=== PATIENT | female | born 2000 | race African-American/Black ===

== ENCOUNTER 2020-12-27 16:26 | Emergency (ER) | payer OTHER, SELFPAY ==
[2020-12-27 17:00] VITALS: BP 141/71; PULSE 82; RESP 19; TEMP 36.1; O2SAT 100
[2020-12-27 17:14] LABS: Basophils Absolute Auto 0.1 K/mm3 (0.0-0.1); Basophils Percent Auto 0.7 % (0.2-1.2); Eosinophils Absolute Auto 0.2 K/mm3 (0-0.3); Eosinophils Percent Auto 2.9 % (0-4.4); Hematocrit 38.1 % (37.0-47.0); Hemoglobin 12.9 g/dL (12.0-15.0); Immature Granulocyte Absolute 0.02 K/mm3 (0.00-0.031); Immature Granulocyte Percent A 0.3 % (0-0.5); Lymphocytes Absolute Auto 3.51 K/mm3 (0.9-3.2); Lymphocytes Percent Auto 46.9 % (18.3-44.2); Mean Corpuscular HGB Conc 33.9 g/dl (32-36); Mean Corpuscular Hemoglobin 29.1 pg (26-34); Mean Platelet Volume 8.8 fl (7.4-10.4); Monocytes Absolute Auto 0.5 K/mm3 (0.1-0.6); Monocytes Percent Auto 6.8 % (2.6-8.5); Neutrophils Absolute Auto 3.2 K/mm3 (1.3-6.7); Neutrophils Percent Auto 42.4 % (45.5-73.1); Platelet Count Result 324 k/mm3 (150-375); Red Blood Count 4.43 M/mm3 (4.2-5.4); Red Cell Distribution Width 12.4 % (11.5-14.5); White Blood Count 7.5 K/mm3 (4.5-10.0)
[2020-12-27 17:25] LABS: Alanine Aminotransferase 11 U/L (4-35); Albumin Level 4.7 g/dL (3.5-5.1); Alkaline Phosphatase 81 U/L (38-126); Anion Gap 7 mmol/L (8-16); Aspartate Amino Transferase 23 U/L (14-36); Bilirubin,Total 0.7 mg/dL (0.2-1.3); Blood Urea Nitrogen 11 mg/dL (7-17); Calcium 9.4 mg/dL (8.4-10.2); Carbon Dioxide 26 mmol/L (22-30); Chloride 105 mmol/L (98-107); Estimated CRCL calculation 87 ml/min; Estimated Glomerular Filt Rate > 60; Glucose 91 mg/dL (65-105); Potassium 4.1 mmol/L (3.4-5.0); Sodium 138 mmol/L (137-145)
[2020-12-27 19:43] VITALS: BP 133/82; PULSE 77; RESP 16; O2SAT 100
--- NOTE | 2020-12-27 19:47 | ED.FEMALEGU ---
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 Patient states that she was on Depo-Provera for a number of years. She states her last dose of this was approximately 2 years ago. She notes that she had a period earlier in November and has bleeding pretty much since then. She called her ASSORTMENT PLANNER's office, was given oral control pills. She notes that she is been taking that for approximately 2 weeks and is still bleeding. She called back today did note that she was still bleeding, was told that the doctor said that everything would be okay and she could follow-up however the nurse answering the phone said that she should probably come into the ER to be evaluated. Related Data Home Medications Medication Instructions Recorded Confirmed No Home Medications 12/27/20 12/27/20 Allergies Allergy/AdvReac Type Severity Reaction Status Date / Time No Known Allergies Allergy Verified 12/27/20 19:42 Review of Systems Review of Systems: Narrative: CONSTITUTIONAL: Denies fever, chills, or sweats. EYES: Denies visual changes, redness, or discharge. ENT: Denies rhinorrhea, congestion, sore throat, or otalgia. CARDIOVASCULAR: Denies chest pain, palpitations, or edema. RESPIRATORY: Denies cough or dyspnea. GASTROINTESTINAL: Denies abdominal pain, nausea, vomiting, or diarrhea. GENITOURINARY: Denies dysuria or hematuria. Endorses vaginal bleeding SKIN: Denies rash or itching. MUSCULOSKELETAL: Denies back pain, joint pain, or myalgia. NEUROLOGIC: Denies headache, numbness, dizziness, or weakness. PSYCHIATRIC: Denies anxiety or depression. Exam Narrative: Exam Narrative: GENERAL: Well-appearing, well-nourished, and in no acute distress. HEAD: Normocephalic, atraumatic. EYES: PERRLA and EOMI. ENT: Nares clear, no rhinorrhea or epistaxis. Mucous membranes moist. NECK: Supple. No adenopathy or masses. No carotid bruits or JVD CHEST: Clear to auscultation. No respiratory distress. No wheezes rales or rhonchi HEART: Regular rate and rhythm. No murmur heard. Normal peripheral pulses. ABDOMEN: Soft, nontender, nondistended, normal active bowel sounds. : deferred per pt EXTREMITIES: Normal range of motion. No edema. SKIN: Warm, dry, no rash. NEURO: No focal deficits. Alert and oriented x3. PSYCH: Normal mood and affect. Course Vital Signs Vital signs: Vital Signs Temperature 36.1 C L 12/27/20 17:00 Pulse Rate 82 12/27/20 17:00 Respiratory Rate 19 12/27/20 17:00 Blood Pressure 141/71 H 12/27/20 17:00 Pulse Oximetry 100 12/27/20 17:00 Temperature 36.1 C L 12/27/20 17:00 Pulse Rate 77 12/27/20 19:43 Respiratory Rate 16 12/27/20 19:43 Blood Pressure 133/82 12/27/20 19:43 Pulse Oximetry 100 12/27/20 19:43 MDM - Female Genitourinary MDM Narrative Medical decision making narrative: Laboratory data reviewed, within normal limits. Patient's hemoglobin is 12.9. Recommended she continue with the oral control pills as this may just take a little while longer to take effect. She can follow-up with her ASSORTMENT PLANNER. I did offer to perform a pelvic exam, patient did politely declined. Feel this is appropriate. Patient will be discharged. Medical Records Attestation: I reviewed the patient's medical records. Lab Data Attestation: I reviewed the patient's lab results. Result diagrams: 12/27/20 17:06 12/27/20 17:06 Labs: Lab Results 12/27/20 12/27/20 Range/Units 17:06 17:06 WBC 7.5 (4.5-10.0) K/mm3 RBC 4.43 (4.2-5.4) M/mm3 Hgb 12.9 (12.0-15.0) g/dL Hct 38.1 (37.0-47.0) % MCV 86.0 (80-100) fl MCH 29.1 (26-34) pg MCHC 33.9 (32-36) g/
[2020-12-27 20:20] LABS: Beta HCG Quantitative < 2.39 mIU/ML
== END 2020-12-27 20:31 | disposition home or self-care (01) ==
PROVIDERS: Emergency Medicine Emergency Medical Services; Emergency Provider Emergency Medicine
DX: N93.9 Abnormal uterine and vaginal bleeding, unspecified (principal)
CPT/HCPCS: 36415; 80053; 84702; 85025; 99283

== ENCOUNTER 2021-05-03 11:12 | Emergency (ER) | payer OTHER, SELFPAY ==
--- NOTE | ~2021-05-03 | US_ITS ---
EXAMINATION: US OB <=14 wk fetus w TV DATE: 05/03/2021 13:02 INDICATION: Vaginal bleeding and lower abdominal pain. Miscarriage. Comparison:No prior studies for comparison. TECHNIQUE: Multiple transabdominal and endovaginal sonographic images of the pelvis performed. FINDINGS: The uterus measures 7.5 x 4.5 x 3.6 cm. The endometrial complex measures 9.5 mm. Endometriu m is heterogeneous. The right ovary measures 2.6 x 2.4 x 2 cm and the left ovary measures 3.1 x 2.5 x 2.1 cm. There are small follicles in each ovary. Normal doppler signal in both ovaries. There is trace free fluid in the pelvis. There are no abnormal masses seen on either side. IMPRESSION: 1. Unremarkable pelvic ultrasound. No evidence for intrauterine or retained products of con ception. Reviewed, dictated and finalized at location B. IMPRESSION: 1. Unremarkable pelvic ultrasound. No evidence for intrauterine or re tained products of conception.
[2021-05-03 11:17] VITALS: BP 124/79; PULSE 96; RESP 18; TEMP 36.6; O2SAT 100
--- NOTE | 2021-05-03 11:59 | ED.FEMALEGU ---
HPI - Female Genitourinary General Chief complaint: Vaginal Bleeding Stated complaint: miscarriage, fever Time Seen by Provider: 05/03/21 11:47 Source: patient and RN notes reviewed Mode of arrival: ambulatory Limitations: no limitations History of Present Illness HPI Narrative: Patient is 21 years old -[place] female presents with dizziness, seconds,, hot feeling, temperature 102 prior to arrival to the emergency room. Patient reported having Tylenol 1-1/2-hour prior to arrival. Patient also complaining of vaginal bleeding which is getting better compared to the last few days. Patient is 6 weeks , had vaginal bleeding 4 days ago, went to [place] [facility], diagnosed of threatened , ultrasound showed intrauterine 6 weeks and 4 days. 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 Patient is healthy otherwise, does not smoke or drink and uses marijuana occasionally Related Data Home Medications Medication Instructions Recorded Confirmed No Home Medications 12/27/20 12/27/20 Allergies Allergy/AdvReac Type Severity Reaction Status Date / Time No Known Allergies Allergy Verified 05/03/21 11:20 Review of Systems Review of Systems: Narrative: CONSTITUTIONAL: Denies fever, chills, or sweats. EYES: Denies visual changes, redness, or discharge. ENT: Denies rhinorrhea, congestion, sore throat, or otalgia. CARDIOVASCULAR: Denies chest pain, palpitations, or edema. RESPIRATORY: Denies cough or dyspnea. GASTROINTESTINAL: Denies abdominal pain, nausea, vomiting, or diarrhea. GENITOURINARY: Denies dysuria or hematuria. SKIN: Denies rash or itching. MUSCULOSKELETAL: Denies back pain, joint pain, or myalgia. NEUROLOGIC: Denies headache, numbness, or weakness. PSYCHIATRIC: Denies anxiety or depression. [facility] Social History Social History Gender identity (if verbalized by the patient): Female Exam Narrative: Exam Narrative: General appearance: Well-developed, well-nourished Skin: Normal color Head: Normocephalic, nontraumatic Eyes: Clear conjunctiva ENT: Oropharynx normal, ears normal, nose normal Neck: Supple, nontender Chest and respiratory: Airway patent, no respiratory distress, no accessory muscle use Heart: Regular rate/rhythm Abdomen: Soft, nontender, no organomegaly, quiet bowel sounds Vascular: Normal peripheral pulses, normal capillary refill. 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 Dupont nurse practitioner, Path Patient can go home and contact Dr. Dupont as needed Date: 05/03/21 Time: 14:40 Vital Signs Vital signs: Vital Signs Temperature 36.6 C 05/03/21 11:17 Pulse Rate 96 05/03/21 11:17 Respiratory Rate 18 05/03/21 11:17 Blood Pressure 124/79 05/03/21 11:17 Pulse Oximetry 100 05/03/21 11:17 Temperature 36.6 C 05/03/21 11:17 Pulse Rate 96 05/03/21 11:17 Respiratory Rate 18 05/03/21 11:17 Blood Pressure 124/79 05/03/21 11:17 Pulse Oximetry 100 05/03/21 11:17 MDM - Female Genitourinary MDM Narrative Medical decision making narrative: My concern as below. Labs, pelvic ultrasound, pelvic exam, UA ordered. Further plan to follow Differential Diagnosis Differential diagnosis: Likely urinary tract infection and other (, urinary tract infection) Lab Data Result diagrams: 05/03/21 12:12 05/03/21 12:12 Labs: Lab Results 05/03/21 05/03/21
[2021-05-03 12:43] LABS: Basophils Percent Auto 0.3 % (0.2-1.2); Eosinophils Absolute Auto 0.1 K/mm3 (0-0.3); Eosinophils Percent Auto 1.3 % (0-4.4); Hematocrit 40.6 % (37.0-47.0); Hemoglobin 13.4 g/dL (12.0-15.0); Immature Granulocyte Absolute 0.02 K/mm3 (0.00-0.031); Immature Granulocyte Percent A 0.3 % (0-0.5); Lymphocytes Absolute Auto 2.77 K/mm3 (0.9-3.2); Mean Corpuscular Hemoglobin 29.3 pg (26-34); Mean Corpuscular Volume 88.6 fl (80-100); Mean Platelet Volume 8.9 fl (7.4-10.4); Monocytes Absolute Auto 0.4 K/mm3 (0.1-0.6); Monocytes Percent Auto 6.2 % (2.6-8.5); Neutrophils Absolute Auto 3.4 K/mm3 (1.3-6.7); Neutrophils Percent Auto 50.9 % (45.5-73.1); Platelet Count Result 275 k/mm3 (150-375); Red Blood Count 4.58 M/mm3 (4.2-5.4); Red Cell Distribution Width 12.4 % (11.5-14.5); White Blood Count 6.8 K/mm3 (4.5-10.0)
[2021-05-03 12:45] LABS: Add Urine Microscopic? YES; Appearance Urine Cloudy (Clear); Bilirubin Urine Negative (Negative); Blood Urine 3+ (Negative); Color Urine Yellow (Yellow); Glucose Urine UA Negative (Negative); Ketones Urine Negative (Negative); Leukocyte Esterase Ur 2+ LEU/UL (Negative); Nitrate Urine Negative (Negative); Protein Urine Negative (Negative); RBC Urine >75 /hpf (0-2); Squamous Epithelial Cell Urine Moderate /hpf (Few); WBC Urine 16-20 /hpf
[2021-05-03 13:04] LABS: Alanine Aminotransferase 12 U/L (4-35); Albumin Level 4.6 g/dL (3.5-5.1); Alkaline Phosphatase 68 U/L (38-126); Anion Gap 12 mmol/L (8-16); Aspartate Amino Transferase 24 U/L (14-36); Bilirubin,Total 0.8 mg/dL (0.2-1.3); Blood Urea Nitrogen 10 mg/dL (7-17); Calcium 9.7 mg/dL (8.4-10.2); Carbon Dioxide 23 mmol/L (22-30); Chloride 106 mmol/L (98-107); Estimated CRCL calculation 97 ml/min; Estimated Glomerular Filt Rate > 60; Glucose 89 mg/dL (65-105); Sodium 141 mmol/L (137-145)
[2021-05-03 13:20] LABS: Beta HCG Quantitative 92.66 mIU/ML
--- NOTE | 2021-05-03 13:30 | PC.NURSE ---
Pt. is refusing IV access and IVFs. ERP aware and is ok
[2021-05-03 14:26] VITALS: BP 116/72; PULSE 84; RESP 14; O2SAT 99
== END 2021-05-03 15:10 | disposition home or self-care (01) ==
PROVIDERS: Emergency Provider Emergency Medicine
DX: O03.9 Complete or unspecified spontaneous abortion without complication (principal)
CPT/HCPCS: 36415; 76801; 76817; 80053; 81001; 84702; 85025; 87086; 99284

== ENCOUNTER 2025-06-06 22:34 | Emergency (ER) | payer OTHER, SELFPAY ==
--- OUTSIDE RECORDS SUMMARY | 2025-06-06 22:36 | XMS_ITS | Encounter Summary ---
Author Organization [facility] Address [address] [place] [address] Care Team Providers Care Steel Barrel Reamer Name Role Phone Unavailable Primary Care Provider Unavailabl e Reason for Visit * Reason Comments Labs Only Encounter Details Date Type Department Care Team (Late st Contact Info) Description 06/05/2025 10:00 AM CDT Office Visit [facility] at [facility] [employer] [place] [address] [place] [address] Screening for condition Social History Tobacco Use Types Packs/Day Years Used Date Smoking Tobacco: Never Smokeless Tobacco: Never Alcohol Use Standard Drinks/Week Comments Not Currently 0 (1 standard drink = 0.6 oz pur e alcohol) Feeling Safe Answer Date Recorded Are you in a relationship wi th someone who hurts you emotionally and/or physically? Unable to obtain 09/01/2023 Comments No Sex and Gender Information Value Date Recorded Sex Assigned at Not on file Legal Sex Female 10:44 AM CDT Gender Identity Not on file Sexual Orientation Not on file documented as of this encounter Last Filed Vital Signs Vital Sign Reading Time Taken Comments Blood Pressure 118/76 06/05/2025 10:11 AM CDT Pulse - - Temperature - - Respiratory Rate - - Oxygen Saturation - - Inhaled Oxygen Concentration - - Weight 71.2 kg (157 lb) 06/05/2025 10:11 AM CDT Height 154.9 cm (5' 1) 06/05/2025 10:11 AM CDT Body Mass Index 29.66 06/05/2025 10:11 AM CDT documented in this encounter Progress Notes * Lily Harmon RN - 06/05/2025 10:11 AM CDT Pt presents for annual wellness screening labs. Right AC successful, 1 stick. Pt tolerated well. documented in this encounter Plan of Treatment Not on file documented as of this encounter Procedures Procedure Name Priority Date/Time Associated Diagnosis Comments CBC WITH DIFFERENTIAL Routine 06/05/2025 9:44 AM CDT Screening for condition TSH Routine 06/05/2025 9:44 AM CDT Screening for condition LIPID PANEL Routine 06/05/2025 9:44 AM CDT Screening for condition COMPREHENSIVE METABOLIC PANEL Routine 06/05/2025 9:44 AM CDT Screening for condition documented in this encounter Results * (ABNORMAL) CBC WITH DIFFERENTIAL (06/05/2025 9:44 AM CDT) WBC 6.1 3.8 - 10.8 Thousand/ uL [facility] RBC 4.72 3.80 - 5.10 Million/u L [facility] HEMOGLOBIN 13.6 11.7 - 15.5 g/dL [facility] HEMATOCRIT 42.6 35.0 - 45.0 % [facility] MCV 90.3 80.0 - 100.0 fL [facility] MCH 28.8 27.0 - 33.0 pg [facility] MCHC 31.9(L) 32.0 - 36.0 g/dL [facility] Comment: For adults, a slight decrease in the calculated MCHC value (in the range of 30 to 32 g/dL) is most likely not clinically significant; however, it should be interpreted with caution in correlation with other red cell parameters and the patient's clinical condition. RDW 13.0 11.0 - 15.0 % [facility] PLATELETS 252 140 - 400 Thousand/ uL [facility] MPV 9.6 7.5 - 12.5 fL [facility] NEUTROPHIL ABSOLUTE 2,983 1,500 - 7,800 cells/uL [facility] LYMPHOCYTE ABSOLUTE 2,513 850 - 3,900 cells/uL [facility] MONOCYTE ABSOLUTE 390 200 - 950 cells/uL [facility] EOSINOPHIL ABSOLUTE 171 15 - 500 cells/uL [facility] BASOPHILS ABSOLUTE 43 0 - 200 cells/uL [facility] NEUTROPHIL 48.9 % [facility] LYMPHOCYTES 41.2 % [facility] MONOCYTE 6.4 % [facility] EOSINOPHILS 2.8 % [facility] BASOPHILS 0.7 % [facility] Comment: Test Performed at: [facility] [place] [address] [place] [address] Bisi Graham Blood 06/05/2025 9:44 AM CDT 06/06/2025 2:01 AM CDT us Nanda Love MD HEMATOLOGY ORDERABLES Final Re sult [facility] [phone] [facility] [place] [address] [place] [address] * COMPREHENSIVE METABOLIC PANEL (06/05/2025 9:44 AM CDT) GLUCOSE 87 65 - 99 mg/dL [facility] Comment: Fasting reference interval BUN 10 7 - 25 mg/dL [facility] [place] CREATININE 0.58 0.50 - 0.96 mg/dL [facility] GFR 128 > OR = 60 mL/min/1. 73m2 [facility] BUN/CREAT RATIO SEE NOTE: 6 - 22 (calc) [facility] Comment: Not Reported: BUN and Creatinine are within reference range. SODIUM 137 135 - 146 mmol/L [facility] POTASSIUM 4.1 3.5 - 5.3 mmol/L [facility] CHLORIDE 103 98 - 110 mmol/L [facility] CO2 26 20 - 32 mmol/L [facility] [place] CALCIUM 9.2 8.6 - 10.2 mg/dL [facility] TOTAL PROTEIN 7.5 6.1 - 8.1 g/dL [facility] ALBUMIN 4.3 3.6 - 5.1 g/dL [facility] GLOBULIN 3.2 1.9 - 3.7 g/dL (calc) [facility] [place] ALBUMIN/GLOBULIN RATIO 1.3 1.0 - 2.5 (calc) [facility] [place] BILIRUBIN TOTAL 0.5 0.2 - 1.2 mg/dL [facility] ALKALINE PHOSPHATASE 83 31 - 125 U/L [facility] AST 14 10 - 30 U/L [facility] ALT 10 6 - 29 U/L [facility] Comment: Test Performed at: [place] [address] [place] [address] NataliyaRaadmarichuy Toña Santos Blood 06/05/2025 9:44 AM CDT 06/06/2025 2:01 AM CDT us Nanda Love MD CHEMISTRY ORDERABLES Final Res ult [facility] [phone] [place] [address] [place] [address] * (ABNORMAL) LIPID PANEL (06/05/2025 9:44 AM CDT) CHOLESTEROL 139 <200 mg/dL [facility] HDL 39(L) > OR = 50 mg/dL [facility] TRIGLYCERIDE 178(H) <150 mg/dL [facility] LDL CALCULATED 73 mg/dL (calc) [facility] Comment: Reference range: <100 Desirable range <100 mg/dL for primary prevention; <70 mg/dL for patients with CHD or diabetic patients with > or = 2 CHD risk factors. LDL-C is now calculated using the Hernandez calculation, which is a validated novel method providing better accuracy than the Friedewald equation in the estimation of LDL-C. Mp BRANCH et al. ELAINA. 2013;310(19): 0337-9633 (http://education.Szl/faq/IEZ850) CHOL/HDL RATIO 3.6 <5.0 (calc) [facility] [place] NON-HDL CHOLESTEROL 100 <130 mg/dL (calc) [facility] Comment: For patients with diabetes plus 1 major ASCVD risk factor, treating to a non-HDL-C goal of <100 mg/dL (LDL-C of <70 mg/dL) is considered a therapeutic option. Test Performed at: [place] [address] [place] [phone] Nataliya-Tanya Ding Vo Blood 06/05/2025 9:44 AM CDT 06/06/2025 2:01 AM CDT Nanda Love MD CHEMISTRY ORDERABLES Final Res ult Performing Organization Address City/[facility]/ZIP Code Phone Number [facility] [phone] [facility] [place] [address] [place] [phone] * TSH (06/05/2025 9:44 AM CDT) TSH 3.05 mIU/L [facility] Comment: Reference Range > or = 20 Years 0.40-4.50 Ranges First trimester 0.26-2.66 Second trimester 0.55-2.73 Third trimester 0.43-2.91 Test Performed at: [place] [address] [place] [phone] Nataliya-Sonidomarichuy Ding Vo Blood 06/05/2025 9:4 4 AM CDT 06/06/2025 2:01 AM CDT Nanda Love MD CHEMISTRY ORDERABLES Final Res ult Performing Organization Address City/[facility]/ZIP Code Phone Number [facility] [phone] [place] [address] [address] [place] [phone] documented in this encounter Visit Diagnoses Diagnosis Screening for condition Screening for unspecified condition documented in this encounter
--- OUTSIDE RECORDS SUMMARY | 2025-06-06 22:36 | XMS_ITS | Encounter Summary ---
Author Organization [facility] Address [address] [place] [address] Care Team Providers Care Enrober Tender Name Role Phone Unavailable Primary Care Provider Unavailabl e Encounter Details Date Type Department Care Team (Late st Contact Info) Description 06/06/2025 Results Follow-Up [facility] at [facility] [employer] [place] [address] [place] [address] Nanda Love MD [address] [address] TSH, LIPID PANEL, COMPREHENSIVE METABOLIC PANEL, CBC WITH DIFFERENTIAL Social History Tobacco Use Types Packs/Day Years [...] on file documented as of this encounter Plan of Treatment Not on file documented as of this encounter Visit Diagnoses Not on filedocumented in this encounter
--- OUTSIDE RECORDS SUMMARY | 2025-06-06 22:37 | XMS_ITS | Patient Health Record ---
Author Organization [facility] [employer] Address [address] [place] [address] Care Team Providers Care Professor Of Family Medicine Name Role Phone Annabella Martin Unavailable [phone] Megan West Unavailable [phone] Allergies No Known Allergies Results Component Value Reference Range Notes THCCOOH Reviewed date:01/13/2025 04:32:14 PM Interpretation: Performing Lab:[address] [place] [address], Director - [id number] Notes/Report: An exception occurred while processing this report and so it has incomplete data. Please contact [employer] for assistance. THCCOOH 30.4 15.0 ng/mL Not Medicated Inconsistent PDF Report CE_OUT_RAW_CO MMON_SRC_ORU UDT Reviewed date:01/10/2025 01:09:25 PM Interpretation: Performing Lab: Notes/Report: THC POS 0 - 50 ng/ml Cocaine NEG 0 - 300 ng/ml Amphetamine NEG 0 - 1000 ng/ml Buprenorphine (BUP) NEG 0 - 10 ng/ml Secobarbital (Bar) NEG 0 - 300 ng/ml Oxazepam (BZO) NEG 0 - 300 ng/ml 1-gpippxnecm-6,4-vbalhnxm-6, 3-dipheny lpyrrolidine (EDDP) NEG 0 - 300 ng/ml Methamphetamine (MET) NEG 0 - 1000 ng/ml Methylenedioxymethamphetamine (MDMA) NEG 0 - 500 ng/ml Morphine (MOP 300/DGS1854) NEG 0 - 300 ng/ml Methadone (MTD) NEG 0 - 300 ng/ml Phencyclidine (PCP) NEG 0 - 25 ng/ml Nortriptyline (TCA) NEG 0 - 1000 ng/ml Oxycodone NEG 0 - 300 ng/ml x NEG 0 - 300 ng/ml Reason For Referral No Information Medications Medication SIG (Take, Route, Fr equency, Duration) Notes Start Date End Date Status Sertraline HCl 25 MG 1 tablet Orally Onc e a day; Duration: 90 days Active Social History Tobacco Use: Social History Observation Description Date Details (start date - stop date) Never Smoker NA - NA Sex Assigned At : Social History Observation Description Sex Assigned At Female Tobacco Control (Standard) Question Answer Notes Tobacco use: Nonsmoker AUDIT-C (Standard) Question Answer Notes Did you have a drink contain ing alcohol in the past year? Yes How often did you have six o r more drinks on one occasion in the past year? Never (0 point) How many drinks did you have on a typical day when you were drinking in the past year? 3 or 4 drinks (1 point) How often did you have a dri nk containing alcohol in the past year? Monthly or less (1 point) Problems Problem Type SNOMED Code ICD Code Onset Dates Problem Status W/U Status Risk Notes Problem Generalized anxiety disorder (84699551) ISSA (generalized anxiety disorder) (F41.1) Active confirmed Problem Mild recurrent major depression (75245867) MDD (major depressive disorder), recurrent episode, mild (F33.0) Active confirmed Vital Signs Heart Rate 98 /min 05/16/2025 Height-cm 154.94 cm 05/16/2025 Blood pressure diastolic 79 mm Hg 05/16/2025 Weight-kg 74.84 kg 05/16/2025 Height 61 in 05/16/2025 Blood pressure systolic 111 mm Hg 05/16/2025 Weight 165 lbs 05/16/2025 BMI 31.17 kg/m2 05/16/2025 Encounters Encounter Location Date Provider Diagnosis [employer] [address] [facility] [address] [place] [address] 01/10/2025 Annabella Veronica ISSA (generalized anxiety disorder) F41.1 and MDD (major depressive disorder), recurrent episode, mild F33.0 [employer] [address] [facility] [address] [place] [address] 02/14/2025 Annabella Kurilla ISSA (generalized anxiety disorder) F41.1 ; MDD (major depressive disorder), recurrent episode, mild F33.0 ; Encounter for screening for depression Z13.31 and Encounter for screening for cardiovascular disorders Z13.6 [facility] [employer] [place] [address] [facility] [address] [place] [address] 02/21/2025 Megan Hemann ISSA (generalized anxiety disorder) F41.1 ; MDD (major depressive disorder), recurrent episode, mild F33.0 and Encounter for screening for depression Z13.31 [facility] [employer] [place] [address] [facility] [address] [place] [address] 03/21/2025 Megan Hemann ISSA (generalized anxiety disorder) F41.1 ; MDD (major depressive disorder), recurrent episode, mild F33.0 and Encounter for screening for depression Z13.31 [facility] [employer] [place] [address] [address] 04/04/2025 Megan Hemann ISSA (generalized anxiety disorder) F41.1 and MDD (major depressive disorder), recurrent episode, mild F33.0 [facility] [employer] [place] [address] [address] 04/18/2025 Megan Hemann Encounter for screen ing for depression Z13.31 ; ISSA (generalized anxiety disorder) F41.1 and MDD (major depressive disorder), recurrent episode, mild F33.0 [facility] [employer] [place] [address] [address] 05/02/2025 Megan Hemann ISSA (generalized anxiety disorder) F41.1 and MDD (major depressive disorder), recurrent episode, mild F33.0 [facility] [employer] [place] [address] [facility] [address] [place] [address] 05/16/2025 Annabella Kurilla ISSA (generalized anxiety disorder) F41.1 ; MDD (major depressive disorder), recurrent episode, mild F33.0 ; Encounter for screening for depression Z13.31 and Encounter for screening for cardiovascular disorders Z13.6 [facility] [employer] [place] [address] [facility] [address] [place] [address] 05/16/2025 Megan Hemann ISSA (generalized anxiety disorder) F41.1 and MDD (major depressive disorder), recurrent episode, mild F33.0 [facility], [facility] [address] [place] [address] 05/30/2025 Megan West ISSA (generalized anxiety disorder) F41.1 ; MDD (major depressive disorder), recurrent episode, mild F33.0 and Encounter for screening for depression Z13.31 [facility] [place] [address] [place] [address] 01/10/2025 Annabelladanielle Martin [facility], [facility] [address] [place] [address] 01/13/2025 Annabella Martin [facility], [facility] [address] [facility] [address] [place] [address] 01/13/2025 Annabelladanielle Martin [facility], [place] [address] [facility] [address] [place] [address] 01/13/2025 Annabella Martin [facility], [place] [address] [facility] [address] [place] [address] 01/17/2025 Annabella Martin [facility], [place] [address] [facility] [address] [place] [address] 01/19/2025 Annabella Martin [facility], [place] [address] [facility] [address] [place] [address] 01/26/2025 Annabelladanielle Martin [facility], [place] [address] [facility] [address] [place] [address] 01/27/2025 Annabella Martin Assessments Encounter Date Diagnosis (ICD Code) Assessment Notes Treatment Notes Treatment Clinical Notes Section Notes 01/10/2025 ISSA (generalized anxiety disorder) (ICD-10 - F41.1) SSRI/SNRI side effects discussed including but not limited to, gastric upset, nausea, vomiting, diarrhea and/or constipation, weight changes, sexual side effects including loss of libido, increased suicidal thoughts/behavi ors in children and young adults, and serotonin syndrome. 01/10/2025 MDD (major depressive disorder), recurrent episode, mild (ICD-10 - F33.0) 02/14/2025 ISSA (generalized anxiety disorder) (ICD-10 - F41.1) SSRI/SNRI side effects discussed including but not limited to, gastric upset, nausea, vomiting, diarrhea and/or constipation, weight changes, sexual side effects including loss of libido, increased suicidal thoughts/behavi ors in children and young adults, and serotonin syndrome. 02/21/2025 ISSA (generalized anxiety disorder) (ICD-10 - F41.1) 03/21/2025 ISSA (generalized anxiety disorder) (ICD-10 - F41.1) 04/04/2025 ISSA (generalized anxiety disorder) (ICD-10 - F41.1) 04/18/2025 Encounter for screening for depression (ICD-10 - Z13.31) 04/18/2025 ISSA (generalized anxiety disorder) (ICD-10 - F41.1) 05/02/2025 ISSA (generalized anxiety disorder) (ICD-10 - F41.1) 05/16/2025 ISSA (generalized anxiety disorder) (ICD-10 - F41.1) 05/16/2025 ISSA (generalized anxiety disorder) (ICD-10 - F41.1) SSRI/SNRI side effects discussed including but not limited to, gastric upset, nausea, vomiting, diarrhea and/or constipation, weight changes, sexual side effects including loss of libido, increased suicidal thoughts/behavi ors in children and young adults, and serotonin syndrome. 05/16/2025 MDD (major depressive disorder), recurrent episode, mild (ICD-10 - F33.0) 05/30/2025 ISSA (generalized anxiety disorder) (ICD-10 - F41.1) 05/30/2025 MDD (major depressive disorder), recurrent episode, mild (ICD-10 - F33.0) 05/16/2025 Encounter for screening for depression (ICD-10 - Z13.31) 05/16/2025 MDD (major depressive disorder), recurrent episode, mild (ICD-10 - F33.0) 05/02/2025 MDD (major depressive disorder), recurrent episode, mild (ICD-10 - F33.0) 04/18/2025 MDD (major depressive disorder), recurrent episode, mild (ICD-10 - F33.0) 04/04/2025 MDD (major depressive disorder), recurrent episode, mild (ICD-10 - F33.0) 03/21/2025 MDD (major depressive disorder), recurrent episode, mild (ICD-10 - F33.0) 02/21/2025 MDD (major depressive disorder), recurrent episode, mild (ICD-10 - F33.0) 02/14/2025 MDD (major depressive disorder), recurrent episode, mild (ICD-10 - F33.0) 02/21/2025 Encounter for screening for depression (ICD-10 - Z13.31) 03/21/2025 Encounter for screening for depression (ICD-10 - Z13.31) 05/16/2025 Encounter for screening for cardiovascular disorders (ICD-10 - Z13.6) 02/14/2025 Encounter for screening for depression (ICD-10 - Z13.31) 05/30/2025 Encounter for screening for depression (ICD-10 - Z13.31) 02/14/2025 Encounter for screening for cardiovascular disorders (ICD-10 - Z13.6) 01/10/2025 Other Start sertraline 25mg daily for mood, irritability, anxiety. Patient educated on all medications including potential benefits, side effects, risks. Educated on proper dosing schedule and importance of compliance. Referred to counseling -Assessment and treatment plan reviewed with patient. -Compliance with treatment plan importance discussed. -Discussed the risks/benefits of this medication -Discussed medication side effects. -Contact office if symptoms worsen. -Discussed that it can take up to 6-8 weeks to see full therapeutic effects of psychotropic medications. -Crisis prevention hotline 988. 02/14/2025 Other Stable, cont sertraline 25mg daily for now. -refill sent in Patient educated on all medications including potential benefits, side effects, risks. Educated on proper dosing schedule and importance of compliance. Scheduled for counseling with Megan next week -Assessment and treatment plan reviewed with patient. -Compliance with treatment plan importance discussed. -Discussed the risks/benefits of this medication -Discussed medication side effects. -Contact office if symptoms worsen. -Discussed that it can take up to 6-8 weeks to see full therapeutic effects of psychotropic medications. -Crisis prevention hotline 988. 05/16/2025 Other Stable on current medication regimen, continue at current doses. Declines need for medication adjustment -Refills sent in today -No concerns today Patient educated on all medications including potential benefits, side effects, risks. Educated on proper dosing schedule and importance of compliance. Cont counseling with Megan -Assessment and treatment plan reviewed with patient. -Compliance with treatment plan importance discussed. -Discussed the risks/benefits of this medication -Discussed medication side effects. -Contact office if symptoms worsen. -Discussed that it can take up to 6-8 weeks to see full therapeutic effects of psychotropic medications. -Crisis prevention hotline 878. Plan Of Treatment Next Appt Details Provider Name:Megan West, 06/13/2025 11:00:00 AM, [address], [place] [address], [place], [address], Provider Name:Megan Herreragio, 07/10/2025 09:00:00 AM, [address], [facility], [place], [address], Provider Name:Megan Herreragio, 07/25/2025 11:00:00 AM, [address], [address], [address], Provider Name:Annabella marie, 08/16/2025 02:30:00 PM, [address], [address], [address], Insurance Providers Payer Name Payer Address Payer Phone Subscriber Number Group Number Insured Name Patient Relationship to Insured Coverage Start Date Coverage End Date [employer] Benefit Plan Management [address] [facility] [place] [id number] Thao Bowling Self - patient is the insured Medical (General) History Medical History History ICD Code abdominal aortic aneurysm: No atrial fibrillation: No chronic fatigue syndrome: No essential tremor: No hyperlipidemia: No hypertension: No Parkinson's disease: No restless leg syndrome: No stroke: No subdural hematoma: No type 1 diabetes mellitus: No type 2 diabetes mellitus: No vitamin B12 deficiency: No vitamin D deficiency: No hypertension: Yes undefined Surgical History Surgery Date(Month/Year) tonsillectomy 2005
--- OUTSIDE RECORDS SUMMARY | 2025-06-06 22:37 | XMS_ITS | Clinical Summary ---
Author Organization [facility] Address [address] [place] [address] Care Team Providers Care Security Representative Name Role Phone Unknown, Notinfile Primary Care Provider Unavail able Allergies No known active allergies Medications No known medications Active Problems No known active problems Social History Tobacco Use Types Packs/Day Years Used Date Smoking Tobacco: Never Assessed Comments Unknown Sex and Gender Information Value Date Recorded Sex Assigned at Not on file Legal Sex Female 8:39 AM CDT Gender Identity Not on file Sexual Orientation Not on file Obstetrics History Last Filed Vital Signs Vital Sign Reading Time Taken Comments Blood Pressure 132/82 11/05/2022 3:00 PM TUMBLING INSTRUCTOR Pulse 84 11/05/2022 3:00 PM TUMBLING INSTRUCTOR Temperature - - Respiratory Rate - - Oxygen Saturation - - Inhaled Oxygen Concentration - - Weight 68 kg (150 lb) 11/05/2022 3:00 PM TUMBLING INSTRUCTOR Height 132.1 cm (4' 4) 11/05/2022 3:00 PM TUMBLING INSTRUCTOR Body Mass Index 39 11/05/2022 3:00 PM TUMBLING INSTRUCTOR Plan of Treatment Health Maintenance Due Date Last Done Comments Cervical Cancer Screening 1999 Depression Screening 1999 Hepatitis C Screening 1999 DTaP/Tdap/Td Vaccine (1 - Tdap) 2010 Varicella Vaccines (1 of 2 - 13+ 2-dose series) 2012 HPV Vaccines (1 - 3-dose series) 2014 Hepatitis B Screening 2017 Regular Well Visit/Exam 18-64 2017 Influenza Vaccine (Season Ended) 2025 Pneumococcal vaccine <65 Aged Out No longer eligible based on patient's age to complete this topic Insurance CLARISSA ALLEGIANCE Care Teams Security Representative Relationship Specialty Start Date End Date Unknown, Notinfile PCP - General 09/26/22
--- OUTSIDE RECORDS SUMMARY | 2025-06-06 22:37 | XMS_ITS | Clinical Summary ---
Author Organization [facility] Address [address] [place] [address] Care Team Providers Care Financial Advisor Name Role Phone Unavailable Primary Care Provider Unavailabl e Source Comments [facility],non-owned Affiliates and Associated Physician Practices is amultiple site organization consisting of ambulatory clinics and hospital sitesin [place], [place], [place] and [place]. This disclosure is being madepursuant to the Care Everywhere program and may not contain all information available regarding this patient. Last updated 18.[facility] [employer] Allergies No known active allergies Medications * Be aware that medications may not be up to date on this document. Alwaysverify current medications with the patient. No known medications Social History Tobacco Use Types Packs/Day Years Used Date Smoking Tobacco: Never Smokeless Tobacco: Never Alcohol Use Standard Drinks/Week Comments No 0 (1 standard drink = 0.6 oz pur e alcohol) Comments Unknown Sex and Gender Information Value Date Recorded Sex Assigned at Not on file Legal Sex Female 2:11 PM DIRECTOR COUNSELING [employer] Gender Identity Not on file Sexual Orientation Not on file Last Filed Vital Signs Vital Sign Reading Time Taken Comments Blood Pressure 102/50 08/17/2012 9:00 AM CDT Pulse 88 08/17/2012 9:00 AM CDT Temperature 37 C (98.6 F) 08/17/2012 9:00 AM CDT Respiratory Rate 20 08/17/2012 9:00 AM CDT Oxygen Saturation 98% 08/17/2012 9:00 AM CDT Inhaled Oxygen Concentration - - Weight 52 kg (114 lb 10.2 oz) 08/17/2012 9:00 AM CDT Height 153.3 cm (5' 0.35) 08/17/2012 9:00 AM CD T Body Mass Index 22.13 08/17/2012 9:00 AM CDT Plan of Treatment Health Maintenance Due Date Last Done Comments HIV SCREENING 2014 HPV VACCINE (1 - 3-dose series) 2014 HEPATITIS C SCREENING 03/24/2017 DTAP/TDAP/TD VACCINES (1 - Tdap) 2018 HEPATITIS B VACCINE (1 of 3 - 19+ 3-dose series) 2018 COVID-19 VACCINE (1 - 2023-2 5 season) 2024 DEPRESSION SCREENING 11/23/2024 INFLUENZA VACCINE (#1) 2025 ZOSTER VACCINE (1 of 2) 2049 HIB VACCINE Aged Out No longer eligi ble based on patient's age to complete this topic MENINGOCOCCAL (Group B) VACC INE SHARED DECISION-MAKING Aged Out No longer eligibl e based on patient's age to complete this topic MENINGOCOCCAL GROUPS A/C/Y/W VACCINE Aged Out No longer eligible b ased on patient's age to complete this topic PNEUMOCOCCAL VACCINE Aged Out No long er eligible based on patient's age to complete this topic Insurance
--- OUTSIDE RECORDS SUMMARY | 2025-06-06 22:37 | XMS_ITS | Data Portability ---
Author Organization DAMIAN MAEIrineo Varela Address [address] [place] [address] Care Team Providers Care Director Corporate Sales Name Role Phone SHEFALISUSANNE KNUTSON Rn Rehabilitation Assessment Encounter Date Assessment Date Assessment LastModified by Organization Details LastModified Time 05/01/2021 05/01/2021 RISSA Simmons mwasserman Not available 05/01/2021 12:52:26 05/30/2021 05/30/2021 Jael STEARNS Not available 05/30/2021 22:56:41 Plan of Treatment Reminders Order Date Submit Date Provider Last Modified By Organization Details Last Modified Time Details Appointments None recorded. Lab test, urine 2020 021 [email or web address] 1 In-Office Order, Internal Use Only DO Not Attach Compendium DO Not Attach Compendium, Do Not Delete/merge, [id number] 15:41:17 urinalysi s, dipstick 2020 021 [email or web address] 1 In-Office Order, Internal Use Only DO Not Attach Compendium DO Not Attach Compendium, Do Not Delete/merge, [id number] 15:41:17 bacterial vaginosis panel, vaginal 2020 021 [facility], [address] [place] [address], [address], [place], [address], 14:22:59 mthfr (methylen etetrahyd rofolate reductase ) mutation, blood/tis zoila 2020 021 [facility], [address] [facility], [address], [place], [address], 20:08:22 HCG, intact + beta subunit, quant, serum or plasma 2020 021 [facility], [address] [facility] [address], [address], [place], [address], 20:08:21 progester one, serum 2020 [facility], [address] [place] [address], [address], [place], [address], 20:08:22 hepatitis panel (A+B+C), acute, serum 2020 [facility], [address] [facility], [address], [place], [address], 08:19:58 hepatitis B surface Ab, qualitati ve, serum 2020 [facility], [address] [place] [address], [address], [place], [address], 08:19:58 HIV 1+2 AB + HIV 1 p24 Ag, qualitati ve immunoass ay, serum 2020 [facility], [address], [place] [address], [place], [address], 08:20:00 HSV 2 IgG Ab, QN, IA, serum 2020 [facility] (Centralized Electronic Ordering - All Locations), Patient Can Go To The Location Of Their Choice, 08:20:00 RPR (rapid plasma reagin), serum 2020 [facility] (Centralized Electronic Ordering - All Locations), Patient Can Go To The Location Of Their Choice, 08:19:59 bacterial vaginosis panel, vaginal 2020 [facility] Patient Can Go To The Location Of Their Choice, 15:05:20 culture, vaginal/r ectal, streptoco ccus group B 2020 021 [facility]), Patient Can Go To The Location Of Their Choice, 15:05:20 pap, IG + HPV, cervical - please use Z11.51 in addition to code above for HPV testing. 2019 [facility], [address], [place], [address], 0 07:26:39 urinalysi s, dipstick 2019 [facility] In-Office Order, Internal Use Only DO Not Attach Compendium DO Not Attach Compendium, Do Not Delete/merge, 0 14:57:22 test, urine 2019 [facility] In-Office Order, Internal Use Only DO Not Attach Compendium DO Not Attach Compendium, Do Not Delete/merge, 0 14:57:22 HbA1c (hemoglob in A1c), blood 2019 020 [facility], [address], [address], 0 20:08:28 TSH, ultra-sen sitive, serum 2019 020 [facility], [address] [facility] [address], [place], [address], 0 20:08:29 lipid panel, serum 2019 020 [facility], [address] [place] [address], [place], [address], 0 20:08:27 CMP, serum or plasma 2019 [facility], [address] [place] [address], [place], [address], 0 20:08:26 CBC 2019 [facility], [address] [place] [address], [place], [address], 0 20:08:27 bacterial vaginosis panel, vaginal 2019 [facility] (Centralized Electronic Ordering - All Locations), Patient Can Go To The Location Of Their Choice, [id number] 0 10:37:20 culture, vaginal/r ectal, streptoco ccus group B 2019 [facility] (Centralized Electronic Ordering - All Locations), Patient Can Go To The Location Of Their Choice, [id number] 0 10:37:21 hepatitis panel (A+B+C), acute, serum 2019 [facility], [address] [facility], [facility] [address], [place], [address], 0 20:08:28 hepatitis B surface Ab, qualitati ve, serum 2019 [facility], [address] [facility], [facility] [address], [place], [address], 0 20:08:29 HIV 1+2 AB + HIV 1 p24 Ag, qualitati ve immunoass ay, serum 2019 [facility], [address] [facility], [place], [address], 0 20:08:30 treponema pallidum screen, serum, reflex confirmat ion 2019 020 [facility] (Centralized Electronic Ordering - All Locations), Patient Can Go To The Location Of Their Choice, [id number] 0 20:08:30 HSV 2 IgG Ab, QN, IA, serum 2019 020 [facility] (Centralized Electronic Ordering - All Locations), Patient Can Go To The Location Of Their Choice, [id number] 0 20:08:31 Referral counselin g referral 2020 021 tova Lopez (), [address] [place] [address], [address], 1 14:21:36 counselin feliciano referral 2020 021 kayy Lopez (), [address] [place] [address], [address], 1 13:38:12 Procedures None recorded. Surgeries None recorded. Imaging None recorded. Medication Orders acyclovir 800 mg tablet 2020 021 [facility], [address] [place] [address], [id number], 1 12:13:21 escitalop mary 10 mg tablet 2020 021 [facility], [address] [place] [address], [id number], 1 15:04:24 [facility]ita min tablet [facility], [address] [place] [address], [id number], 1 11:49:33 Calcium with Vitamin D 600 mg-10 mcg (400 unit) tablet 2019 020 [facility], [address], [place], [id number], 11:49:21 Patient TargetsNo targets recorded. Patient Instructions Encounter Date Encounter Id Patient Instructions Last Modified By Organization Details Last Modified Time 07/09/2020 [id number] genital herpes: care instructions mwasserman Not available 07/09/2020 14:57:22 12/04/2020 [id number] genital herpes: care instructions mwasserman Not available 12/04/2020 14:57:50 05/01/2021 [id number] incomplete miscarriage: care instructions mwasserman Not available 05/01/2021 12:54:42 learning about mood disorders mwasserman Not available 05/01/2021 13:03:48 05/30/2021 [id number] miscarriage: care instructions Not available 05/30/2021 15:41:31 Reason for Referral Counseling Referral for Depr essive disorder Referring Physician: Jeremy Dupont, PROFESSIONAL BONDSMAN, Encounter Date: 05/01/2021 Counseling Referral for Willow r depressive disorder recent miscarriage Referring Physician: Naomi Mcgowan, Bicycle Ii Assembler, Encounter Date: 05/30/2021 Results Created Date Observation Date Name Description Value Unit Range Abnormal Flag Note LastModifiedBy Organization Detail LastModifiedTime 05/30/20 21 05/30/2021 pregn afshan test, urine HCG negati ve Not Available In-Office Order Internal Use Only DO Not Attach Compendium DO Not Attach Compendium, Do Not Delete/merge, [id number] 05/30/2021 15:14:29 07/09/20 20 07/09/2020 pregn afshan test, urine HCG negati ve Not Available In-Office Order Internal Use Only DO Not Attach Compendium DO Not Attach Compendium, Do Not Delete/merge, [id number] 07/09/2020 14:37:45 07/09/20 20 07/09/2020 urina lysis , dipst ick Leukocytes Negati ve Not Available In-Office Order Internal Use Only DO Not Attach Compendium DO Not Attach Compendium, Do Not Delete/merge, 07/09/2020 14:37:43 07/09/20 20 07/09/2020 urina lysis , dipst ick Nitrite negati ve Not Available In-Office Order Internal Use Only DO Not Attach Compendium DO Not Attach Compendium, Do Not Delete/merge, 07/09/2020 14:37:43 07/09/20 20 07/09/2020 urina lysis , dipst ick Urobilinogen .2 Not Available In-Of fice Order Internal Use Only DO Not Attach Compendium DO Not Attach Compendium, Do Not Delete/merge, 07/09/2020 14:37:43 07/09/20 20 07/09/2020 urina lysis , dipst ick Protein Negati ve Not Available In-Office Order Internal Use Only DO Not Attach Compendium DO Not Attach Compendium, Do Not Delete/merge, 07/09/2020 14:37:43 07/09/20 20 07/09/2020 urina lysis , dipst ick pH 6.0 Not Available In-Office Order Internal Use Only DO Not Attach Compendium DO Not Attach Compendium, Do Not Delete/merge, 07/09/2020 14:37:43 07/09/20 20 07/09/2020 urina lysis , dipst ick Blood Non-He molyze d: Trace Not Available In-Office Order Internal Use Only DO Not Attach Compendium DO Not Attach Compendium, Do Not Delete/merge, 07/09/2020 14:37:43 07/09/20 20 07/09/2020 urina lysis , dipst ick Specific [place] 1.030 Not Available In-Off ice Order Internal Use Only DO Not Attach Compendium DO Not Attach Compendium, Do Not Delete/merge, 07/09/2020 14:37:43 07/09/20 20 07/09/2020 urina lysis , dipst ick Ketone Negati ve Not Available In-Office Order Internal Use Only DO Not Attach Compendium DO Not Attach Compendium, Do Not Delete/merge, 07/09/2020 14:37:43 07/09/20 20 07/09/2020 urina lysis , dipst ick Bilirubin Negati ve Not Available In-Office Order Internal Use Only DO Not Attach Compendium DO Not Attach Compendium, Do Not Delete/merge, [id number] 07/09/2020 14:37:43 07/09/20 20 07/09/2020 urina lysis , dipst ick Glucose Negati ve Not Available In-Office Order Internal Use Only DO Not Attach Compendium DO Not Attach Compendium, Do Not Delete/merge, 07/09/2020 14:37:43 07/09/20 20 07/09/2020 urina lysis , dipst ick Appearance Clear Not Available In-Offi ce Order Internal Use Only DO Not Attach Compendium DO Not Attach Compendium, Do Not Delete/merge, 07/09/2020 14:37:43 07/09/20 20 07/09/2020 urina lysis , dipst ick Color Yellow Not Available In-Office Order Internal Use Only DO Not Attach Compendium DO Not Attach Compendium, Do Not Delete/merge, [id number] 07/09/2020 14:37:43 07/09/20 20 07/10/2020 CMP, serum or plasm a glucose 76 mg/dL 65-99 Not Available [facility] ([facility]) [address] [place], [address], 07/10/2020 20:08:26 07/09/20 20 07/10/2020 CMP, serum or plasm a BUN 7 mg/dL 6-20 Not Available [facility] ([facility]) [address] [place], [address], 07/10/2020 20:08:26 07/09/20 20 07/10/2020 CMP, serum or plasm a creatinine 0.66 mg/dL 0.57-1 .00 Not Available [facility] ([facility]) [address] [place], [address], 07/10/2020 20:08:26 07/09/20 20 07/10/2020 CMP, serum or plasm a eGFR if nonafricn AM 127 mL/mi n/1.7 3 >59 Not Available [facility] ([facility]) [address] [place], [address], 07/10/2020 20:08:26 07/09/20 20 07/10/2020 CMP, serum or plasm a eGFR if africn AM 146 mL/mi n/1.7 3 >59 Not Available [facility] ([facility]) [address] [place], [address], 07/10/2020 20:08:26 07/09/20 20 07/10/2020 CMP, serum or plasm a BUN/creatini ne ratio 11 9-23 Not Available [facility] ([facility]) [address] [place], [address], 07/10/2020 20:08:26 07/09/20 20 07/10/2020 CMP, serum or plasm a sodium 140 mmol/ L 134-14 4 Not Available [facility] ([facility]) [address] [place], [address], 07/10/2020 20:08:26 07/09/20 20 07/10/2020 CMP, serum or plasm a potassium 3.8 mmol/ L 3.5-5. 2 Not Available [facility] ([facility]) [address] [place], [address], 07/10/2020 20:08:26 07/09/20 20 07/10/2020 CMP, serum or plasm a chloride 101 mmol/ L 96-106 Not Available [facility] ([facility]) [address] [place], [address], 07/10/2020 20:08:26 07/09/20 20 07/10/2020 CMP, serum or plasm a carbon dioxide, total 22 mmol/ L 20-29 Not Available [facility] ([facility]) [address] [place], [address], 07/10/2020 20:08:26 07/09/20 20 07/10/2020 CMP, serum or plasm a calcium 9.4 mg/dL 8.7-10 .2 Not Available [facility] ([facility]) [address] [place], [address], 07/10/2020 20:08:26 07/09/20 20 07/10/2020 CMP, serum or plasm a protein, total 7.4 g/dL 6.0-8. 5 Not Available [facility] ([facility]) [address] [place], [address], 07/10/2020 20:08:26 07/09/20 20 07/10/2020 CMP, serum or plasm a albumin 4.4 g/dL 3.9-5. 0 Not Available [facility] ([facility]) [address] [place], [address], 07/10/2020 20:08:26 07/09/20 20 07/10/2020 CMP, serum or plasm a globulin, total 3.0 g/dL 1.5-4. 5 Not Available [facility] ([facility]) [address] [place], [address], 07/10/2020 20:08:26 07/09/20 20 07/10/2020 CMP, serum or plasm a A/G ratio 1.5 1.2-2. 2 Not Available [facility] ([facility]) [address] [place], [address], 07/10/2020 20:08:26 07/09/20 20 07/10/2020 CMP, serum or plasm a bilirubin, total 0.7 mg/dL 0.0-1. 2 Not Available [facility] ([facility]) [address] [place], [address], 07/10/2020 20:08:26 07/09/20 20 07/10/2020 CMP, serum or plasm a alkaline phosphatase 71 IU/L 39-117 Not Available [facility] ([facility]) [address] [place], [address], 07/10/2020 20:08:26 07/09/20 20 07/10/2020 CMP, serum or plasm a AST (SGOT) 15 IU/L 0-40 Not Available [facility] ([facility]) [address] [place], [address], 07/10/2020 20:08:26 07/09/20 20 07/10/2020 CMP, serum or plasm a ALT (SGPT) 12 IU/L 0-32 Not Available [facility] ([facility]) [address] [facility], [address], 07/10/2020 20:08:26 07/09/20 20 07/10/2020 CBC WBC 6.2 x10e3 /uL 3.4-10 .8 Not Available [facility] ([facility]) [address] [facility], [address], 07/10/2020 20:08:27 07/09/20 20 07/10/2020 CBC RBC 4.35 x10e6 /uL 3.77-5 .28 Not Available [facility] ([facility]) [address] [facility], [address], 07/10/2020 20:08:27 07/09/20 20 07/10/2020 CBC hemoglobin 12.7 g/dL 11.1-1 5.9 Not Available [facility] ([facility]) [address] [facility], [address], 07/10/2020 20:08:27 07/09/20 20 07/10/2020 CBC hematocrit 38.3 % 34.0-4 6.6 Not Available [facility] ([facility]) [address] [facility], [address], 07/10/2020 20:08:27 07/09/20 20 07/10/2020 CBC MCV 88 fL 79-97 Not Available [facility] ([facility]) [address] [facility], [address], 07/10/2020 20:08:27 07/09/20 20 07/10/2020 CBC MCH 29.2 pg 26.6-3 3.0 Not Available [facility] ([facility]) [address] [place], [address], 07/10/2020 20:08:27 07/09/20 20 07/10/2020 CBC MCHC 33.2 g/dL 31.5-3 5.7 Not Available [facility] ([facility]) [address] [place], [address], 07/10/2020 20:08:27 07/09/20 20 07/10/2020 CBC RDW 13.1 % 11.7-1 5.4 Not Available [facility] ([facility]) [address] [place], [address], 07/10/2020 20:08:27 07/09/20 20 07/10/2020 CBC platelets 291 x10e3 /uL 150-45 0 Not Available [facility] ([facility]) [address] [place], [address], 07/10/2020 20:08:27 07/09/20 20 07/10/2020 CBC NRBC ACID CONDENSER Not Available [facility] ([facility]) [address] [place], [address], 07/10/2020 20:08:27 07/09/20 20 07/10/2020 lipid panel , serum cholesterol, total 126 mg/dL 100-19 9 Not Available [facility] ([facility]) [address] [place], [address], 07/10/2020 20:08:27 07/09/20 20 07/10/2020 lipid panel , serum triglyceride s 150 mg/dL 0-149 above high normal Not Available [facility] ([facility]) [address] [place], [address], 07/10/2020 20:08:27 07/09/20 20 07/10/2020 lipid panel , serum HDL cholesterol 34 mg/dL >39 below low normal Not Available [facility] ([facility]) [address] [place], [address], 07/10/2020 20:08:27 07/09/20 20 07/10/2020 lipid panel , serum VLDL cholesterol sohail 30 mg/dL 5-40 Not Available [facility] ([facility]) [address] [place], [address], 07/10/2020 20:08:27 07/09/20 20 07/10/2020 lipid panel , serum LDL cholesterol calc 62 mg/dL 0-99 Not Available [facility] ([facility]) [address] [facility], [address], 07/10/2020 20:08:27 07/09/20 20 07/10/2020 lipid panel , serum comment: ACID CONDENSER Not Available [facility] ([facility]) [address] [place], [address], 07/10/2020 20:08:27 07/09/20 20 07/10/2020 lipid panel , serum LDL/HDL ratio 1.8 ratio 0.0-3. 2 LDL/H DL Ratio Men Women 1/2 Avg.R isk 1.0 1.5 Avg.R isk 3.6 3.2 2X Avg.R isk 6.2 5.0 3X Avg.R isk 8.0 6.1 Not Available [facility] ([facility]) [address] [place], [address], 07/10/2020 20:08:27 07/09/20 20 07/10/2020 hepat itis panel (A+B+ C), acute , serum hep A Ab, IgM Negati ve negati ve Not Available [facility] ([facility]) [address] [place], [address], 07/10/2020 20:08:28 07/09/20 20 07/10/2020 hepat itis panel (A+B+ C), acute , serum HBsAg screen Negati ve negati ve Not Available [facility] ([facility]) [address] [facility], [place], [address], 07/10/2020 20:08:28 07/09/20 20 07/10/2020 hepat itis panel (A+B+ C), acute , serum hep B core Ab, IgM Negati ve negati ve Not Available [facility] ([facility]) [address] [facility], [place], [address], 07/10/2020 20:08:28 07/09/20 20 07/10/2020 hepat itis panel (A+B+ C), acute , serum hep C virus Ab <0.1 s/co_ ratio 0.0-0. 9 Negat tia: < 0.8 Indet ermin ate: 0.8 - 0.9 Posit tia: > 0.9 The CDC recom mends that a posit tia HCV antib fran resul t be follo wed up with a HCV Nucle ic Acid Ampli ficat ion test (5507 13). Not Available [facility] ([facility]) [address] [facility], [place], [address], 07/10/2020 20:08:28 07/09/20 20 07/10/2020 HbA1c (hemo globi n A1c), blood hemoglobin A1C 4.9 % 4.8-5. 6 Predi abete s: 5.7 - 6.4 Diabe robert: >6.4 Glyce grey contr ol for adult s with diabe robert: <7.0 Not Available [facility] ([facility]) [address] [facility], [place], [address], 07/10/2020 20:08:28 07/09/2007/10/2020 TSH, ultra -sens itive , serum TSH 3.730 uIU/m L 0.450- 4.500 Not Available [facility] ([facility]) [address] [facility], [place], [address], 07/10/2020 20:08:29 07/09/20 20 07/10/2020 hepat itis B surfa ce Ab, quali tativ e, serum hep B surface Ab, qual Non Reacti ve Non React tia: Incon siste nt with immun ity, less than 10 mIU/m L React tia: Consi stent with immun ity, great er than 9.9 mIU/m L Not Available [facility] ([facility]) [address] [facility], [place], [address], 07/10/2020 20:08:29 07/09/20 20 07/10/2020 trepo nema palli dum scree n, serum , refle x confi rmati on T pallidum antibodies Non Reacti ve non reacti ve Not Available [facility] ([facility]) [address] [facility], [place], [address], 07/10/2020 20:08:30 07/09/20 20 07/10/2020 HIV 1+2 AB + HIV 1 p24 Ag, quali tativ e immun oassa y, serum HIV screen 4TH generation wrfx Non Reacti ve non reacti ve Not Available [facility] ([facility]) [address] [facility], [place], [address], 07/10/2020 20:08:30 07/09/20 20 07/10/2020 HSV 2 IgG Ab, QN, IA, serum hsv 2 IgG, type spec <0.91 index 0.00-0 .90 Negat tia <0.91 Equiv ocal 0.91 - 1.09 Posit tia >1.09 Note: Negat tia indic ates no antib odies detec modesto to HSV-2 . Equiv ocal may sugge st early infec tion. If clini kim appro priat e, retes t at later date. Posit tia indic ates antib odies detec modesto to HSV-2 . Not Available [facility] ([facility]) [address] [facility], [place], [address], 07/10/2020 20:08:31 07/09/20 20 07/10/2020 pap, IG + HPV, cervi sohail diagnosis: Commen t NEGAT TIA FOR INTRA EPITH ELIAL LESIO N OR DEBBIE ALFORD . Not Available [facility] ([facility]) [address] [place], [address], 07/11/2020 07:26:39 07/09/20 20 07/10/2020 pap, IG + HPV, cervi sohail specimen adequacy: Commen t Satis facto ry for evalu ation . Endoc ervic al and/o r squam ous metap lasti c cells (endo cervi sohail compo nent) are prese nt. Not Available [facility] ([facility]) [address] [place], [address], 07/11/2020 07:26:39 07/09/20 20 07/10/2020 pap, IG + HPV, cervi sohail clinician provided ICD10: Akin t Z01.4 19 Z11.5 1 Not Available [facility] ([facility]) [address] [place], [address], 07/11/2020 07:26:39 07/09/20 20 07/10/2020 pap, IG + HPV, cervi sohail performed by: Akin t Jerica Durham (ASCP ) Not Available [facility] ([facility]) [address] [place], [address], 07/11/2020 07:26:39 07/09/20 20 07/10/2020 pap, IG + HPV, cervi sohail . . Not Available [facility] ([facility]) [address] [place], [address], 07/11/2020 07:26:39 07/09/20 20 07/10/2020 pap, IG + HPV, cervi sohail note: Commen t The Pap smear is a scree tracy test desig aster to aid in the detec tion of yolanda ligna nt and malig nant condi tions of the uteri ne cervi x. It is not a diagn ostic proce dure and shoul d not be used as the sole means of detec ting cervi sohail cance r. Both false -posi tive and false -nega tive repor ts do occur . Not Available [facility] ([facility]) [address] [place], [address], 07/11/2020 07:26:39 07/09/20 20 07/10/2020 pap, IG + HPV, cervi sohail test methodology: Commen t This liqui d based ThinP rep(R ) pap test was abilioe aster with the use of an image guide connor cantrell. Not Available [facility] ([facility]) [address] [place], [address], 07/11/2020 07:26:39 07/09/20 20 07/11/2020 pap, IG + HPV, cervi sohail HPV aptima Negati ve negati ve This nucle ic acid ampli ficat ion test detec ts fourt een high- risk HPV types (16,1 8,31, 33,35 ,39,4 5,51, 52,56 ,58,5 9,66, 68) witho ut diffe renti ation . Not Available [facility] ([facility]) [address] [place], [address], 07/11/2020 07:26:39 07/09/2007/11/2020 bacte rial vagin osis panel , vagin al trich vag by LUIZA Negati ve negati ve Not Available [facility] ([facility]) [address] [place], [address], 07/12/2020 10:37:20 07/09/20 20 07/11/2020 bacte rial vagin osis panel , vagin al chlamydia trachomatis, LUIZA Negati ve negati ve Not Available [facility] ([facility]) [address] [place], [address], 07/12/2020 10:37:20 07/09/20 20 07/11/2020 bacte rial vagin osis panel , vagin al neisseria gonorrhoeae, LUIZA Negati ve negati ve Not Available [facility] ([facility]) [address] [place], [address], 07/12/2020 10:37:20 07/09/20 20 07/11/2020 bacte rial vagin osis panel , vagin al hsv 1 LUIZA Negati ve negati ve Not Available [facility] ([facility]) [address] [place], [address], 07/12/2020 10:37:20 07/09/20 20 07/11/2020 bacte rial vagin osis panel , vagin al hsv 2 LUIZA Negati ve negati ve Not Available [facility] ([facility]) [address] [place], [address], 07/12/2020 10:37:20 07/09/20 20 07/12/2020 bacte rial vagin osis panel , vagin al atopobium vaginae Low - 0 score Not Available [facility] ([facility]) [address] [place], [address], 07/12/2020 10:37:20 07/09/20 20 07/12/2020 bacte rial vagin osis panel , vagin al bvab 2 Low - 0 score Not Available [facility] ([facility]) [address] [place], [address], 07/12/2020 10:37:20 07/09/20 20 07/12/2020 bacte rial vagin osis panel , vagin al megasphaera 1 Low - 0 score Calcu late total score by andrey wiggins the 3 indiv idual bacte rial vagin osis (BV) marke r score s toget her. Total score is inter prete d as follo ws: Total score 0-1: Indic ates the absen ce of BV. Total score 2: Indet ermin ate for BV. Addit ional clini sohail data shoul d be evalu ated to estab french a diagn osis. Total score 3-6: Indic ates the prese nce of BV. This test was devel oped and its perfo rmanc e kaylyn cteri stics deter mined by [facility]. It has not been clear ed or appro moe by the Food and Drug Admin istra tion. The FDA has deter mined that such clear ance or appro valentin is not neces jina. Not Available [facility] ([facility]) [address] [place], [address], 07/12/2020 10:37:20 07/09/20 20 07/12/2020 bacte rial vagin osis panel , vagin al jens albicans, LUIZA Negati ve negati ve Not Available [facility] ([facility]) [address] [place], [address], 07/12/2020 10:37:20 07/09/20 20 07/12/2020 bacte rial vagin osis panel , vagin al jens glabrata, LUIZA Positi ve negati ve abnormal Publi shed data demon strat e that up to 65% of Abida da glabr patel ident ified in cases of vagin al abida diasi s have decre ased susce ptibi lity to fluco nazol e. Not Available [facility] ([facility]) [address] [place], [address], 07/12/2020 10:37:20 07/09/20 20 07/11/2020 cultu re, vagin al/re ctal, strep tococ cus group B strep gp B LUIZA Negati ve negati ve Cente rs for Disea se Contr ol and Preve ntion (CDC) and Ameri can Congr ess of Obste trici ans and Gynec ologi sts (ACOG ) guide lines for preve ntion of perin atal group B strep tococ sohail (GBS) disea se speci fy co-co llect ion of a vagin al and recta l swab speci men to maxim ize sensi tivit y of GBS detec tion. Per the CDC and ACOG, swabb ing both the lower vagin a and rectu m subst antia lly incre ases the yield of detec tion danny red with sampl ing the vagin a alone . Penic illin G, ampic illin , or cefaz bhanu are indic ated for intra partu m proph ylaxi s of perin atal GBS colon izati on. Refle x susce ptibi lity testi ng shoul d be perfo rmed prior to use of clind amyci n only on GBS isola robert from penic illin -mar rgic women who are consi dered a high risk for anaph ylaxi s. Treat ment with vanco mycin witho ut addit ional testi ng is warra nted if resis tance to clind amyci n is noted . Not Available [facility] ([facility]) [address] [place], [address], 07/12/2020 10:37:21 12/04/19 21 12/05/2020 hepat itis panel (A+B+ C), acute , serum hep A Ab, IgM NEGATI VE negati ve Not Available [facility] ([facility]) [address] [place], [address], 12/05/2020 08:19:57 12/04/1912/05/2020 hepat itis panel (A+B+ C), acute , serum HBsAg screen NEGATI VE negati ve Not Available [facility] ([facility]) [address] [place], [address], 12/05/2020 08:19:57 12/04/1912/05/2020 hepat itis panel (A+B+ C), acute , serum hep B core Ab, IgM NEGATI VE negati ve Not Available [facility] ([facility]) [address] [place], [address], 12/05/2020 08:19:57 12/04/19 21 12/05/2020 hepat itis panel (A+B+ C), acute , serum hep C virus Ab <0.1 s/co_ ratio 0.0-0. 9 Negat tia: < 0.8 Indet ermin ate: 0.8 - 0.9 Posit tia: > 0.9 The [facility] recom mends that a posit tia HCV antib fran resul t be follo wed up with a HCV Nucle ic Acid Ampli ficat ion test (5507 13). Not Available [facility] ([facility]) [address] [facility], [place], [address], 12/05/2020 08:19:57 12/04/1912/05/2020 hepat itis B surfa ce Ab, quali tativ e, serum hep B surface Ab, qual NON REACTI VE Non React tia: Incon siste nt with immun ity, less than 10 mIU/m L React tia: Consi stent with immun ity, great er than 9.9 mIU/m L Not Available [facility] ([facility]) [address] [place], [address], 12/05/2020 08:19:58 12/04/1912/05/2020 RPR (rapi d plasm a reagi n), serum RPR NON REACTI VE non reacti ve Not Available [facility] ([facility]) [address] [place], [address], 12/05/2020 08:19:59 12/04/1912/05/2020 HIV 1+2 AB + HIV 1 p24 Ag, quali tativ e immun oassa y, serum HIV screen 4TH generation wrfx NON REACTI VE non reacti ve Not Available [facility] ([facility]) [address] [place], [address], 12/05/2020 08:20:00 12/04/1912/05/2020 HSV 2 IgG Ab, QN, IA, serum hsv 2 IgG, type spec <0.91 index 0.00-0 .90 Negat tia <0.91 Equiv ocal 0.91 - 1.09 Posit tia >1.09 Note: Negat tia indic ates no antib odies detec modesto to HSV-2 . Equiv ocal may sugge st early infec tion. If clini kim appro priat e, retes t at later date. Posit tia indic ates antib odies detec modesto to HSV-2 . Not Available [facility] ([facility]) [address] [facility], [place], [address], 12/05/2020 08:20:00 03/19/20 21 03/20/2021 HCG, intac t + beta subun it, quant , serum or plasm a HCG,beta subunit,qnt, serum <1 mIU/m L Femal e (Non- pregn ant) 0 - 5 (Post menop ausal ) 0 - 8 Femal e (Preg nant) Weeks of Gesta tion 3 6 - 71 4 10 - 750 5 217 - 2180 6 158 - 47809 7 6717 -2833 63 8 28898 -4390 71 9 96214 -5024 10 10 85237 -3786 77 12 91165 -8477 12 14 58666 - 51661 15 75126 - 94002 16 6296 - 07225 17 4934 - 47420 18 3517 - 61593 Marialuisa ECLIA metho dolog y Not Available [facility] ([facility]) [address] [place], [address], 03/20/2021 08:19:50 03/19/2003/20/2021 proge stero ne, serum progesterone 0.1 NG/mL Folli cular phase 0.1 - 0.9 Lutea l phase 1.8 - 23.9 Ovula tion phase 0.1 - 12.0 Pregn ant First trime ster 11.0 - 44.3 Secon d trime ster 25.4 - 83.3 Third trime ster 58.7 - 214.0 Postm enopa usal 0.0 - 0.1 Not Available [facility] ([facility]) [address] [place], [address], 03/20/2021 08:19:50 04/19/20 21 04/20/2021 HCG, intac t + beta subun it, quant , serum or plasm a HCG,beta subunit,qnt, serum 1095 mIU/m L Femal e (Non- pregn ant) 0 - 5 (Post menop ausal ) 0 - 8 Femal e (Preg nant) Weeks of Gesta tion 3 6 - 71 4 10 - 750 5 134 - 0831 6 441 - 18668 7 4424 -6088 63 8 16949 -4520 71 9 27606 -9115 10 10 89544 -0706 77 12 26294 -9131 12 14 30426 - 03784 15 82605 - 79875 16 6108 - 57961 17 6182 - 21240 18 4162 - 62236 Marialuisa ECLIA metho dolog y Not Available [facility] ([facility]) [address] [facility], [place], [address], 04/20/2021 08:16:31 04/19/20 21 04/20/2021 proge stero ne, serum progesterone 15.8 NG/mL Folli cular phase 0.1 - 0.9 Lutea l phase 1.8 - 23.9 Ovula tion phase 0.1 - 12.0 Pregn ant First trime ster 11.0 - 44.3 Secon d trime ster 25.4 - 83.3 Third trime ster 58.7 - 214.0 Postm enopa usal 0.0 - 0.1 Not Available [facility] ([facility]) [address] [facility], [place], [address], 04/20/2021 08:16:32 05/01/2005/02/2021 HCG, intac t + beta subun it, quant , serum or plasm a HCG,beta subunit,qnt, serum 534 mIU/m L Femal e (Non- pregn ant) 0 - 5 (Post menop ausal ) 0 - 8 Femal e (Preg nant) Weeks of Gesta tion 3 6 - 71 4 10 - 750 5 207 - 3849 6 212 - 59773 7 0003 -4888 63 8 50600 -3181 71 9 56384 -1937 10 10 08950 -1639 77 12 16249 -2106 12 14 10830 - 53300 15 30789 - 37235 16 9459 - 74803 17 2722 - 88142 18 2073 - 65574 Marialuisa ECLIA metho dolog y Not Available [facility] ([facility]) [address] [facility], [place], [address], 05/09/2021 20:08:21 05/01/20 21 05/09/2021 mthfr (meth ylene tetra hydro folat e reduc tase) mutat ion, blood /tiss ue mthfr, DNA analysis COMMEN T Resul t: A1298 C Singl e mutat ion (A129 8C) ident ified Inter preta tion: This indiv idual is heter ozygo us for the MTHFR A1298 C varia nt(on e copy) . The MTHFR C677T varia nt was not ident ified . This combi natio n of resul ts is not assoc iated with an incre ased risk of hyper homoc ystei nemia , venou s throm bosis , coron sylvester arter y disea se, or recur rent pregn afshan loss. Howev er, hyper homoc ystei nemia may also occur due to mutat ions in enzym es other than MTHFR that are invol moe in homoc ystei ne metab olism , or arise due to acqui red facto rs. In the evalu ation of vascu lar and obste tric risk, consi leandro measu ring fasti ng homoc ystei ne. Other risk facto rs may be detec modesto throu gh syste matic clini sohail labor atory darío sis. This test was devel oped and its perfo rmanc e kaylyn cteri stics deter mined by [facility]. It has not been clear ed or appro moe by the Food and Drug Admin istra tion. Refer ences : Fady K[facility]IS[facility], Edilson Q. Am J Epide miol 2000; 151(9 ):862 -877. Nidhi horner MM, Sonia mazariegos JA. Arch Patho l Lab Med 2007; 131(6 ):872 -884. Fross t P et al. Yanni Toshia 1995; 10(1) :111- 113. Andrew y SE et al. Toshia Med 2013; 15(2) :153- 156. Lockw olidya C et al. Obste t Gynec ol 2011; 118(3 ):730 -740. Mahendra e B et al. Eur J Epide miol 2013; 28(8) :621- 647. Negro valerio, PhD, [facility] Madysno baltazar, PhD, FAC W. Reyes New, PhD, FAC Clover sahu, PhD, FAC Russel Quinones, PhD, FAC Luis kellogg, PhD, FAC Not Available [facility] ([facility]) [address] [place], [address], 05/09/2021 20:08:22 05/01/20 21 05/02/2021 proge stero ne, serum progesterone 0.5 NG/mL Folli cular phase 0.1 - 0.9 Lutea l phase 1.8 - 23.9 Ovula tion phase 0.1 - 12.0 Pregn ant First trime ster 11.0 - 44.3 Secon d trime ster 25.4 - 83.3 Third trime ster 58.7 - 214.0 Postm enopa usal 0.0 - 0.1 Not Available [facility] ([facility]) [address] [place], [address], 05/09/2021 20:08:22 05/30/20 21 06/03/2021 NUSWA B VG+, HSV atopobium vaginae HIGH - 2 score abnormal Not Available [facility] ([facility]) [address] [place], [address], 06/04/2021 14:22:59 05/30/20 21 06/03/2021 NUSWA B VG+, HSV bvab 2 MODERA TE - 1 score Not Available [facility] ([facility]) [address] [place], [address], 06/04/2021 14:22:59 05/30/20 21 06/03/2021 NUSWA B VG+, HSV megasphaera 1 LOW - 0 score Calcu late total score by andrey wiggins the 3 indiv idual bacte rial vagin osis (BV) marke r score s toget her. Total score is inter prete d as follo ws: Total score 0-1: Indic ates the absen ce of BV. Total score 2: Indet ermin ate for BV. Addit ional clini sohail data shoul d be evalu ated to estab french a diagn osis. Total score 3-6: Indic ates the prese nce of BV. This test was devel oped and its perfo rmanc e kaylyn cteri stics deter mined by [facility]. It has not been clear ed or appro moe by the Food and Drug Admin istra tion. Not Available [facility] ([facility]) [address] [place], [address], 06/04/2021 14:22:59 05/30/20 21 06/03/2021 NUSWA B VG+, HSV jens albicans, LUIZA NEGATI VE negati ve Not Available [facility] ([facility]) [address] [place], [address], 06/04/2021 14:22:59 05/30/20 21 06/03/2021 NUSWA B VG+, HSV jens glabrata, LUIZA NEGATI VE negati ve Not Available [facility] ([facility]) [address] [place], [address], 06/04/2021 14:22:59 05/30/20 21 06/04/2021 NUSWA B VG+, HSV trich vag by LUIZA NEGATI VE negati ve Not Available [facility] ([facility]) [address] [place], [address], 06/04/2021 14:22:59 05/30/20 21 06/04/2021 NUSWA B VG+, HSV chlamydia trachomatis, LUIZA NEGATI VE negati ve Not Available [facility] ([facility]) [address] [facility], [place], [address], 06/04/2021 14:22:59 05/30/20 21 06/04/2021 NUSWA B VG+, HSV neisseria gonorrhoeae, LUIZA NEGATI VE negati ve Not Available [facility] ([facility]) [address] [facility], [place], [address], 06/04/2021 14:22:59 05/30/20 21 06/04/2021 NUSWA B VG+, HSV hsv 1 LUIZA NEGATI VE negati ve Not Available [facility] ([facility]) [address] [facility] [address], [place], [address], 06/04/2021 14:22:59 05/30/20 21 06/04/2021 NUSWA B VG+, HSV hsv 2 LUIZA NEGATI VE negati ve Not Available [facility] ([facility]) [address] [facility], [place], [address], 06/04/2021 14:22:59 05/30/20 21 05/30/2021 urina lysis , dipst ick Leukocytes Negati ve Not Available In-Office Order Internal Use Only DO Not Attach Compendium DO Not Attach Compendium, Do Not Delete/merge, 05/30/2021 15:07:59 05/30/20 21 05/30/2021 urina lysis , dipst ick Nitrite negati ve Not Available In-Office Order Internal Use Only DO Not Attach Compendium DO Not Attach Compendium, Do Not Delete/merge, 05/30/2021 15:07:59 05/30/20 21 05/30/2021 urina lysis , dipst ick Urobilinogen .2 Not Available In-Of fice Order Internal Use Only DO Not Attach Compendium DO Not Attach Compendium, Do Not Delete/merge, [id number] 05/30/2021 15:07:59 05/30/20 21 05/30/2021 urina lysis , dipst ick Protein Negati ve Not Available In-Office Order Internal Use Only DO Not Attach Compendium DO Not Attach Compendium, Do Not Delete/merge, [facility] 05/30/2021 15:07:59 05/30/20 21 05/30/2021 urina lysis , dipst ick pH 7.0 Not Available In-Office Order Internal Use Only DO Not Attach Compendium DO Not Attach Compendium, Do Not Delete/merge, [facility] 05/30/2021 15:07:59 05/30/20 21 05/30/2021 urina lysis , dipst ick Blood Modera te Not Available In-Office Order Internal Use Only DO Not Attach Compendium DO Not Attach Compendium, Do Not Delete/merge, [facility] 05/30/2021 15:07:59 05/30/20 21 05/30/2021 urina lysis , dipst ick Specific [place] 1.025 Not Available In-Off ice Order Internal Use Only DO Not Attach Compendium DO Not Attach Compendium, Do Not Delete/merge, [facility] 05/30/2021 15:07:59 05/30/20 21 05/30/2021 urina lysis , dipst ick Ketone Negati ve Not Available In-Office Order Internal Use Only DO Not Attach Compendium DO Not Attach Compendium, Do Not Delete/merge, [facility] 05/30/2021 15:07:59 05/30/20 21 05/30/2021 urina lysis , dipst ick Bilirubin Negati ve Not Available In-Office Order Internal Use Only DO Not Attach Compendium DO Not Attach Compendium, Do Not Delete/merge, [facility] 05/30/2021 15:07:59 05/30/20 21 05/30/2021 urina lysis , dipst ick Glucose Negati ve Not Available In-Office Order Internal Use Only DO Not Attach Compendium DO Not Attach Compendium, Do Not Delete/merge, [facility] 05/30/2021 15:07:59 11/25/19 22 11/26/2021 HCG,B ETA SUBUN IT, QNT HCG,beta subunit,qnt, serum 133 mIU/m L Femal e (Non- pregn ant) 0 - 5 (Post menop ausal ) 0 - 8 Femal e (Preg nant) Weeks of Gesta tion 3 6 - 71 4 10 - 750 5 217 - 3738 6 698 - 14606 7 9347 -1635 63 8 22993 -1495 71 9 48773 -1814 10 10 63684 -6061 77 12 71555 -210 12 14 09783 - 88987 15 24974 - 88766 16 4739 - 01720 17 4324 - 42280 18 4298 - 31978 Marialuisa ECLIA metho dolog y Not Available [facility] ([facility]) [address] [place], [address], 11/26/2021 05:08:03 11/25/19 22 11/26/2021 PROGE STERO NE progesterone 21.1 NG/mL Folli cular phase 0.1 - 0.9 Lutea l phase 1.8 - 23.9 Ovula tion phase 0.1 - 12.0 Pregn ant First trime ster 11.0 - 44.3 Secon d trime ster 25.4 - 83.3 Third trime ster 58.7 - 214.0 Postm enopa usal 0.0 - 0.1 Not Available [facility] ([facility]) [address] [place], [address], 11/26/2021 05:08:04 12/03/19 22 12/04/2021 HCG,B ETA SUBUN IT, QNT HCG,beta subunit,qnt, serum 3620 mIU/m L Femal e (Non- pregn ant) 0 - 5 (Post menop ausal ) 0 - 8 Femal e (Preg nant) Weeks of Gesta tion 3 6 - 71 4 10 - 750 5 217 - 7138 6 158 - 11278 7 3697 -1635 63 8 13232 -1495 71 9 25761 -1514 10 10 51688 -1863 77 12 52497 12 14 13459 - 94691 15 71602 - 48617 16 3659 - 76152 17 1769 - 11129 18 6726 - 39567 Marialuisa ECLIA metho dolog y Not Available [facility] ([facility]) [address] [place], [address], 12/04/2021 09:11:57 12/03/19 22 12/04/2021 PROGE STERO NE progesterone 18.8 NG/mL Folli cular phase 0.1 - 0.9 Lutea l phase 1.8 - 23.9 Ovula tion phase 0.1 - 12.0 Pregn ant First trime ster 11.0 - 44.3 Secon d trime ster 25.4 - 83.3 Third trime ster 58.7 - 214.0 Postm enopa usal 0.0 - 0.1 Not Available [facility] ([facility]) [address] [facility] [address], [place], [address], 12/04/2021 09:11:58 Result Notes None recorded. 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 Procedures Surgical History Date Name Laterality Status Provider Name and Address Organization Details Recorded Time 05/27/20 20 Date of Last Pap Smear completed Linda Swift [facility] 07/09/2020 14:35:57 08/20/20 18 Depo Injection completed Linda Fajardo [facility] 08/20/2018 17:28:02 05/28/20 18 Depo Injection completed Linda Fajardo [facility] 05/28/2018 12:28:45 03/05/20 18 Depo Injection completed Linda Fajardo [facility] 03/05/2018 11:42:38 02/18/20 17 Generic Procedure completed Linda Fajardo [facility] 02/17/2017 17:08:12 11/23/19 04 Tonsillectomy completed Sasha Smith [facility] 02/20/2015 15:11:49 Imaging Results None recorded. Procedure Notes None recorded. Medical Equipment None Reported. Allergies No known drug allergies Medications Name Sig Start Date Stop Date Status Note LastModified by Organization Details LastModified Time multivita min tablet Take 1 tablet every day by oral route. 11/04 completed Not Available Not Available Not Available ciproflox acin 750 mg tablet TAKE 1 TABLET BY MOUTH TWICE DAILY 11/04 completed Not Available Not Available Not Available Tab-A-Vit e tablet 02/17 completed Not Available Not Available Not Available azithromy haseeb 250 mg tablet TAKE 2 TABLETS (500 MG) BY ORAL ROUTE ONCE DAILY FOR 1 DAY THEN 1 TABLET (250 MG) BY ORAL ROUTE ONCE DAILY FOR 4 DAYS 07/09 completed Not Available Not Available Not Available ibuprofen 800 mg tablet Take 1 tablet 3 times a day by oral route. 07/09 completed Not Available Not Available Not Available fluconazo le 150 mg tablet Take 1 tablet by oral route. 12/04 completed Not Available Not Available Not Available sulfameth oxazole 400 mg-trimet hoprim 80 mg tablet 11/03 completed Not Available Not Available Not Available valacyclo vir 1 gram tablet 11/04 completed Not Available Not Available Not Available prochlorp erazine maleate 5 mg tablet TAKE 1 TABLET BY MOUTH EVERY 6 TO 8 HOURS NEEDED FOR NAUSEA 11/04 completed Not Available Not Available Not Available metronida zole 0.75 % (37.5 mg/5 gram) vaginal gel Insert 1 applicat orful every day by vaginal route at bedtime for 5 days. 05/17 completed Not Available Not Available Not Available prednison e 20 mg tablet 11/03 completed Not Available Not Available Not Available ceftriaxo ne 250 mg solution for injection Take 250 mg by injectio n route for 1 day. 10/06 completed Not Available Not Available Not Available terconazo le 0.8 % vaginal cream Insert 1 applicat orful every day by vaginal route at bedtime for 3 days. 12/04 completed Not Available Not Available Not Available penicilli n V potassium 500 mg tablet Take 1 tablet twice a day by oral route for 10 days. 11/03 completed Not Available Not Available Not Available metronida zole 500 mg tablet Take 1 tablet twice a day by oral route for 7 days. 11/04 completed Not Available Not Available Not Available sulfameth oxazole 800 mg-trimet hoprim 160 mg tablet active Not Available Not Available Not Available Condoms-P rem Lubricate d Take 1 device as needed by miscell. route as needed. 10/06 completed Not Available Not Available Not Available acyclovir 800 mg tablet TAKE ONE TABLET BY MOUTH EVERY DAY FOR INFECTIO N active Not Available Not Available No t Available levothyro xine 25 mcg tablet TAKE 1 TABLET BY MOUTH EVERY DAY FOR THYROID active Not Available Not Available No t Available Vitamin tablet Take 1 tablet every day by oral route as directed for 90 days. 2021 active Not Available Not Available Not Avai lable cephalexi n 500 mg capsule 05/30 completed Not Available Not Available Not Available oseltamiv ir 75 mg capsule 11/03 completed Not Available Not Available Not Available nystatin 100,000 unit/gram topical cream APPLY TO THE AFFECTED AREA(S) BY TOPICAL ROUTE 2 TIMES PER DAY 11/03 completed Not Available Not Available Not Available clotrimaz ole-betam ethasone 1 %-0.05 % topical cream active Not Available Not Available Not Available progester one micronize d 200 mg capsule 05/30 completed Not Available Not Available Not Available hydroxyzi ne HCl 25 mg tablet 11/03 completed Not Available Not Available Not Available acyclovir 200 mg capsule active Not Available Not Available Not Available mupirocin 2 % topical ointment APPLY A SMALL AMOUNT TO THE AFFECTED AREA BY TOPICAL ROUTE 3 TIMES PER DAY X 10 DAYS active Not Available Not Available No t Available levofloxa haseeb 500 mg tablet 11/03 completed Not Available Not Available Not Available methylpre dnisolone 4 mg tablets in a dose pack TAKE BY MOUTH DIRECTED PER PACKAGE DIRECTIO NS WITH FOOD 05/30 completed Not Available Not Available Not Available albuterol sulfate HFA 90 mcg/actua tion aerosol inhaler INHALE 1 TO 2 PUFFS BY MOUTH EVERY 4 TO 6 HOURS NEEDED FOR SHORTNES S OF BREATH 05/30 completed Not Available Not Available Not Available norethind mayo (contrace ptive) 0.35 mg tablet 07/09 completed Not Available Not Available Not Available fluticaso ne propionat e 50 mcg/actua tion nasal spray,nick pension SHAKE LIQUID AND USE 1 SPRAY IN EACH NOSTRIL TWICE DAILY 05/30 completed Not Available Not Available Not Available medroxypr ogesteron e 150 mg/mL intramusc ular suspensio n Inject 150 mg every 3 months by intramus cular route. 11/03 completed Not Available Not Available Not Available loratadin e 10 mg tablet 11/03 completed Not Available Not Available Not Available amoxicill in 875 mg-potass ium clavulana te 125 mg tablet Take 1 tablet every 12 hours by oral route with meals for 5 days. 2021 active Not Available Not Available Not Avai lable escitalop mary 10 mg tablet Take 1 tablet every day by oral route in the morning. 05/30 completed Not Available Not Available Not Available Sprintec (28) 0.25 mg-0.035 mg tablet Take 1 tablet every day by oral route. 11/04 completed pt gets from mail in website Not Available Not Available Not Available RepHresh vaginal gel Insert 1 g as needed by vaginal route. 02/17 completed Not Available Not Available Not Available Oysco 500/D 500 mg-5 mcg (200 unit) tablet 11/03 completed Not Available Not Available Not Available Tri-Leges t Fe 1-20 (5)/1-30( 7)/1mg-35 mcg(9) tablet Take 1 tablet every day by oral route. 11/03 completed Not Available Not Available Not Available Calcium with Vitamin D 600 mg-10 mcg (400 unit) tablet Take 1 tablet twice a day by oral route. 11/04 completed Not Available Not Available Not Available levonorge strel 1.5 mg tablet 12/04 completed Not Available Not Available Not Available tranexami c acid 650 mg tablet Take 2 tablets 3 times a day by oral route for 5 days. 05/17 completed Not Available Not Available Not Available Lo Loestrin Fe 1 mg-10 mcg (24)/10 mcg (2) tablet Take 1 tablet every day by oral route. 11/03 completed Not Available Not Available Not Available calcium 600 mg (as carbonate )-vitamin D3 20 mcg (800 unit) tablet Take 1 tablet twice a day by oral route for 30 days. 11/03 completed Not Available Not Available Not Available Vitals Date Recorded Body height Body mass index (BMI) Body weight Provider Name and Address Organization Details Last Updated DateTime 12/04/2020 160.02 cm 26.6 kg/m2 57743.86 g Laura Sears MA [facility] 12/04/2020 14:40:53 Date Recorded Body height Systolic And Diastolic Provider Name and Address Organization Details Last Updated DateTime 05/01/2021 160.02 cm 122/68 mm[Hg] Virgie Pfeiffer MA [facility] 05/01/2021 12:26:04 Date Recorded Body height Body mass index (BMI) Body weight Systolic And Diastolic Provider Name and Address Organization Details Last Updated DateTime 05/30/2021 160.02 cm 26.2 kg/m2 18798.67 g 100/58 mm[Hg] Fatou Johnson MA [facility] 05/30/2021 15:09:34 Date Recorded Body height Body mass index (BMI) Body weight Systolic And Diastolic Provider Name and Address Organization Details Last Updated DateTime 07/09/2020 160.02 cm 27.5 kg/m2 25631.25 g 118/76 mm[Hg] Linda Swift MA [facility] 07/09/2020 14:35:09 Date Recorded Body height Body mass index (BMI) Body weight Heart rate Body temperature Oxygen saturation Oxygen saturation in Arterial blood by Pulse oximetry Systolic And Diastolic Provider Name and Address Organization Details Last Updated DateTime 1 160.02 cm 25.8 kg/m2 69046.6 9 g 82 /min 98.6 [degF] 100 % 100 % 112/62 mm[Hg] Linda Swift MA [facility] 1 11:58:01 Social History Question Answer Notes LastModified by Organizat ion Details LastModified Time Tobacco Smoking Status Never Smoker Sasha Smith [facility] 02/20/2015 15:11:49 Do You Have An Advance Directive? No Information not available 02/20/2015 Is Blood Transfusion Acceptable In An Emergency? Yes Information not available 02/20/2015 What Is Your Level Of Caffeine Consumption? None Information not available 02/20/2015 How Much Tobacco Do You Chew? None Information not available 05/08/2016 What Type Of Diet Are You Following? REGULAR Information not available 02/20/2015 Which Illicit Or Recreational Drugs Have You Used? None Information not available 05/17/2020 Education 10 Information no t available 02/20/2015 Live Alone Or With Others? With Others Information not available 02/20/2015 What Was The Date Of Your Most Recent Tobacco Screening? 11/04/2021 [email or web address] Information not available 11/04/2021 How Many Children Do You Have? 0 Information not available 02/20/2015 Performs Monthly Self-breast Exam? No Information no t available 03/25/2016 Do You Use Protection During Sex? Usually Information not available 03/25/2016 What Is Your Relationship Status? Single Information not available 05/08/2016 Seat Belts Used Routinely Yes Information not available 02/20/2015 Are You Sexually Active? Yes Information not available 03/25/2016 How Much Tobacco Do You Smoke? No Information not available 02/20/2015 General Stress Level Low Information not available 02/20/2015 Do You Use Sunscreen Routinely? No Information not available 02/20/2015 On What Date Was Tobacco Cessation Counseling Provided? 12/04/2020 Information not available 12/04/2020 How Many Years Have You Smoked Tobacco? 0 Information not available 05/17/2020 Sex: Unknown Functional Status Question Answer Note LastModified by Organizat ion Details LastModified Time What is your level of alcohol consumption? None Information not available 02/20/2015 Do you or have you ever used smokeless tobacco? Never used smokeless tobacco Information not available 05/17/2020 Are you currently employed? Yes Information not available 05/08/2016 What is your occupation? [employer] Information not available 05/08/2016 Do you or have you ever used e-cigarettes or vape? Never used electronic cigarettes Information not available 05/17/2020 What is your exercise level? Moderate Information not available 02/20/2015 Mental Status None recorded. Family History Relationship Description Onset Age of this Age Resolved Age Notes LastModified by Organization Details LastModified Time Maternal Grandmother Diabetes mellitus [email or web address] Not available 05/08 13:19:37 Maternal Grandmother Hypertensive disorder [email or web address] Not available 05/08 13:19:37 Medical History Condition Response Coronary Artery Disease N Kidney Cyst N Blood Diseases N Hyperthyroidism N Blood Transfusion N MRSA N Blood disorders N Emphysema N Blood Clots N COPD N Depression N Pneumonia N Premature N Peripheral Arterial Disease N Edema N TIA N Headaches/Migraines N Anxiety Disorder N Obesity N Infertility N Polyps N Acid Reflux (GERD) N Hematuria N Stroke N Neck Injury N Polio N Hospital Admission other than N Neurologic Disorder N Other Sleep Disorders N Rheumatoid Arthritis N Fibromyalgia N Abdominal Aortic Aneurysm Repair N Kidney Disease N Heart Conditions N Heart Disease/Heart Problems N Hospitalizations N Brain Tumors N Acne N Skin Problems N Eating Disorder N Meningitis N Constipation N Tuberculosis N Cerebral Palsy N Myocardial Infarction N Asthma N Substance Abuse N Peripheral Vascular Disease N Vertigo N Sleep Disorder N Cirrhosis N Pulmonary Embolism N Chicken Pox N Hematologic Disease N Flomax Use Past or Present N Anxiety/Depression N Thyroid Disease N Colon Cancer N Lung Disease N Glaucoma N Developmental or Behavioral Disorders N Bipolar N Pacemaker N Diverticulitis/Diverticulosis N Orthopedic Problems N Anesthesia Complications N Orthotics N Head Injury/Concussion N Congenital Anomalies N Haider Bite N Chronic Kidney Disease N Endometriosis N Liver Disease N Schizophrenia N Dialysis N Speech Delay N Chronic Obstructive Pulmonary Disease N Parkinson's Disease N Thyroid Problems N GI Problems N Developmental Delay N Anemia N Multiple Sclerosis N Immune System Disorder N Colon Polyps N Heart Attack (VT) N Diabetes N Cardiomyopathy N Blood Transfusions N Heart Problems/Murmur N Eye Trauma N Congestive Heart Failure (CHF) N Valvular Heart Disease N Hyperlipidemia N Double Vision N Abuse/Domestic Violence N Hepatitis B N Lupus N Epilepsy/Seizures N Reflux/GERD N Aneurysm N Heart Disease N Bronchitis N Pre-Eclampsia N Hypertension N Heart Failure N Other N Gout N High Blood Pressure N Atrial Fibrillation N Kidney Stones N Head Trauma/Injury N Congenital Heart Disease N Spine Problems N Gastrointestinal Disease N Lung Mass N Sinusitis N Obstructive Sleep Apnea N Muscle, Joint, or Bone Problems N Autoimmune disease N Vision or Eye Problems N Arthritis N Blood Clot N Cancer N Seasonal allergies N Leg or Foot Ulcers N Raynaud's Disease N Aortic Aneurysm N Arrhythmia N Headaches N Heart Problems N Ambloypia N Ear or Hearing Problems N Hyperparathyroidism N Migraines N Artificial Joints N Kidney or Bladder Problems N NSAID Use N Encephalitis N PTSD N Ulcers N Prostate Hypertrophy N Bleeding Disorder N AIDS/HIV N Urinary Tract Infection Y Back Problems N Allergies N Atrial Flutter N GERD/Reflux N Hepatitis N Autism Spectrum Disorder (ASD) N Breast Cancer N Hernia N Hypothyroidism N Breast Problem N Genitourinary Disease N Deep Vein Thrombosis N Varicose Veins N Cystic Fibrosis N Hearing Loss N Developmental Problems N Carotid Disease N Vitamin D Deficiency N ADHD N Bladder or Kidney Problems N High Cholesterol N [place] N Valvular Abnormalities N Psychiatric/Mental Health Condition N Organ Transplant N Foot Deformity N Allergies/Hayfever N Dyslipidemia N Hyponatremia N Diabetic Eye Disease N Osteoporosis/Osteopenia N Back Pain N Proteinuria N Mental Illness N Neurological Problems N Ovarian Cancer N Bedwetting N Seizures/Epilepsy N Kidney Failure N Ocular trauma N Diverticulitis N Dementia N Sleep Apnea N Mental Problems N Warfarin Management N Osteoporosis N Gynecological History Statement/Question Response Abnormal Pap N Flow Moderate Date of LMP 10/26/2021 On BCP's at Conception? N STIs/STDs N HPV Vaccine Yes Duration of Flow (days) 4 Age at Menarche 11 Current Control Method Condoms Age at First Child 21 Frequency of Cycle (Q days) 30 Sexually Active? Y Menses Monthly N Date of Last Pap Smear 05/27/2020 Sexual Problems? N LMP Definite Desired Control Method Condoms Obstetrics History GPAL:G 1 P 0 0 1 0 Type Value Multiple Births 0 Full Term 0 Induced 0 Spontaneous 1 Premature 0 Living 0 Ectopics 0 Total 1 Past Encounters Encounter ID Performer Location Encounter Start Date Encounter Closed Date Diagnosis/Indication Diagnosis SNOMED-CT Code Diagnosis ICD10 Code Diagnosis Note [id number] [facility] [address] [place] [address] [id number] 0 02/20/2015 14:43:35 02/20/2015 16:11:23 Contraception education [id number] Contraception care [id number] Jeremy Dupont MD [facility] ([facility]) [address] [place] [address] [id number] 0 08/07/2015 15:09:47 08/07/2015 17:56:35 Contraception education [id number] Contraception care [id number] Jeremy Dupont MD [facility] ([facility]) [address] [place] [address] [id number] 11/02/2015 09:44:00 11/02/2015 11:49:38 Contraception education 062019890 Z30.09 [id number] [facility] [address] [place] [address] [id number] 0 01/25/2016 09:48:14 01/25/2016 10:19:39 Uses depot contraception 977010463 Z30.8 [id number] [facility] [address] [place] [address] [id number] 0 03/25/2016 14:07:03 03/25/2016 17:48:08 Venereal disease screening 256561381 Z11.3 Uses depot contraception 893107465 Z30.8 [id number] MD John Bellamy ([employer] [facility]) [address] [place] [address] [id number] 0 04/18/2016 09:53:51 04/18/2016 13:28:04 Uses depot contraception 187385476 Z30.8 Family rivka nning surveillance 897791442 Z30.09 [id number] MD John Bellamy ([employer]) [address] [place] [address] [id number] 0 05/08/2016 10:55:53 05/08/2016 13:20:34 Family planning surveillance 759157559 Z30.09 Candidiasis of vagina 72 685320 B37.3 [id number] Isaías Wilder MD [facility] ([facility]) [address] [place] [address] [id number] 0 07/15/2016 15:17:34 07/16/2016 16:47:02 Uses depot contraception 996273449 Z30.42 [id number] [facility] [address] [place] [address] [id number] 0 10/03/2016 10:26:42 10/03/2016 15:13:09 Surveillance of contraception 221201071 Z30.40 [id number] [facility] [address] [place] [address] [id number] 0 12/26/2016 09:48:51 12/26/2016 15:00:48 Surveillance of contraception 806417428 Z30.40 [id number] [facility] [address] [place] [address] [id number] 0 02/17/2017 14:53:25 02/18/2017 16:12:28 At increased risk of sexually transmitted infection 596607892 Z20.2 Lesion of vulva 59526571 6 N90.9 Exposure t o sexually transmissible disorder 078157835 Z20.2 Family rivka nning surveillance 875723245 Z30.09 [id number] MD John Bellamy ([employer]) [address] [place] [address] [id number] 0 02/26/2017 15:12:49 03/02/2017 17:20:17 Genital herpes simplex 91933155 A60.9 Candidiasis of vagina 72 553994 B37.3 [id number] MD John Bellamy ([employer]) [address] [place] [address] [id number] 0 03/13/2017 10:56:40 03/13/2017 11:19:31 Uses depot contraception 391980603 Z30.8 [id number] Jeremy Dupont MD [facility] ([facility]) [address] [place] [address] [id number] 0 06/12/2017 10:56:06 06/12/2017 14:02:34 Uses depot contraception 091703953 Z30.8 [id number] MD John Bellamy ([employer]) [address] [place] [address] [id number] 0 08/28/2017 10:35:46 08/28/2017 17:31:12 Family planning surveillance 289294106 Z30.09 [id number] [facility] [address] [place] [address] [id number] 0 12/04/2017 11:18:50 12/04/2017 12:32:49 Family planning surveillance 731963404 Z30.09 [id number] [facility] [address] [place] [address] [id number] 0 03/05/2018 11:08:37 03/08/2018 18:11:15 Family planning surveillance 533650584 Z30.09 [id number] [facility] [address] [place] [address] [id number] 0 03/10/2018 10:54:17 03/10/2018 12:17:13 Gynecologic examination 90214319 Z01.419 Exposure t o sexually transmissible disorder 545185155 Z20.2 Z11.3 Family rivka nning surveillance 717745710 Z30.09 [id number] MD John Bellamy ([employer]) [address] [place] [address] [id number] 0 05/28/2018 10:35:29 05/31/2018 14:44:32 Family planning surveillance 353522849 Z30.09 [id number] MD John Virgen ([employer]) [address] [place] [address] [id number] 0 08/20/2018 16:41:46 08/20/2018 17:04:12 Family planning surveillance 666316450 Z30.09 [id number] MD John Bellamy ([employer]) [address] [place] [address] [id number] 0 10/06/2018 10:22:12 10/06/2018 13:04:06 Exposure to sexually transmissible disorder 989865102 Z20.2 Family rivka nning surveillance 054150165 Z30.09 Depressive disorder 3548 9007 F32.9 [id number] MD John Bellamy ([employer]) [address] [place] [address] [id number] 0 02/15/2019 12:12:59 02/17/2019 11:54:59 Folliculitis 07745219 L73.9 Family rivka nning surveillance 714937383 Z30.09 [id number] [facility] [address] [place] [address] [id number] 0 05/16/2019 10:54:27 05/16/2019 15:11:16 Exposure to sexually transmissible disorder 861292466 Z20.2 Candidiasis of vagina 72 743259 B37.3 Family rivka nning surveillance 859100251 Z30.09 [id number] MD John Bellamy ([employer]) [address] [place] [address] [id number] 0 06/07/2019 15:34:38 06/09/2019 11:40:51 Group B Streptococcus carrier [id number] 103 Z22.330 Candidiasis of vagina 72 268734 B37.3 Exposure t o sexually transmissible disorder 741036763 Z20.2 Family rivka nning surveillance 597043581 Z30.09 [id number] MD John Bellamy ([employer]) [address] [place] [address] [id number] 0 06/27/2019 11:17:37 06/28/2019 14:45:32 Group B Streptococcus carrier [id number] 103 Z22.330 Genital he rpes simplex 96689777 A60.9 Currently taking acyclovir. Will follow-up in 2 months for retesting. Family rivka nning surveillance 799139557 Z30.09 [id number] JOSE LICEA ([facility]) [address] [place] [address] [id number] 0 11/03/2019 15:25:02 11/04/2019 11:09:56 Family planning surveillance 434007142 Z30.09 Pt on OCPs that she gets online from [employer]. She doesn't remember the name of them. Venereal d isease screening 018941404 Z11.3 Bacterial vaginosis 4197 82454 N76.0 Take antibiotic s as prescribed , avoid alcohol while taking. Use mild, unscented soaps or plain water when washing, avoid any products with fragrance. Wear cotton underwear and loose fitting clothing. Wash only once per day, do not overscrub or douche. [id number] MD Jonh Bellamy ([employer]) [address] [place] [address] [id number] 0 05/16/2020 11:11:31 05/16/2020 17:45:32 [id number] MD John Bellamy ([employer]) [address] [place] [address] [id number] 0 05/17/2020 14:51:25 05/18/2020 13:37:33 Exposure to sexually transmissible disorder 535958098 Z20.2 Family [facility] nning surveillance 670041267 Z30.09 [id number] MD John Bellamy ([employer]) [address] [place] [address] [id number] 0 07/09/2020 14:23:01 07/10/2020 10:49:47 Gynecologic examination 19063275 Z01.419 Z11.51 Genital he rpes simplex 25496357 A60.9 Currently taking acyclovir. Will follow-up in 2 months for retesting. Family [facility] nning surveillance 897569271 Z30.09 Exposure t o sexually transmissible disorder 492438532 Z20.2 [id number] MD John Bellamy ([employer]) [address] [place] [address] [id number] 0 12/04/2020 10:35:18 12/05/2020 12:11:48 Exposure to sexually transmissible disorder 661600150 Z20.2 Z11.3 Family rivka nning surveillance 943563535 Z30.09 Genital he rpes simplex 63332223 A60.9 Currently taking acyclovir. Will follow-up in 2 months for retesting. [id number] MD John Bellamy ([facility]) [address] [place] [address] [id number] 0 05/01/2021 12:16:16 05/06/2021 07:09:00 Missed miscarriage 59476149 O02.1 Declining HCGs from 04/19/21 of 1095 and 04/30/21 of 600. Consistent with diagnosis of missed . Will draw blood today. Depressive disorder 3548 9007 F32.9 Start escitalopr am and referred for counseling [id number] JOSE LICEA ([facility]) [address] [place] [address] [id number] 0 05/30/2021 14:43:41 06/06/2021 09:28:59 Complete miscarriage 591420571 O03.9 -Pt miscarried on 05/01 with bleeding/c ramping for 2 weeks-TVUS in ED confirming complete miscarriag e, will obtain records-Ne gative urine test today-[facility] [place] on Spr[facility] 05/07 (gets from online). Likely cause of recurrent bleeding-A dvised if bleeding does not stop or worsens to return to the clinic or go to the ED-Miscarr iage care instructio ns provided Acute vaginitis 27236554 N76.0 -Strong odor noted from vagina x1 week-Mild dysuria x1 week, UA unremarkab le-nuswab done today, will notify pt of results and treat appropriat nohemy Major depr essive disorder 133566520 F32.9 -Prescribe d Lexapro 05/[address] Dupont but has not started taking-Cou nseling referral put in today, encouraged pt to follow up-Will continue to monitor [id number] JOSE SOTO (Adult Med) [address] [place] [address] [id number] 0 11/04/2021 11:44:01 11/05/2021 20:29:35 Genital herpes simplex 11668481 A60.9 She has a history of genital herpes, without medication will get an outbreak fairly regularly (one every couple months) but with the daily preventati ve medication , she rarely gets an outbreak.N o SE from the medication .- medication refilled today Adult heal th examination 125188865 Z00.00 21 year old female with a history herpes simplex presents today to establish OBGYN and IM care.She is overall healthy, has no acute complaints today.Jacob es fever, chills, nausea, vomiting, headaches, chest pain, SOB, abdominal pain, diarrhea, constipati on, or dysuria.La st pap smear was 06/2020- encouraged her to f/u as needed for IM care Complete miscarriage 156 582244 O03.9 She had a miscarriag e 04/2021 this year at 6 weeks.She was following with Dr. Dupont for OBGYN care. 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 positive for MTHFR gene after miscarriag e.She is no longer using control, said she isn't necessaril y trying to conceive but also would not be upset if she was to become .- encouraged her to start taking a pre- vitamin daily to help her body prepare for possible - f/u as needed for testing and can help find new OBGYN if she were to become Health Concerns Section Related Observation LastModified by Organization Detai ls LastModified Time None Recorded Concern Status LastModified by Organization Details LastModified Time None Recorded Advance Directives Directive N: Payers Insurance Date Sequence Insurance Name Policy Number Policy Sidhu Covered Member ID Sidhu Member ID Guarantor Name 02/15/2019 1 [facility] (MEDICAID HMO) Thao Stanforda [id number] Tyler Bowling 11/01/2021 1 [facility] [id number] Tationa Bowling [id number] Tyler Bowling 11/03/2019 1 [facility] - DOS PRIOR TO 2021 (MEDICAID REPLACEMENT - HMO) Tationa Bowling [id number] Tyler Bowling 12/04/2020 SLIDING FEE SCHEDULE - DISCOUNT Tyler Bowling 12/04/2020 2 *SELF PAY* Iv an Bowling 03/25/2016 1 [facility] (MEDICAID HMO) Brittoniona Bowling [id number] Tyler Bowling 10/03/2016 1 MEDICAID-[place]: [facility] Thao Bowling [id number] Tyler Bowling 10/03/2016 1 [facility] (MEDICAID HMO) Thao Bowling [id number] Tyler Stanforda 12/04/2017 1 *SELF PAY* Iv linnette Bowling 02/26/2017 SLIDING FEE SCHEDULE - DISCOUNT Tyler Bowling 02/26/2017 SLIDING FEE SCHEDULE - DISCOUNT Tyler Bowling 12/04/2017 SLIDING FEE SCHEDULE - DISCOUNT Tyler Bowling 05/28/2018 1 MEDICAID-[place]: [facility] Thao Bowling [id number] Tyler Bowling Notes Date Note Type Note Provider Name and Address Organization Details Recorded Time 07/09/2020 text/html Annual GYNReport ed bypatient.Menstrual cycle:Normal menses Urinary symptoms:No hematuria; No incontinence Vulva:No genital lesion Vagina:Normal vaginal discharge Breast:No breast pain; No breast lump; No nipple discharge Sexual complaints:No sexual complaints; No pain during intercourse; Normal libido Menopausal Symptoms:No menopausal symptoms; Normal vaginal lubrication Psychological symptoms:No depression; No anxiety; No PMDD 20yo with a history of HSV, GBS, BV, recurrent UTIs, and folliculitis here for annual medical representative exam. DAMIAN Cruz 07/09/2020 21:24:10 12/04/2020 text/html problems-FemaleReporte d bypatient.Location:vag zina Duration:constant Context:sexually active Associated Symptoms:no flank pain; no jaundice; no blood in the urine; no pain during urination; no urgency;white vaginal discharge 20 year old with a history of genital herpes who presents to the clinic for evaluation of discharge which has been going on for over one week. She describes the discharge as curdy. She denies any associated itching. DAMIAN Cruz 12/04/2020 14:57:55 05/01/2021 text/html First Trimester BleedingReported bypatient.Associated Symptoms:no cramping; no pelvic pain; no back pain; no dizziness 20 year old with a history of genital herpes who presents to clinic for follow up ER with SAB. Declining HCGs from 04/19/21 of 1095 and 04/30/21 of 600. Consistent with diagnosis of missed . Jeremy Dupont null, [place] - [facility] 05/01/2021 16:57:28 05/30/2021 text/html 21 y/o female presents to the clinic for vaginal bleeding x1 week. Pt notes she had a miscarriage in the beginning of April. She bled for about 2 weeks and the bleeding stopped. She thinks she passed products of conception during this time. She was told by Dr. Dupont that she was able to start control pills at this time. She orders her pills from an online forum. Last week, she started bleeding again. She did present to ED and had TVUS confirming complete miscarriage. She has been using tampons and there has been a rotten odor coming from them when she takes them out. She is still having some mild abdominal cramping. Also complains of some symptoms of depression. She has struggled with depression for years. Previously was on medication as a teenager. She does not remember what kind, but when she was on them they worsened her symptoms. At her last visit with Dr. Dupont she was prescribed Lexapro. She has not taken it as she is worried this will worsen her symptoms. Has been trying to get in touch with the counselor here at [facility], but can not get a call back. She has also tried a counselor at work without ability to get an appointment. Denies SI/HI. JOSE LICEA Attn: Accounting,[address] [place], [address], [facility] 06/03/2021 09:46:33 11/04/2021 text/html 21 year old kristyn lindsey with a history herpes simplex presents today to establish OBGYN and IM care. She is overall healthy, has no acute complaints today. She has a history of genital herpes, without medication will get an outbreak fairly regularly (one every couple months) but with the daily preventative medication, she rarely gets an outbreak. No SE from the medication. Last pap smear on 06/2020 was normal. She had a miscarriage 04/2021 this year at 6 weeks. She was following with Dr. Dupont for OBGYN care. She tested positive for MTHFR gene after miscarriage. She is no longer using control, said she isn't necessarily trying to conceive but also would not be upset if she was to become . Denies fever, chills, nausea, vomiting, headaches, chest pain, SOB, abdominal pain, diarrhea, constipation, or dysuria. JOSE SOTO Attn: Accounting,[address] [facility], [place], [address], [place] - [facility] 11/04/2021 12:20:51 OBGyn Episode Ob Episode Information Episode Created Date Number of Fetuses Patient Bloodtype Patient rh Status Prepregnancy Weight lbs Domestic Partner Domestic Partner Phone Father Name Coal Hauler Operator Status 05/30/20 21 1 CLOSED Fetus Data First Name Last Name Admitted to NICU Weight (g) Sex Living Outcome Pediatric Complications Fetus ID Race Codes Race Delivery Type , Spontane ous [id number] Sergio Calculation Initial Sergio Date Initial Exam Date Initial Exam Provider Initial Ultrasound Date Last Menstrual Period Date Ultra Sound Weeks Gestation 0 Eighteen To Twenty Week Sergio Update Ultra Sound Date Fundal Height At Umbil Quickening Date Ultra Sound Latest Weeks Gestation Final Sergio Confirmed By Final Sergio Confirmed Date Final Sergio Date Ultra Sound Latest Days Gestation 0 0 Menstrual History Last Menstrual Date Menses Monthly On Bcp Conception Prior Menses Frequency Hcg Plus Date Menarche Onset Age Delivery Information Delivery Date Delivery Type Labor Anesthesia Weeks Gestation Incision Type Labor Labor Length Hrs Delivered By Post Complications Tubal Sterilization Discharge Date Comments 1 Discharge Information Feeding Method Contraceptive Method Maternal HG B and HCT Levels
--- OUTSIDE RECORDS SUMMARY | 2025-06-06 22:37 | XMS_ITS | Clinical Summary ---
Author Organization [facility] [employer] CRARY Address [address] [employer] [address] [address] Care Team Providers Care Snagger Name Role Phone Unavailable Primary Care Provider Unavailabl e Allergies No known active allergies Medications PNV no.133/ferrous fum/folic ( ORAL) Take by mouth. Activ e IRON ORAL Take by mouth. Activ e medroxyPROGEST ERone (DEPO-PROVERA) 150 mg/mL Suspension Inject 1 mL (150 mg) by intramuscular injection every 90 days. 1 mL Active Active Problems Problem Noted Date Diagnosed Date Hypothyroidism 06/09/2022 Heterozygous for MTHFR gene mutation 05/12/2021 Genital herpes simplex 06/26/2020 Resolved Problems Problem Noted Date Diagnosed Date Resolved Date Gestational thrombocytopenia without hemorrhage in third trimester 07/23/2023 08/25/2023 Vaginal discharge during pre gnancy in third trimester 06/17/2023 08/25/2023 MBC: ALMA ROSA MCALLISTER 07/09/2022 08/26/2022 Supervision of normal first , antepartum 05/12/2022 08/05/2022 Encounters Date Type Department Care Team Description 06/06/2025 Results Follow-Up [facility] [employer] [place] [address] [place] [address] Nanda Love MD TSH, LIPID PANEL, COMPREHENSIVE METABOLIC PANEL, CBC WITH DIFFERENTIAL 06/05/2025 10:00 AM CDT Office Visit [facility] [employer] [place] [address] [place] [address] Screening for condition from Last 3 Months Immunizations Immunization Administration Dates Next Due (ADACEL/BOOSTRIX)(10 YR UP) TDAP VACCINE, 0.5ML, IM 06/25/2023,05/05/2022 (PFIZER)(12 YR UP) COVID-19 VACCINE - EMERGENCY USE AUTHORIZATION, MRNA, [id number](PF) 30 MCG/0.3 ML IM SUSP 04/11/2022,09/23/2021,08/23/2021 Family History Medical History Relation Name Comments No Known Problems Brother 1 No Known Problems Brother 2 No Known Problems Brother 3 No Known Problems Brother 4 No Known Problems Brother 5 No Known Problems Father Unknown Maternal Grandfather Unknown Maternal Grandmother No Known Problems Mother Unknown Paternal Grandfather Unknown Paternal Grandmother No Known Problems Sister 1 No Known Problems Sister 2 No Known Problems Son Breast Cancer Neg Hx Colon Cancer Neg Hx Ovarian Cancer Neg Hx Preeclampsia Neg Hx Relation Name Status Comments Brother 1 Alive Brother 2 Alive Brother 3 Alive Brother 4 Alive Brother 5 Alive Father Alive Maternal Grandfather Maternal Grandmother Mother Alive Paternal Grandfather Other Paternal Grandmother Other Sister 1 Alive Sister 2 Alive Son Alive Social History Tobacco Use Types Packs/Day Years Used Date Smoking Tobacco: Never Smokeless Tobacco: Never Tobacco Cessation:Counseling Given: Not Answered Alcohol Use Standard Drinks/Week Comments Not Currently [...] Pressure 118/76 06/05/2025 10:11 AM CDT Pulse 91 09/02/2023 8:09 AM CDT Temperature 36.7 C (98 F) 09/02/2023 8:09 AM CDT Respiratory Rate 16 09/02/2023 8:09 AM CDT Oxygen Saturation 88% 07/16/2022 8:55 PM CDT Inhaled Oxygen Concentration - - Weight 71.2 kg (157 lb) 06/05/2025 10:11 AM CDT Height 154.9 cm (5' 1) 06/05/2025 10:11 AM CDT Body Mass Index 29.66 06/05/2025 10:11 AM CDT Plan of Treatment Health Maintenance Due Date Last Done Comments HPV VACCINES (1 - 3-dose series) 2014 HEPATITIS B VACCINES (1 of 3 - 19+ 3-dose series) 2018 HPV/Cotest (21-29) 2020 COVID-19 Vaccine (4 - 2023-2 5 season) 2024 04/11/2022, 09/23/2021, 08/23/2021 Preventative Visit- Commercial 11/23/2024 12/23/2021 , 07/09/2020 CERVICAL CANCER SCREENING 12/23/2024 PAP SMEAR 12/23/2024 12/23/2021 INFLUENZA VACCINE (#1) 2025 10/16/2021 DTAP/TDAP/TD VACCINES (3 - T d or Tdap) 06/25/2033 06/25/2023, 05/05/2022 CHLAMYDIA SCREENING (ANNUAL) 11-24 YEARS Discontinued 04/01/2023, 12/23/2021 Procedures Procedure Name Priority Date/Time Associated Diagnosis Comments CBC WITH DIFFERENTIAL Routine 06/05/2025 9:44 AM CDT Screening for condition COMPREHENSIVE METABOLIC PANEL Routine 06/05/2025 9:44 AM CDT Screening for condition LIPID PANEL Routine 06/05/2025 9:44 AM CDT Screening for condition TSH Routine 06/05/2025 9:44 AM CDT Screening for condition GC/CHLAMYDIA, UROGENITAL Routine 04/01/2023 12:36 PM CDT from Last 3 Months or Most Recently Relevant to Health Maintenance Results * (ABNORMAL) CBC WITH DIFFERENTIAL (06/05/2025 9:44 AM CDT) WBC 6.1 3.8 - 10.8 Thousand/ uL [facility] RBC 4.72 3.80 - 5.10 Million/u L [facility] HEMOGLOBIN 13.6 11.7 - 15.5 g/dL [facility] HEMATOCRIT 42.6 35.0 - 45.0 % [facility] MCV 90.3 80.0 - 100.0 fL [facility] MCH 28.8 27.0 - 33.0 pg [facility] MCHC 31.9(L) 32.0 - 36.0 g/dL [facility] Comment: For adults, a slight decrease in the calculated MCHC value (in the range of 30 to 32 g/dL) is most likely not clinically significant; however, it should be interpreted with caution in correlation with other red cell parameters and the patient's clinical condition. RDW 13.0 11.0 - 15.0 % [facility] PLATELETS 252 140 - 400 Thousand/ uL [facility] MPV 9.6 7.5 - 12.5 fL [facility] NEUTROPHIL ABSOLUTE 2,983 1,500 - 7,800 cells/uL [facility] LYMPHOCYTE ABSOLUTE 2,513 850 - 3,900 cells/uL [facility] MONOCYTE ABSOLUTE 390 200 - 950 cells/uL [facility] EOSINOPHIL ABSOLUTE 171 15 - 500 cells/uL [facility] BASOPHILS ABSOLUTE 43 0 - 200 cells/uL [facility] NEUTROPHIL 48.9 % [facility] LYMPHOCYTES 41.2 % [facility] MONOCYTE 6.4 % [facility] EOSINOPHILS 2.8 % [facility] BASOPHILS 0.7 % [facility] Comment: Test Performed at: [facility] [place] [address] [place] [address] Bisi Graham Blood 06/05/2025 9:44 AM CDT 06/06/2025 2:01 AM CDT us Nanda Love MD HEMATOLOGY ORDERABLES Final Re sult [facility] [phone] [facility] [place] [address] [address] * TSH (06/05/2025 9:44 AM CDT) TSH 3.05 mIU/L [facility] Comment: Reference Range > or = 20 Years 0.40-4.50 Ranges First trimester 0.26-2.66 Second trimester 0.55-2.73 Third trimester 0.43-2.91 Test Performed at: [facility] [address] [place] [address] Bisi Graham Blood 06/05/2025 9:44 AM CDT 06/06/2025 2:01 AM CDT us Nanda Love MD CHEMISTRY ORDERABLES Final Res ult [facility] [phone] [facility] [address] [place] [address] * (ABNORMAL) LIPID PANEL (06/05/2025 9:44 AM CDT) Pathologist [facility] CHOLESTEROL 139 <200 mg/dL [facility] HDL 39(L) > OR = 50 mg/dL [facility] TRIGLYCERIDE 178(H) <150 mg/dL [facility] LDL CALCULATED 73 mg/dL (calc) [facility] Comment: Reference range: <100 Desirable range <100 mg/dL for primary prevention; <70 mg/dL for patients with CHD or diabetic patients with > or = 2 CHD risk factors. LDL-C is now calculated using the Hernandez calculation, which is a validated novel method providing better accuracy than the Friedewald equation in the estimation of LDL-C. Mp BRANCH et al. ELAINA. 2013;310(19): 1092-3097 (http://education.uTest.Voxli/faq/MYL166) CHOL/HDL RATIO 3.6 <5.0 (calc) [facility] NON-HDL CHOLESTEROL 100 <130 mg/dL (calc) [facility] Comment: For patients with diabetes plus 1 major ASCVD risk factor, treating to a non-HDL-C goal of <100 mg/dL (LDL-C of <70 mg/dL) is considered a therapeutic option. Test [facility]formed [facility] [address] [place] [address] Bisi Graham Blood 06/05/2025 9:44 AM CDT 06/06/2025 2:01 AM CDT us Nanda Love MD CHEMISTRY ORDERABLES Final Res ult [facility] [phone] [facility] [place] [address] [address] [place] [phone] * COMPREHENSIVE METABOLIC PANEL (06/05/2025 9:44 AM CDT) GLUCOSE 87 65 - 99 mg/dL [facility] Comment: Fasting reference interval BUN 10 7 - 25 mg[facility] CREATININE 0.58 0.50 - 0.96 mg/dL [facility] GFR 128 > OR = 60 mL/min/1. 73m2 [facility] BUN/CREAT RATIO SEE NOTE: 6 - 22 (calc) [facility] Comment: Not Reported: BUN and Creatinine are within reference range. SODIUM 137 135 - 146 mmol/L [facility] POTASSIUM 4.1 3.5 - 5.3 mmol/L [facility] CHLORIDE 103 98 - 110 mmol/L [facility] CO2 26 20 - 32 mmol/L [facility] CALCIUM 9.2 8.6 - 10.2 mg/dL [facility] TOTAL PROTEIN 7.5 6.1 - 8.1 g/dL [facility] ALBUMIN 4.3 3.6 - 5.1 g/dL [facility] GLOBULIN 3.2 1.9 - 3.7 g/dL (calc) [facility] ALBUMIN/GLOBULIN RATIO 1.3 1.0 - 2.5 (calc) [facility] BILIRUBIN TOTAL 0.5 0.2 - 1.2 mg/dL [facility] ALKALINE PHOSPHATASE 83 31 - 125 U/L [facility] AST 14 10 - 30 U/L [facility] ALT 10 6 - 29 U/L [facility] Comment: Test Performed at: [place] [address] [place] [address] Bisi Graham Blood 06/05/2025 9:44 AM CDT 06/06/2025 2:01 AM CDT Nanda Love MD CHEMISTRY ORDERABLES Final Res ult Performing Organization Address City/[facility]/ZIP Code Phone Number [facility] [phone] [place] [address] [place] [address] * GC/CHLAMYDIA, UROGENITAL (04/01/2023 12:36 PM CDT) C TRAC RNA NOT DETECTED NOT DETECTED [facility] N.GONORRHOEAE RNA, TMA NOT DETECTED NOT DETECTED [facility] COMMENT INFECTIOUS DISEASE [facility] Comment: The analytical performance characteristics of this assay, when used to test SurePath(TM) specimens have been determined by [facility]. The modifications have not been cleared or approved by the FDA. This assay has been validated pursuant to the CLIA regulations and is used for clinical purposes. For additional information, please refer to https://education.Parakey/faq/YGW608 (This link is being provided for information/ educational purposes only.) Test Performed at: [facility] [address] [place] [address] Bisi Graham MD 04/01/2023 12:3 6 PM CDT 04/01/2023 12:37 PM CDT Rashmi Smiley CNM MICROBIOLOGY - GENERAL ORD ERABLES Final Result [facility] [phone] [facility] [address] [facility] [place] [address] from Last 3 Months or Most Recently Relevant to Health Maintenance Insurance [employer]LEGI[employer] OPEN ACCESS RX [employer] OPEN ACCESS Advance Directives For more information, please contact: [phone] * Full Code (Latest Code Status on File) Date Activated Date Inactivated Comments 09/01/2023 11:52 AM 09/02/2023 2:16 PM * Full Code Date Activated Date Inactivated Comments 09/01/2023 10:02 AM 09/01/2023 11:52 AM * Full Code Date Activated Date Inactivated Comments 06/17/2023 4:42 AM 06/17/2023 8:40 AM * Full Code Date Activated Date Inactivated Comments 07/17/2022 1:42 AM 07/18/2022 1:40 PM * Full Code Date Activated Date Inactivated Comments 07/15/2022 9:30 PM 07/17/2022 1:42 AM
--- OUTSIDE RECORDS SUMMARY | 2025-06-06 22:37 | XMS_ITS | Encounter Summary ---
Author Organization [facility] Address [address] [place] [address] Care Team Providers Care Basket Braider Name Role Phone Unavailable Primary Care Provider Unavailabl e Encounter Details Date Type Department Care Team (Late st Contact Info) Description 08/18/2023 Lab Requisition [facility] Services S Formerly [facility] [address] [place] [address] Rena Edgar, [facility] [address] [place] [address] Social History Tobacco Use Types Packs/Day Years Used Date Smoking Tobacco: Never Smokeless Tobacco: Never Alcohol Use Standard Drinks/Week Comments Not Currently 0 (1 standard drink = 0.6 oz pur e alcohol) Comments Yes Sex and Gender Information Value Date Recorded Sex Assigned at Not on file Legal Sex Female 10:44 AM CDT Gender Identity Not on file Sexual Orientation Not on file documented as of this encounter Plan of Treatment Not on file documented as of this encounter Procedures Procedure Name Priority Date/Time Associated Diagnosis Comments CBC WITH DIFFERENTIAL Stat 08/18/2023 12:00 PM CDT PROTEIN , RANDOM URINE Stat 12:00 PM CDT URIC ACID Stat 08/18/2023 12:00 PM CDT COMPREHENSIVE METABOLIC PANEL Stat 08/18/2023 12:00 PM CDT documented in this encounter Results * PROTEIN/CREATININE RATIO, URINE (08/18/2023 12:00 PM CDT) PROTEIN CONCENTRATION 11 0 - 20 mg/dL 08/18/2023 2:23 PM CDT [facility] CREATININE, URINE 74.5 29.0 - 226.0 mg/dL 08/18/2023 2:23 PM CDT [facility] Comment:Reference Range vari es with fluid intake and diet. PROTEIN/CREAT RATIO, URINE 0.15 0.00 - 0.19 mg/mg Creatinine 08/18/2023 2:23 PM CDT [facility] Urine URINE SPECIMEN OBTAINED BY CLEAN CATCH PROCEDURE / Unknown Collection / Unknown 08/18/2023 12:00 PM CDT 08/18/2023 1:46 PM CDT Narrative [facility] - 08/18/2023 2:23 PM CDT The ACOG 2013 Guidelines recommend using a cutoff of >/= 0.30 protein/creatinine ratio for the diagnosis and management of preeclampsia. Rena COWART URINE ORDERABLES Final Result [facility] CLIA# [id number] [address] [place] [address] * URIC ACID (08/18/2023 12:00 PM CDT) URIC ACID 4.0 2.4 - 5.7 mg/dL 08/18/2023 2:17 PM CDT [facility] Blood Venipuncture / Unknown 08/18/2023 12:00 PM CDT 08/18/2023 1:46 PM CDT Rena Edgar [facility] CHEMISTRY ORDERABLES Fi nal Result [facility] CLIA# [id number] [address] [place] [address] * (ABNORMAL) COMPREHENSIVE METABOLIC PANEL (08/18/2023 12:00 PM CDT) [facility] SODIUM 137 136 - 145 mmol/L 08/18/2023 2:17 PM CDT [facility] POTASSIUM 3.9 3.5 - 5.0 mmol/L 08/18/2023 2:17 PM CDT [facility] CHLORIDE 102 98 - 107 mmol/L 08/18/2023 2:17 PM CDT [facility] [place] CO2 21(L) 22 - 29 mmol/L 08/18/2023 2:17 PM CDT [facility] [place] CALCIUM 8.8 8.6 - 10.2 mg/dL 08/18/2023 2:17 PM CDT [facility] [place] BUN 4(L) 6 - 20 mg/dL 08/18/2023 2:17 PM CDT [facility] [place] CREATININE 0.44(L) 0.51 - 0.95 mg/dL 08/18/2023 2:17 PM CDT [facility] GLUCOSE 84 74 - 99 mg/dL 08/18/2023 2:17 PM CDT [facility] TOTAL PROTEIN 6.8 6.7 - 8.6 g/dL 08/18/2023 2:17 PM CDT [facility] ALBUMIN 3.6 3.5 - 5.2 g/dL 08/18/2023 2:17 PM CDT [facility] BILIRUBIN TOTAL 0.6 0.3 - 1.2 mg/dL 08/18/2023 2:17 PM CDT [facility] ALKALINE PHOSPHATASE 148(H) 35 - 104 U/L 08/18/2023 2:17 PM CDT [facility] AST 15 <33 U/L 08/18/2023 2:17 PM CDT [facility] ALT 10 <34 U/L 08/18/2023 2:17 PM CDT [facility] GFR >60 >=60 mL/min/1.7 3 sq meter 08/18/2023 2:17 PM CDT [facility] Comment:eGFR calculated with 2020 CKD-EPI equation. Vegetarian diet, extremely high or low muscle mass, and may affect results. Cystatin C with Glomerular Filtration Rate is a suitable alternative for these patients. ANION GAP 14 8 - 16 mmol/L 08/18/2023 2:17 PM CDT [facility] Blood Venipuncture / Unknown 08/18/2023 12:00 PM CDT 08/18/2023 1:46 PM CDT Critical access hospital [facility] - [facility] - 08/18/2023 2:17 PM CDT Samples containing indocyanine green cause interferences on Total and/or Direct Bilirubin and must not be measured. Rena Edgar [facility] CHEMISTRY ORDERABLES Fi nal Result [facility] CLME# [id number] [address] [place] [address] * (ABNORMAL) CBC WITH DIFFERENTIAL (08/18/2023 12:00 PM CDT) WBC 6.7 4.0 - 9.8 K/uL 08/18/2023 1:54 PM CDT [facility] RBC 4.33 3.90 - 4.90 M/uL 08/18/2023 1:54 PM CDT [facility] HEMOGLOBIN 12.2 11.8 - 14.8 g/dL 08/18/2023 1:54 PM CDT [facility] - [facility] HEMATOCRIT 36.7 35.5 - 44.0 % 08/18/2023 1:54 PM CDT [facility] MCV 84.8 82.0 - 99.0 fL 08/18/2023 1:54 PM CDT [facility] - [facility] MCH 28.2 27.2 - 32.6 pg 08/18/2023 1:54 PM CDT [facility] MCHC 33.2 31.5 - 35.5 g/dL 08/18/2023 1:54 PM CDT [facility] RDW 15.8(H) 11.5 - 14.5 % 08/18/2023 1:54 PM CDT [facility] RDW-STDEV 48.3 37.1 - 48.7 fL 08/18/2023 1:54 PM CDT [facility] PLATELETS 190 140 - 350 K/uL 08/18/2023 1:54 PM CDT [facility] MPV 10.4 9.3 - 12.4 fL 08/18/2023 1:54 PM CDT [facility] [place] NEUTROPHILS 68 % 08/18/2023 1:54 PM CDT [facility] [place] LYMPHOCYTES 23 % 08/18/2023 1:54 PM CDT [facility] [place] MONOCYTES 8 % 08/18/2023 1:54 PM CDT [facility] [place] EOSINOPHILS 1 % 08/18/2023 1:54 PM CDT [facility] . [place] BASOPHILS 0 % 08/18/2023 1:54 PM CDT [facility] IMMATURE GRANULOCYTES 0 % 08/18/2023 1:54 PM CDT [facility] [place] NEUTROPHIL ABSOLUTE 4.56 1.90 - 7.00 K/uL 08/18/2023 1:54 PM CDT [facility] LYMPHOCYTE ABSOLUTE 1.53 0.70 - 4.50 K/uL 08/18/2023 1:54 PM CDT [facility] MONOCYTE ABSOLUTE 0.52 0.10 - 1.30 K/uL 08/18/2023 1:54 PM CDT [facility] [place] EOSINOPHIL ABSOLUTE 0.06 0.00 - 0.70 K/uL 08/18/2023 1:54 PM CDT [facility] [place] BASOPHILS ABSOLUTE 0.02 0.00 - 0.20 K/uL 08/18/2023 1:54 PM CDT [facility] IMMATURE GRANULOCYTES ABSOLUTE 0.03 0.00 - 0.03 K/uL 08/18/2023 1:54 PM CDT [facility] - [facility] Blood Venipuncture / Unknown 08/18/2023 12:00 PM CDT 08/18/2023 1:46 PM CDT us Rena COWARTM HEMATOLOGY ORDERABLES F inal Result Performing Organization Address [facility] Co de Phone Number [facility]# [id number] [address] [place] [address] documented in this encounter Visit Diagnoses Not on filedocumented in this encounter
--- OUTSIDE RECORDS SUMMARY | 2025-06-06 22:37 | XMS_ITS | Data Portability ---
Author Organization 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 Discussed plan. [email or web address] Not available 02/17/2022 11:00:38 Plan of Treatment Reminders Order Date Submit Date Provider Last Modified By Organization Details Last Modified Time Details Appointments None recorded. Lab TSH, serum or plasma 2021 [facility] (Lab), [address], [place], [address], 04:55:02 afp (alpha-feto protein) panel, maternal screen, serum [address] [facility] (Lab), [address], [place], [address], 18:53:09 TSH, serum or plasma [address] [facility] (Lab), [address], [place], [address], 18:53:09 Referral None recorded. Procedures None recorded. Surgeries None recorded. Imaging US, obstetric, 2nd or 3rd trimester 2021 022 [facility], [address], [address], [place], [address], 13:35:35 US, obstetric, transvagina l 2021 022 [email or web address] [address], [address], [place], [address], 18:41:16 Medication Orders Diflucan 150 mg tablet 2021 022 [facility], [address] [place] [address], [id number], 13:21:17 Patient TargetsNo targets recorded. Patient InstructionsNo instructions recorded. Reason for Referral None Reported. Results Created Date Observation Date Name Description Value Unit Range Abnormal Flag Note LastModifiedBy Organization Detail LastModifiedTime 01/20/20 22 01/20/2022 CBC W/DIF F WBC 8.5 10'3/ uL 3.6-10 .2 Not Available [facility] (Lab) [address], [place], [address], 01/21/2022 12:29:23 01/20/20 22 01/20/2022 CBC W/DIF F RBC 4.50 10'6/ uL (based on docume nted legal sex) 4.10-5 .30 Not Available [facility] (Lab) [address], [place], [address], 01/21/2022 12:29:23 01/20/20 22 01/20/2022 CBC W/DIF F HGB 13.3 g/dL (based on docume nted legal sex) 11.9-1 5.8 Not Available [facility] (Lab) [address], [place], [address], 01/21/2022 12:29:23 01/20/20 22 01/20/2022 CBC W/DIF F HCT 41.1 % (based on docume nted legal sex) 37.4-4 8.3 Not Available [facility] (Lab) [address] [facility], [place], [address], 01/21/2022 12:29:23 01/20/20 22 01/20/2022 CBC W/DIF F MCV 91.0 fL 82.0-9 9.0 Not Available [facility] (Lab) [address] [facility], [place], [address], 01/21/2022 12:29:23 01/20/20 22 01/20/2022 CBC W/DIF F MCH 29.0 pg 27.0-3 3.0 Not Available [facility] (Lab) [address] [facility], [place], [address], 01/21/2022 12:29:23 01/20/20 22 01/20/2022 CBC W/DIF F MCHC 32.0 g/dL 32.0-3 6.0 Not Available [facility] (Lab) [address] [facility], [place], [address], 01/21/2022 12:29:23 01/20/20 22 01/20/2022 CBC W/DIF F RDW 13.0 % 11.0-1 5.0 Not Available [facility] (Lab) [address] [facility], [place], [address], 01/21/2022 12:29:23 01/20/20 22 01/20/2022 CBC W/DIF F plt 295 10'3/ uL 150-45 0 Not Available [facility] (Lab) [address] [facility], [place], [address], 01/21/2022 12:29:23 01/20/20 22 01/20/2022 CBC W/DIF F MPV 9.8 fL 9.8-12 .7 Not Available [facility] (Lab) [address] [facility], [place], [address], 01/21/2022 12:29:23 01/20/20 22 01/20/2022 CBC W/DIF F NRBC's 0.00 % 0 Not Available [facility] (Lab) [address] [facility], [place], [address], 01/21/2022 12:29:23 01/20/20 22 01/20/2022 CBC W/DIF F absolute NRBCs 0.0 10'3/ uL 0 Not Available [facility] (Lab) [address] [facility], [place], [address], 01/21/2022 12:29:23 01/20/20 22 01/20/2022 CBC W/DIF F neutrophils 69.0 % 37.0-7 2.0 Not Available [facility] (Lab) [address] [facility], [place], [address], 01/21/2022 12:29:23 01/20/20 22 01/20/2022 CBC W/DIF F lymphocytes 23.0 % 16.0-4 8.0 Not Available [facility] (Lab) [address] [facility], [place], [address], 01/21/2022 12:29:23 01/20/20 22 01/20/2022 CBC W/DIF F monocytes 7.0 % 4.0-14 .0 Not Available [facility] (Lab) [address] [facility], [place], [address], 01/21/2022 12:29:23 01/20/20 22 01/20/2022 CBC W/DIF F eosinophils 1.0 % 0.0-9. 0 Not Available [facility] (Lab) [address] [facility], [place], [address], 01/21/2022 12:29:23 01/20/20 22 01/20/2022 CBC W/DIF F basophils 0.0 % 0.0-2. 0 Not Available [facility] (Lab) [address] [facility], [place], [address], 01/21/2022 12:29:23 01/20/20 22 01/20/2022 CBC W/DIF F immature granulocytes 0.0 % no define d refere nce range Not Available [facility] (Lab) [address] [facility], [place], [address], 01/21/2022 12:29:23 01/20/20 22 01/20/2022 CBC W/DIF F absolute neutrophils 5.8 10'3/ uL 1.1-6. 0 Not Available [facility] (Lab) [address] [facility], [place], [address], 01/21/2022 12:29:23 01/20/20 22 01/20/2022 CBC W/DIF F absolute lymphocytes 2.0 10'3/ uL 0.7-3. 4 Not Available [facility] (Lab) [address] [facility], [place], [address], 01/21/2022 12:29:23 01/20/20 22 01/20/2022 CBC W/DIF F absolute monocytes 0.6 10'3/ uL 0.3-1. 0 Not Available [facility] (Lab) [address] [facility], [place], [address], 01/21/2022 12:29:23 01/20/20 22 01/20/2022 CBC W/DIF F absolute eosinophils 0.1 10'3/ uL 0.0-0. 6 Not Available [facility] (Lab) [address] [facility], [place], [address], 01/21/2022 12:29:23 01/20/20 22 01/20/2022 CBC W/DIF F absolute basophils 0.0 10'3/ uL 0.0-0. 1 Not Available [facility] (Lab) [address] [facility], [place], [address], 01/21/2022 12:29:23 01/20/20 22 01/20/2022 CBC W/DIF F absolute immature granulocytes 0.00 10'3/ uL 0.00-0 .10 022 12:50 AM: P indic ates parti al resul ts on a panel have been relea sed. Addit ional resul ts will follo w. 022 12:50 AM: This resul t has been final verif ied. No addit ional or levine ed resul ts are expec modesto. Not Available [facility] (Lab) [address] [facility], [place], [address], 01/21/2022 12:29:23 01/20/20 22 01/20/2022 HEPAT ITIS B SURFA CE ANTIG EN hepatitis B surface antigen Non-re active non-re active This assay was perfo rmed using [employer] reage nts and test kits. Value s obtai aster with other assay metho ds or kits canno t be used inter [facility] e[facility] . Not Available [facility] (Lab) [address] [facility], [place], [address], 01/21/2022 12:29:23 01/20/20 22 01/20/2022 HEPAT ITIS C ANTIB KANNAN SCREE N, REFLE X TO CONFI RMATI ON hepatitis C antibody Non-re active non-re active This assay was perfo rmed using [employer] reage nts and test kits. Value s obtai aster with other assay metho ds or kits canno t be used inter [facility] eay . Not Available [facility] (Lab) [address] [facility], [place], [address], 01/21/2022 12:29:24 01/20/20 22 01/20/2022 TSH, REFLE X FREE T4 TSH 5.35 uIU/m L 0.30-5 .33 high Not Available [facility] (Lab) [address] [facility], [place], [address], 01/21/2022 12:29:24 01/20/20 22 01/20/2022 RUBEL LA IGG ANTIB KANNAN, QUANT rubella antibodies, IgG Reacti ve reacti ve Not Available [facility] (Lab) [address] [facility], [place], [address], 01/21/2022 12:29:24 01/20/20 22 01/20/2022 RUBEL LA IGG ANTIB KANNAN, QUANT rubella antibodies, IgG quant 27.1 IU/mL >=10 Non-r eacti ve (Non- Immun e) <10 IU/mL React tia (Immu ne) > or = 10 IU/mL Not Available [facility] (Lab) [address], [place], [address], 01/21/2022 12:29:24 01/20/20 22 01/20/2022 T4 FREE T4, free 0.68 NG/dL 0.60-1 .40 Not Available [facility] (Lab) [address], [place], [address], 01/21/2022 12:29:25 01/20/20 22 01/20/2022 HEMOG LOBIN A1C hemoglobin A1C 5.0 % 0-5.6 The Ameri can [employer] i[employer] n recom mends that a prima ry goal of thera py shoul d be a HBA1C of < 7% and that physi cians shoul d reeva luate the treat ment regim en in patie nts with HBA1C value s consi stent ly > 8%. <5.7% Zahida l 5.7 - 6.4% Incre ased risk for diabe robert >=6.5 % Diagn ostic of diabe robert <7.0% Goal of thera py >8.0% Actio n sugge sted Not Available [facility] (Lab) [address], [place], [address], 01/21/2022 12:29:25 01/20/20 22 01/20/2022 TYPE/ RH/SC REEN ABO/Rh type B POS Not Available [facility] (Lab) [address], [place], [address], 01/21/2022 12:29:25 01/20/20 22 01/20/2022 TYPE/ RH/SC REEN antibody screen NEG Not Available [facility] (Lab) [address], [place], [address], 01/21/2022 12:29:25 01/20/20 22 01/20/2022 TYPE/ RH/SC REEN exp date 2021 23:59 Not Available [facility] (Lab) [address], [place], [address], 01/21/2022 12:29:25 01/20/20 22 01/20/2022 HIV 1/2 ANTIG EN/AN TIBOD Y, REFLE X CONFI RMATI ON HIV Ag-Ab total quant 0.10 idx <1.00 Not Available [facility] (Lab) [address], [place], [address], 01/21/2022 12:29:26 01/20/20 22 01/20/2022 HIV 1/2 ANTIG EN/AN TIBOD Y, REFLE X CONFI RMATI ON HIV Ag-Ab total Non-re active non-re active Not Available [facility] (Lab) [address], [place], [address], 01/21/2022 12:29:26 01/20/20 22 01/20/2022 HIV 1/2 ANTIG EN/AN TIBOD Y, REFLE X CONFI RMATI ON HIV-1 antibody quant 0.00 idx <1.00 Not Available [facility] (Lab) [address], [place], [address], 01/21/2022 12:29:26 01/20/20 22 01/20/2022 HIV 1/2 ANTIG EN/AN TIBOD Y, REFLE X CONFI RMATI ON HIV-1 antibody Non-re active non-re active Not Available [facility] (Lab) [address], [place], [address], 01/21/2022 12:29:26 01/20/20 22 01/20/2022 HIV 1/2 ANTIG EN/AN TIBOD Y, REFLE X CONFI RMATI ON HIV-1 antigen (P24) quant 0.10 idx <1.00 Not Available [facility] (Lab) [address] [place], [address], 01/21/2022 12:29:26 01/20/20 22 01/20/2022 HIV 1/2 ANTIG EN/AN TIBOD Y, REFLE X CONFI RMATI ON HIV-1 antigen (P24) Non-re active non-re active Not Available [facility] (Lab) [address] [place], [address], 01/21/2022 12:29:26 01/20/20 22 01/20/2022 HIV 1/2 ANTIG EN/AN TIBOD Y, REFLE X CONFI RMATI ON HIV-2 antibody quant 0.04 idx <1.00 Not Available [facility] (Lab) [address] [place], [address], 01/21/2022 12:29:26 01/20/20 22 01/20/2022 HIV 1/2 ANTIG EN/AN TIBOD Y, REFLE X CONFI RMATI ON HIV-2 antibody Non-re active non-re active HIV testi ng is perfo rmed using Multi plex- Bead Immun oassa y techn ology . The final overa ll HIV Ag-Ab resul t is deter mined based on the final resul t for each indiv idual darío te. If any of the darío robert has 2 or more repli cates that are REACT TIA, the final overa ll HIV Ag-Ab resul t is also React tia. A Non-R eacti ve test resul t at any point in the inves tigat ion of indiv idual subje cts does not precl ude the possi bilit y of expos ure to or infec tion with HIV-1 and/o r HIV-2 . Non-R eacti ve resul ts can occur if the quant ity of marke r prese nt in the sampl e is below the detec tion limit s of the assay . React tia speci mens must be inves tigat ed by addit ional , more speci fic suppl ement al tests . Speci men confi rmati on will be perfo rmed by the [employer] HIV 1/2 Suppl ement al Assay . The perfo rmanc e of this assay has not been estab lishe d for neona robert and the assay shoul d not be used in indiv idual s young er than 2 years of age. Not Available [facility] (Lab) [address] [facility], [place], [address], 01/21/2022 12:29:26 01/20/20 22 01/20/2022 RPR SCREE N/REF FLORENCE TITER /FTA RPR screen Nonrea ctive nonrea ctive Not Available [facility] (Lab) [address] [facility], [place], [address], 01/21/2022 12:29:26 01/20/20 22 01/20/2022 CULTU RE: URINE result report SEE RESULT S BELOW Test: Cultu re: Urine Speci men Sourc e: Urine - Clean Catch Speci men Type: Urine Speci men Date: 2021 12:05 PM Resul t Date: 022 8:17 PM Resul t Statu s: Final resul t Abnor mal: No Resul ting Lab: [facility] [address] [facility] [address] Tel: CULTU RE ----- ----- ----- --- No growt h in 1 day (dete ction level of 10,00 0 colon ies / ml.) Not Available [facility] (Lab) [address] [facility], [place], [address], 01/21/2022 21:21:30 01/20/20 22 01/20/2022 HEMOG LOBIN OPATH Y EVALU ATION hemoglobin A 97.6 % >96.0 Not Available [facility] (Lab) [address] [facility], [place], [address], 01/29/2022 15:07:23 01/20/20 22 01/20/2022 HEMOG LOBIN OPATH Y EVALU ATION hemoglobin F 0.0 % <2.0 Not Available [facility] (Lab) [address], [place], [address], 01/29/2022 15:07:23 01/20/20 22 01/20/2022 HEMOG LOBIN OPATH Y EVALU ATION hemoglobin A2 2.4 % 2.2-3. 2 Not Available [facility] (Lab) [address], [place], [address], 01/29/2022 15:07:23 01/20/20 22 01/20/2022 HEMOG LOBIN OPATH Y EVALU ATION hemoglobinop athy evaluation interpretati on SEE BELOW ZAHIDA L PATTE RN There is a zahida l patte rn of hemog lobin s and zahida l level s of HbA2 and HbF are prese nt. No varia nt hemog lobin s are obser moe. This is consi stent with A/A pheno type. If iron defic iency coexi sts with beta thala ssemi a trait HbA2 may be in the zahida l range . Rare varia nt hemog lobin s have no separ ation from hemog lobin A by capil alena zone elect ropho resis or high- perfo rmanc e liqui d chrom atogr aphy. If clini kim indic ated, Thala ssemi a and Hemog lobin opath y Compr ehens tia is avail able (Test code 23092 ). Not Available [facility] (Lab) [address], [place], [address], 01/29/2022 15:07:23 01/20/20 22 01/20/2022 drug scree n, urine Amphetamines : negati ve Not Available [facility] [address], [place], [address], 01/20/2022 12:11:36 01/20/20 22 01/20/2022 drug scree n, urine Cannabinoids : positi ve Not Available [facility] [address], [place], [address], 01/20/2022 12:11:36 01/20/20 22 01/20/2022 drug scree n, urine Opiates: negati ve Not Available [facility] [address], [place], [address], 01/20/2022 12:11:36 01/20/20 22 01/20/2022 drug scree n, urine Benzodiazepi ryan: negati ve Not Available [facility] [address], [place], [address], 01/20/2022 12:11:36 02/18/20 22 02/17/2022 TSH, REFLE X FREE T4 TSH 2.37 uIU/m L 0.30-5 .33 Not Available [facility] (Lab) [address], [place], [address], 02/18/2022 18:53:08 02/18/20 22 02/17/2022 AFP, MATER NAL SCREE N interpretati on Scree n negat tia for open NTD. Not Available [facility] (Lab) [address], [place], [address], 02/18/2022 18:53:09 02/18/20 22 02/17/2022 AFP, MATER NAL SCREE N msafp risk open ntd <1 IN 5000 Not Available [facility] (Lab) [address], [place], [address], 02/18/2022 18:53:09 02/18/20 22 02/17/2022 AFP, MATER NAL SCREE N AFP, serum 24.3 NG/mL Not Available [facility] (Lab) [address], [place], [address], 02/18/2022 18:53:09 02/18/20 22 02/17/2022 AFP, MATER NAL SCREE N AFP MOM 0.63 Not Available [facility] (Lab) [address], [place], [address], 02/18/2022 18:53:09 02/18/20 22 02/17/2022 AFP, MATER NAL SCREE N comment This patie nt's ACE (suma mated date of deliv mat) was used to calcu late the gesta paul l age. Perfo rmanc e of mater nal AFP provi elsi a usefu l scree tracy test for detec tion of open neura l tube defec ts. The singl e AFP marke r is not recom diana d for Down syndr ome and other chrom osoma l abnor malit ies scree tracy. Much great er sensi tivit y is achie moe with multi ple marke rs, such as AFP, hCG, uncon jugat ed estri ol, and/o r dimer ic inhib in A, as recom diana d by the [facility] . It shoul d be noted that zahida l test resul ts can never guara ntee the of a zahida l baby and that 2-3% of [facility] rns have some type of physi sohail or menta l defec t, many of which are undet ectab le throu gh any known prena deborah diagn ostic techn ique. Not Available [facility] (Lab) [address], [place], [address], 02/18/2022 18:53:09 02/18/20 22 02/17/2022 AFP, MATER NAL SCREE N note This is a scree tracy test, not a diagn ostic test. This risk asses sment repor t is based in part on demog raphi c data provi ded by the order ing physi destinee. Pleas e notif y the labor atory promp tly if any data are incor rect. For franklin tance with recal culat ions, pleas e call your local [facility] . For franklin tance with inter preta tion of these resul ts, pleas e conta ct your Local [facility] quentin ic couns elor or call [phone]( [phone]). Inter preti ve Cutof fs Scree n Posit tia for Open NTD: > or = 2.50 adjus modesto MOM > or = 1.90 adjus modesto MOM for Insul in-de pende nt diabe tics > or = 4.00 adjus modesto MOM for twins > or = 3.50 adjus modesto MOM for Twins insul in-de pende nt diabe tics > or = 4.50 adjus modesto MOM for tripl ets Not Available [facility] (Lab) [address], [place], [address], 02/18/2022 18:53:09 02/18/20 22 02/17/2022 AFP, MATER NAL SCREE N gestational age 16.3 weeks Not Available [facility] (Lab) [address], [place], [address], 02/18/2022 18:53:09 02/18/20 22 02/17/2022 AFP, MATER NAL SCREE N weight quad 154 lbs Not Available [facility] (Lab) [address], [place], [address], 02/18/2022 18:53:09 02/18/20 22 02/17/2022 AFP, MATER NAL SCREE N patient's ace 2021 Not Available [facility] (Lab) [address], [place], [address], 02/18/2022 18:53:09 02/18/20 22 02/17/2022 AFP, MATER NAL SCREE N ace determined by ULTRAS OUND Not Available [facility] (Lab) [address], [place], [address], 02/18/2022 18:53:09 02/18/20 22 02/17/2022 AFP, MATER NAL SCREE N ethnic origin SAMUEL N AMERIC AN Not Available [facility] (Lab) [address], [place], [address], 02/18/2022 18:53:09 02/18/20 22 02/17/2022 AFP, MATER NAL SCREE N number of fetus(es)? 1 Not Available [facility] (Lab) [address], [place], [address], 02/18/2022 18:53:09 02/18/20 22 02/17/2022 AFP, MATER NAL SCREE N insulin dependent? NO Not Available [facility] (Lab) [address], [place], [address], 02/18/2022 18:53:09 02/18/20 22 02/17/2022 AFP, MATER NAL SCREE N repeat specimen NO Not Available [facility] (Lab) [address], [place], [address], 02/18/2022 18:53:09 02/18/20 22 02/17/2022 AFP, MATER NAL SCREE N hist neural tube defect NO Not Available [facility] (Lab) [address], [place], [address], 02/18/2022 18:53:09 02/18/20 22 02/17/2022 AFP, MATER NAL SCREE N history of down synd? NOT GIVEN Not Available [facility] (Lab) [address], [place], [address], 02/18/2022 18:53:09 02/18/20 22 02/17/2022 AFP, MATER NAL SCREE N donor egg NO Not Available [facility] (Lab) [address] [place], [address], 02/18/2022 18:53:09 02/18/20 22 02/17/2022 AFP, MATER NAL SCREE N donor age at egg retrieval NOT GIVEN Weigh t (lbs) : 154 Race: Black or Afric an Ameri can Perfo rming Organ izati on Infor matio n: Site ID: [id number] Name: Otis Mckeon Addre ss: [id number] [place] [address] Direc tor: Martha sahu M.D. Not Available [facility] (Lab) [address] [facility], [place], [address], 02/18/2022 18:53:09 04/04/20 22 04/04/2022 TSH, REFLE X FREE T4 TSH 2.22 uIU/m L 0.30-5 .33 Not Available [facility] (Lab) [address] [facility], [place], [address], 04/05/2022 04:55:02 05/05/20 22 05/05/2022 GTT - GESTA PAUL Minoo Brian, ACOG OB glucose, 1 hour screen 114 mg/dL 70-139 Not Available [facility] (Lab) [address] [facility], [place], [address], 05/06/2022 09:28:56 05/05/20 22 05/05/2022 HEMAT OCRIT (HCT) HCT 35.5 % (based on docume nted legal sex) 37.4-4 8.3 low Not Available [facility] (Lab) [address] [facility], [place], [address], 05/06/2022 09:28:56 05/05/20 22 05/05/2022 HEMOG LOBIN (HGB) HGB 11.3 g/dL (based on docume nted legal sex) 11.9-1 5.8 low Not Available [facility] (Lab) [address] [place], [address], 05/06/2022 09:28:57 05/05/20 22 05/05/2022 HIV 1/2 ANTIG EN/AN TIBOD Y, REFLE X CONFI RMATI ON HIV Ag-Ab total quant 0.05 idx <1.00 Not Available [facility] (Lab) [address] [facility], [place], [address], 05/06/2022 09:28:57 05/05/20 22 05/05/2022 HIV 1/2 ANTIG EN/AN TIBOD Y, REFLE X CONFI RMATI ON HIV Ag-Ab total Non-re active non-re active Not Available [facility] (Lab) [address] [facility], [place], [address], 05/06/2022 09:28:57 05/05/20 22 05/05/2022 HIV 1/2 ANTIG EN/AN TIBOD Y, REFLE X CONFI RMATI ON HIV-1 antibody quant 0.05 idx <1.00 Not Available [facility] (Lab) [address] [facility], [place], [address], 05/06/2022 09:28:57 05/05/20 22 05/05/2022 HIV 1/2 ANTIG EN/AN TIBOD Y, REFLE X CONFI RMATI ON HIV-1 antibody Non-re active non-re active Not Available [facility] (Lab) [address] [place], [address], 05/06/2022 09:28:57 05/05/20 22 05/05/2022 HIV 1/2 ANTIG EN/AN TIBOD Y, REFLE X CONFI RMATI ON HIV-1 antigen (P24) quant 0.05 idx <1.00 Not Available [facility] (Lab) [address] [place], [address], 05/06/2022 09:28:57 05/05/20 22 05/05/2022 HIV 1/2 ANTIG EN/AN TIBOD Y, REFLE X CONFI RMATI ON HIV-1 antigen (P24) Non-re active non-re active Not Available [facility] (Lab) [address] [place], [address], 05/06/2022 09:28:57 05/05/20 22 05/05/2022 HIV 1/2 ANTIG EN/AN TIBOD Y, REFLE X CONFI RMATI ON HIV-2 antibody quant 0.04 idx <1.00 Not Available [facility] (Lab) [address] [place], [address], 05/06/2022 09:28:57 05/05/20 22 05/05/2022 HIV 1/2 ANTIG EN/AN TIBOD Y, REFLE X CONFI RMATI ON HIV-2 antibody Non-re active non-re active HIV testi ng is perfo rmed using Multi plex- Bead Immun oassa y techn ology . The final overa ll HIV Ag-Ab resul t is deter mined based on the final resul t for each indiv idual darío te. If any of the darío robert has 2 or more repli cates that are REACT TIA, the final overa ll HIV Ag-Ab resul t is also React tia. A Non-R eacti ve test resul t at any point in the inves tigat ion of indiv idual subje cts does not precl ude the possi bilit y of expos ure to or infec tion with HIV-1 and/o r HIV-2 . Non-R eacti ve resul ts can occur if the quant ity of marke r prese nt in the sampl e is below the detec tion limit s of the assay . React tia speci mens must be inves tigat ed by addit ional , more speci fic suppl ement al tests . Speci men confi rmati on will be perfo rmed by the [employer] us HIV 1/2 Suppl ement al Assay . The perfo rmanc e of this assay has not been estab lishe d for neona robert and the assay shoul d not be used in indiv idual s young er than 2 years of age. Not Available [facility] (Lab) [address], [place], [address], 05/06/2022 09:28:57 01/20/20 22 01/20/2022 US, obste tric, nucha l trans lucen cy No observ ation record ed. [email or web address] [facility] [address], [place], [address], 01/20/2022 13:57:08 01/20/20 22 01/20/2022 US, obste tric, nucha l trans lucen cy No observ ation record ed. [facility]MA[facility] [address] [address], [place], [address], 02/03/2022 12:00:50 04/02/20 22 04/02/2022 US, obste tric, 2nd or 3rd trime ster No observ ation record ed. [email or web address] [facility] [address], [place], [address], 04/02/2022 13:56:40 04/02/20 22 04/02/2022 US, obste tric, trans vagin al No observ ation record ed. [email or web address], [place], [address], 04/02/2022 13:56:51 04/02/20 22 04/02/2022 US, obste tric, 2nd or 3rd trime ster No observ ation record ed. [facility] [address], [place], [address], 04/04/2022 16:46:13 04/02/20 22 04/02/2022 US, obste tric, 2nd or 3rd trime ster No observ ation record ed. [email or web address] [address] [address], [place], [address], 04/03/2022 15:38:39 Result Notes None recorded. Problems Name Problem SNOMED Code Status Onset Date Resolution Date Notes Provider Name and Address Organization Details Recorded Time 41870854 Completed 202107/14/2022 Jaimee Santamaria ehl null, [facility] 2 15:23:10 Genital herpes simplex 42263971 Active daily acyclovir Jaimee Santamaria ehl null, [facility] 2 15:23:06 Genital herpes simplex 04632794 Completed daily acyclovir Jaimee Santamaria ehl bernard, [facility] 2 15:23:06 Hypothyro idism 97601497 Completed 2021 25mcg synthroid . recheck 36w Jaime[address] Santamaria [facility], [facility] 2 15:23:06 Hypothyro idism 34979191 Active 2021 25mcg synthroid . recheck 36w Ja[address] Santamaria [facility], [facility] 2 15:23:06 Problem Notes None recorded. Procedures Surgical History Date Name Laterality Status Provider Name and Address Organization Details Recorded Time 12/23/19 22 Date of Last Pap Smear completed [facility] 12/23/2021 11:22:48 11/23/19 Tonsillectomy completed [facility] 12/23/2021 11:23:29 Imaging Results None recorded. Procedure Notes None recorded. Medical Equipment None Reported. Allergies No known drug allergies Medications Name Sig Start Date Stop Date Status Note LastModified by Organization Details LastModified Time ciprofloxac in 750 mg tablet 12/23 completed Not Available Not Available Not Available fluconazole 150 mg tablet TAKE ONE TABLET BY MOUTH ONCE FOR one DOSE active Not Available Not Available No t Available valacyclovi r 1 gram tablet 01/20 completed Not Available Not Available Not Available prochlorper azine maleate 5 mg tablet TAKE 1 TABLET BY MOUTH EVERY 6 TO 8 HOURS NEEDED FOR NAUSEA 12/23 completed Not Available Not Available Not Available metronidazo le 500 mg tablet Take one tablet by mouth twice daily active Not Available Not Available No t Available acyclovir 800 mg tablet TAKE ONE TABLET BY MOUTH EVERY DAY FOR INFECTION active Not Available Not Available No t Available levothyroxi ne 25 mcg tablet TAKE ONE TABLET BY MOUTH EVERY DAY 2021 active Not Available Not Available Not Avai lable cephalexin 500 mg capsule 12/23 completed Not Available Not Available Not Available clotrimazol e-betametha sone 1 %-0.05 % topical cream 12/23 completed Not Available Not Available Not Available progesteron e micronized 200 mg capsule 12/23 completed Not Available Not Available Not Available mupirocin 2 % topical ointment 12/23 completed Not Available Not Available Not Available methylpredn isolone 4 mg tablets in a dose pack TAKE BY MOUTH DIRECTED PER PACKAGE DIRECTION S WITH FOOD 12/23 completed Not Available Not Available Not Available albuterol sulfate HFA 90 mcg/actuati on aerosol inhaler INHALE 1 TO 2 PUFFS BY MOUTH EVERY 4 TO 6 HOURS NEEDED FOR SHORTNESS OF BREATH 12/23 completed Not Available Not Available Not Available fluticasone propionate 50 mcg/actuati on nasal spray,suspe nsion SHAKE LIQUID AND USE 1 SPRAY IN EACH NOSTRIL TWICE DAILY 12/23 completed Not Available Not Available Not Available escitalopra m 10 mg tablet 12/23 completed Not Available Not Available Not Available Vitals Date Recorded Body height Body mass index (BMI) Body weight Systolic And Diastolic Provider Name and Address Organization Details Last Updated DateTime 02/17/2022 154.31 cm 29.3 kg/m2 21278.224 98 g 115/72 mm[Hg] Jocelin Kelley [facility] 02/17/2022 11:07:29 Date Recorded Body height Body mass index (BMI) Body weight Systolic And Diastolic Provider Name and Address Organization Details Last Updated DateTime 04/04/2022 154.31 cm 30.5 kg/m2 07029.779 2 g 131/74 mm[Hg] Joelle [facility] 04/04/2022 11:45:03 Date Recorded Body height Body mass index (BMI) Body weight Systolic And Diastolic Provider Name and Address Organization Details Last Updated DateTime 05/05/2022 154.31 cm 31.2 kg/m2 53268.148 68 g 126/79 mm[Hg] Joelle Barnes[facility] 05/05/2022 10:31:10 Date Recorded Body weight Provider Name an d Address Organization Details Last Updated DateTime 05/09/2022 77603.06107 g Megan French MD [address], [place], [address], [facility] 05/10/2022 13:50:56 Date Recorded Body height Body mass index (BMI) Systolic And Diastolic Provider Name and Address Organization Details Last Updated DateTime 05/09/2022 154.31 cm 31.4 kg/m2 115/74 mm[Hg] Joelle Campbell [facility] 05/09/2022 12:51:09 Social History Question Answer Notes LastModified by Organizat ion Details LastModified Time Do You Have An Advance Directive? No [email or web address] Information n ot available 12/23/2021 Are You Blind Or Do You Have Difficulty Seeing? No [email or web address] Information n ot available 12/23/2021 What Is Your Level Of Caffeine Consumption? Occasional Information not available 12/23/2021 How Much Tobacco Do You Chew? None [email or web address] Information not available 12/23/2021 In The 14 Days Before Symptom Onset, Have You Had Close Contact With A Laboratory-confirm ed COVID-19 While That Case Was Ill? No [email or web address] Information n ot available 12/23/2021 In The 14 Days Before Symptom Onset, Have You Had Close Contact With A Person Who Is Under Investigation For COVID-19 While That Person Was Ill? No [email or web address] Information not available 12/23/2021 Have You Been To An Area Known To Be High Risk For COVID-19? No [email or web address] Information not available 12/23/2021 Are You Deaf Or Do You Have Serious Difficulty Hearing? No [email or web address] Information not available 12/23/2021 What Type Of Diet Are You Following? REGULAR [email or web address] Information n ot available 12/23/2021 What Is The Highest Grade Or Level Of School You Have Completed Or The Highest Degree You Have Received? [id number] [email or web address] Information not available 12/23/2021 Are There Any Guns Present In Your Home? No Information not available 12/23/2021 Do You Use Protection During Sex? No [email or web address] Information not available 12/23/2021 Do You Use Your Seat Belt Or Car Seat Routinely? Yes [email or web address] Information not available 12/23/2021 Do You Have Smoke And Carbon Monoxide Detectors In Your Home? Yes [email or web address] Information not available 12/23/2021 How Much Tobacco Do You Smoke? No [email or web address] Information not available 12/23/2021 Do You Use Sunscreen Routinely? No [email or web address] Information not available 12/23/2021 Have You Used IV Drugs? No [email or web address] Information not available 12/23/2021 Sex: Unknown Functional Status Question Answer Note LastModified by Organizat ion Details LastModified Time Do you use any illicit or recreational drugs? No [email or web address] Information not available 12/23/2021 What is your level of alcohol consumption? None [email or web address] Information not available 12/23/2021 Are you able to walk? 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 Moderate Information not available 12/23/2021 Mental Status Question Answer Note LastModified by Organization D etails LastModified Time Do you feel stressed (tense, restless, nervous, or anxious, or unable to sleep at night)? [id number] [email or web address] Information not available 12/23/2021 Family History Relationship Description Onset Age of this Age Resolved Age Notes LastModified by Organization Details LastModified Time Unspecified Relation Family history unknown [email or web address] Not available 12/23 10:04:50 Father No current problems or disability [email or web address] Not available 11/25 11:22:20 Mother No current problems or disability Not available 11/25 11:22:20 Medical History Condition Response Allergies (Food, seasonal, environmental ) Y Other N Breast Cancer N Drug/Latex Allergies/Reactions N Blood Transfusion N Dermatologic Disorders N Lung Disease N Defects or Inherited Disease N Breast Problem N Gestational Diabetes N Hematologic disorders N Anesthesia Complications N History of STI Y Deep Vein Thrombosis N Polycystic ovary syndrome N Anxiety Disorder Y Autoimmune disease N Arthritis N Infertility N Polyps N Acid Reflux (GERD) N History of abnormal pap N Cancer N Stroke N Varicosities N Neurologic/Epilepsy N Endometriosis N High Cholesterol N Headaches N Fibromyalgia N Kidney Disease N Heart Problems N Kidney or Bladder Problems N Thyroid Problems N GI Problems N Eating Disorder N Anemia N Art (IVF or FET) N Psychiatric Illness N Ovarian Cancer N Diabetes N Pulmonary (TB, Asthma) N Hepatitis/Liver Disease N No Past Medical History Y Eczema N Urinary Tract Infection N Abuse/Domestic Violence N Asthma Y Trauma/Violence N Depression/ depression Y Heart Disease N Pre-Eclampsia N Hypertension N Osteoporosis N Thrombophilias N Gynecological History Statement/Question Response Date of Last Mammogram Date of LMP 10/26/2021 On BCP's at Conception? N N Was last menstrual period normal Y STIs/STDs Yes HPV Vaccine N Duration of Flow (days) 6 Current Control Method Date of control 2021 Frequency of Cycle (Q days) 32 Most Recent Bone Density Sexually Active? Y Condoms Age of first menstrual cycle 10 Date of Last Pap Smear 12/23/2021 Sexual Problems? N Desired Control Method Condoms LMP Definite N Obstetrics History GPAL:G 2 P 0 0 1 0 Type Value Spontaneous 1 Living 0 Total 2 Past Encounters Encounter ID Performer Location Encounter Start Date Encounter Closed Date Diagnosis/Indication Diagnosis SNOMED-CT Code Diagnosis ICD10 Code Diagnosis Note [id number] Latoya Carlos [facility] [address],[place] [address] 12/23/2021 09:46:13 12/25/2021 11:30:19 Amenorrhea 66581941 N91.2 Gynecologi c examination 10591308 Z01.419 Z11.3 Z11.8 [id number] Dandre Jordan MD [facility] [address],[place] [address] 12/23/2021 09:47:30 12/23/2021 11:03:03 [id number] Megan French MD [facility] [address],[place] [address] 01/20/2022 11:21:06 01/20/2022 12:31:41 screening 587493692 Z36.82 [id number] Megan French MD [facility] [address],[place] [address] 01/20/2022 11:21:40 01/20/2022 12:43:29 Routine care 866536996 Z34.91 Genital he rpes simplex 72269469 A60.9 [id number] Dandre Jordan MD [facility] [address],[place] [address] 02/17/2022 10:52:16 02/18/2022 15:06:27 screening 605219491 Z36.89 [id number] Mgean French MD [facility] [address],[place] [address] 04/04/2022 11:34:51 04/04/2022 12:09:53 Hypothyroidism 48963019 E03.9 Routine an tenatal care 171798058 Z34.91 [id number] Megan French MD [facility] [address],[place] [address] 04/02/2022 11:49:50 04/02/2022 13:11:57 screening 750777479 Z36.3 [id number] Megan French MD [facility] [address],[place] [address] 05/05/2022 10:22:45 05/05/2022 11:24:36 Routine care 620430572 Z34.91 Hypothyroidism 71059535 E03.9 [id number] Megan French MD [facility] [address],[place] [address] 05/09/2022 12:39:42 05/12/2022 15:30:41 Genital herpes simplex 43440475 A60.9 Candidal vulvovaginitis 96270234 B37.3 Health Concerns Section Related Observation LastModified by Organization Detai ls LastModified Time None Recorded Concern Status LastModified by Organization Details LastModified Time None Recorded Advance Directives Directive N: Payers Insurance Date Sequence Insurance Name Policy Number Policy Sidhu Covered Member ID Sidhu Member ID Guarantor Name 12/18/2021 1 [employer] [id number] Tationa Bowling [id number] Tationa Bowling 03/19/2022 1 [employer] - [employer] (PPO) Tationa Bowling [id number] Tationa Bowling 05/08/2022 1 [facility] - [employer] - CIGNA Tationa Bowling [id number] Thao Bowling OBGyn Episode Ob Episode Information Episode Created Date Number of Fetuses Patient Bloodtype Patient rh Status Prepregnancy Weight lbs Domestic Partner Domestic Partner Phone Father Name Boning Room Worker Status 12/23/19 22 1 CLOSED Fetus Data First Name Last Name Admitted to NICU Weight (g) Sex Living Outcome Pediatric Complications Fetus ID Race Codes Race Delivery Type , Spontane ous [id number] Ace Calculation Initial Ace Date Initial Exam Date Initial Exam Provider Initial Ultrasound Date Last Menstrual Period Date Ultra Sound Weeks Gestation 0 Eighteen To Twenty Week Ace Update Ultra Sound Date Fundal Height At Umbil Quickening Date Ultra Sound Latest Weeks Gestation Final Ace Confirmed By Final Ace Confirmed Date Final Ace Date Ultra Sound Latest Days Gestation 0 0 Menstrual History Last Menstrual Date Menses Monthly On Bcp Conception Prior Menses Frequency Hcg Plus Date Menarche Onset Age Delivery Information Delivery Date Delivery Type Labor Anesthesia Weeks Gestation Incision Type Labor Labor Length Hrs Delivered By Post Complications Tubal Sterilization Discharge Date Comments Discharge Information Feeding Method Contraceptive Method Maternal HG B and HCT Levels Ob Episode Information Episode Created Date Number of Fetuses Patient Bloodtype Patient rh Status Prepregnancy Weight lbs Domestic Partner Domestic Partner Phone Father Name Boning Room Worker Status 01/20/20 22 1 147 CLOSED Fetus Data First Name Last Name Admitted to NICU Weight (g) Sex Living Outcome Pediatric Complications Fetus ID Race Codes Race Delivery Type [id number] Problems Problem Notes Problem Name Start Date End Date Resolution Snomed Code Not e Hypothyroidism 01/20/2022 08526416 25mc g synthroid. recheck 36w Genital herpes simplex 2527377 6 daily acyclovir Ace Calculation Initial Ace Date Initial Exam Date Initial Exam Provider Initial Ultrasound Date Last Menstrual Period Date Ultra Sound Weeks Gestation 08/02/2022 01/20/2022 12/23/2021 10/26/2021 8 Eighteen To Twenty Week Ace Update Ultra Sound Date Fundal Height At Umbil Quickening Date Ultra Sound Latest Weeks Gestation Final Ace Confirmed By Final Ace Confirmed Date Final Ace Date Ultra Sound Latest Days Gestation 0 [email or web address] 01/20/2022 08/02/20 22 0 Pre-mary Flowsheet Flowsheet Date 01/20/2022 Harrison Score Blood Edema Fundus Height Fundus Units Glucose Ketones Leukocytes Nitrite Labor Signs Protein Cervic Dilation Cervic Effacement Cervic Station neg none none trace Type Weight in lbs Pre/Post Dialysis Refused Weight 149.346495757136 BP Diastolic BP Location Tested BP Systolic BP Type 83 129 Fetus Heart Rate Present A 140 Fetus Movement A No Comments Thao is a 21yo at 12.2 by LMP cw early US for care. Her history is noncontributory except for h/o one 6w sab and genital HSV, takes daily acyclovir. SHe states she was told she was heterozygous but not sure for what. Will request records. Has not had flu shot, has had COVID vaccines but not booster, will do both. Labs and NIPT and CF/SMA today. Flowsheet Date 02/17/2022 Harrison Score Blood Edema Fundus Height Fundus Units Glucose Ketones Leukocytes Nitrite Labor Signs Protein Cervic Dilation Cervic Effacement Cervic Station 16 Type Weight in lbs Pre/Post Dialysis Refused Weight 154.324277010132 BP Diastolic BP Location Tested BP Systolic BP Type 72 L arm 115 sitting Fetus Heart Rate Present A 147 Fetus Movement A Yes Comments No complaints, no cramping, no bleeding, repeating TSH today and alpha protein Flowsheet Date 04/02/2022 Harrison Score Blood Edema Fundus Height Fundus Units Glucose Ketones Leukocytes Nitrite Labor Signs Protein Cervic Dilation Cervic Effacement Cervic Station Type Weight in lbs Pre/Post Dialysis Refused BP Diastolic BP Location Tested BP Systolic BP Type Fetus Heart Rate Present Fetus Movement Comments Flowsheet Date 04/04/2022 Harrison Score Blood Edema Fundus Height Fundus Units Glucose Ketones Leukocytes Nitrite Labor Signs Protein Cervic Dilation Cervic Effacement Cervic Station neg none none trace Type Weight in lbs Pre/Post Dialysis Refused Weight 160.441023344074 BP Diastolic BP Location Tested BP Systolic BP Type 74 131 Fetus Heart Rate Present A 145 Fetus Movement A Yes Comments Doing well. Anatomy US compl ete and wnl. Records reviewed. heterozygous for MTHFR- discussed no anticoagulation needed. TSH today. Will do COVID booster soon. GCT next vsiit. Flowsheet Date 05/05/2022 Harrison Score Blood Edema Fundus Height Fundus Units Glucose Ketones Leukocytes Nitrite Labor Signs Protein Cervic Dilation Cervic Effacement Cervic Station neg none 26 none trace Type Weight in lbs Pre/Post Dialysis Refused Weight 164.75106239863 BP Diastolic BP Location Tested BP Systolic BP Type 79 126 Fetus Heart Rate Present A 145 Fetus Movement A Yes Comments Doing great, no concerns. CO VID booster done. Discussed tdap, will do. TSH repeat at 36w, has been stable. GCT today. Flowsheet Date 05/09/2022 Harrison Score Blood Edema Fundus Height Fundus Units Glucose Ketones Leukocytes Nitrite Labor Signs Protein Cervic Dilation Cervic Effacement Cervic Station Type Weight in lbs Pre/Post Dialysis Refused Weight 165.833631300634 BP Diastolic BP Location Tested BP Systolic BP Type 74 115 Fetus Heart Rate Present Fetus Movement Comments Here complainingof green and white discharge and itching for 4 days. Also just getting over a herpes outbreak. ON SSE chunky white DC with erythema at introitus. diflucan. Will increase acyclovir to twice daily until infection clears. Got Tdap done. FU as scheduled. Menstrual History Last Menstrual Date Menses Monthly On Bcp Conception Prior Menses Frequency Hcg Plus Date Menarche Onset Age 1210/26/2021 Genetic Screening And Infection History Question Response Note Mental Retardation/Autism false Patient's Age Will Be 35 Yea rs Or Older At Estimated Date of Delivery false Thalassemia (Lao, Macanese, Mediterranean, Or Background): MCV < 80 false Neural Tube Defect (Meningom yelocele, Spina Bifida, Or Anencephaly) false Congenital Heart Defect false Down Syndrome false Yogesh-Sachs (eg, Amish, Cajun, Israeli-Eagle) f alse Arthur Disease false Sickle Cell Disease Or Trait () false Hemophilia Or Other Blood Disorders false Muscular Dystrophy false Cystic Fibrosis false Navarro's Chorea false Intellectual Disability/Autism false If Yes, Was Person Tested For Fragile X? false Other Inherited Genetic Or Chromosomal Disorder false Maternal Metabolic Disorder (eg, Type 1 Diabetes , PKU) false Patient Or Baby's Father Had A Child With Defects Not Listed Above false Recurrent Loss, Or A Stillbirth false Medications (including Suppl ements, Vitamins, Herbs, OTC Drugs), Illicit/Recreational Drugs, Alcohol true If Yes, Agent(s) And Strength/Dosage false Any Other Genetic History false Live With Someone With TB Or Exposed To TB false Patient Or Partner Has History Of Genital Herpes false Rash Or Viral Illness Since Last Menstrual Perio d false History Of STD, Gonorrhea, Chlamydia, HPV, Syphi lis false Other Infection History true genital HSV History of HIV false History of Hepatitis false Prior GBS-infected child false Hemoglobinopathy Or Carrier false Other Structural Defect false Recent Travel History Outside of Country false Delivery Information Delivery Date Delivery Type Labor Anesthesia Weeks Gestation Incision Type Labor Labor Length Hrs Delivered By Post Complications Tubal Sterilization Discharge Date Comments Discharge Information Feeding Method Contraceptive Method Maternal HG B and HCT Levels
--- OUTSIDE RECORDS SUMMARY | 2025-06-06 22:37 | XMS_ITS | Referral Summary ---
Author Organization [facility] [address] Address [address] [place] [address] Care Team Providers Care Music Publisher Name Role Phone Unknown, Notinfile Primary Care [...] Comments Blood Pressure 132/82 11/05/2022 3:00 PM TOOL DIE MAKER Pulse 84 11/05/2022 3:00 PM TOOL DIE MAKER Temperature - - Respiratory Rate - - Oxygen Saturation - - Inhaled Oxygen Concentration - - Weight 68 kg (150 lb) 11/05/2022 3:00 PM TOOL DIE MAKER Height 132.1 cm (4' 4) 11/05/2022 3:00 PM TOOL DIE MAKER Body Mass Index 39 11/05/2022 3:00 PM TOOL DIE MAKER Plan of Treatment Not on file Insurance CLARISSA [employer] Care Teams Music Publisher Relationship Specialty Start Date End Date Unknown, Notinfile PCP - General 09/26/22
[2025-06-06 22:42] VITALS: BP 147/94; PULSE 79; RESP 18; TEMP 36.7; O2SAT 100
[2025-06-07 00:14] VITALS: BP 135/83; PULSE 83; RESP 18; O2SAT 100
--- OUTSIDE RECORDS SUMMARY | 2025-06-07 00:22 | XMS_ITS | Clinical Summary ---
Author Organization [facility] Natanael Ulien KEALAKEKUA Address [address] [employer] [address] [address] Care Team Providers Care Environmental Compliance Manager Name Role Phone Unavailable Primary Care Provider [...] Department Care Team Description 06/06/2025 Results Follow-Up [facility] Terranova Melrude [address] [place] [address] Nanda Love MD TSH, LIPID PANEL, COMPREHENSIVE METABOLIC PANEL, CBC WITH DIFFERENTIAL 06/05/2025 10:00 AM CDT Office Visit [facility] Terranova Melrude [address] [place] [address] Screening for condition from Last 3 Months Immunizations Immunization Administration Dates Next Due (ADACEL/BOOSTRIX)(10 YR UP) TDAP VACCINE, 0.5ML, IM 06/25/2023,05/05/2022 (PFIZER)(12 YR UP) COVID-19 VACCINE - EMERGENCY USE AUTHORIZATION, MRNA, [id number](PF) 30 MCG/0.3 ML IM SUSP 04/11/2022,09/23/2021,08/23/2021 Family [...] Diagnostics-S t Pranay Comment: Test Performed at: [facility] [address] [place] [address] Bisi Graham Blood 06/05/2025 9:44 AM CDT 06/06/2025 2:01 AM CDT us Nanda Love MD HEMATOLOGY ORDERABLES Final Re sult [facility] [phone] [facility] [address] [place] [address] * TSH (06/05/2025 9:44 AM CDT) TSH 3.05 mIU/L [facility] Comment: Reference Range > or = 20 Years 0.40-4.50 Ranges First trimester 0.26-2.66 Second trimester 0.55-2.73 Third trimester 0.43-2.91 Test Performed at: [facility] [address] [place] [address] Bisi Graham Blood 06/05/2025 9:44 AM CDT 06/06/2025 2:01 AM CDT us Nanda Love MD CHEMISTRY ORDERABLES Final Res ult [facility] [phone] [facility] [place] [address] [place] [address] * (ABNORMAL) LIPID PANEL (06/05/2025 9:44 AM CDT) Pathologist [facility] CHOLESTEROL 139 <200 mg/dL [facility]ind[facility]ke Pires HDL 39(L) > OR = 50 mg/dL [facility] TRIGLYCERIDE 178(H) <150 mg/dL [facility] LDL CALCULATED 73 mg/dL (calc) Otis [facility] Brindavan PowerDiane Pires Comment: Reference range: <100 Desirable range <100 mg/dL for primary prevention; <70 mg/dL for patients with CHD or diabetic patients with > or = 2 CHD risk factors. LDL-C is now calculated using the Hernandez calculation, which is a validated novel method providing better accuracy than the Friedewald equation in the estimation of LDL-C. Mp BRANCH et al. ELAINA. 2013;310(19): 0850-4928 (http://education.MyWants.TourRadar/faq/RJJ237) CHOL/HDL RATIO 3.6 <5.0 (calc) Otis Pires NON-HDL CHOLESTEROL 100 <130 mg/dL (calc) Otis Pires Comment: For patients with diabetes plus 1 major ASCVD risk factor, treating to a non-HDL-C goal of <100 mg/dL (LDL-C of <70 mg/dL) is considered a therapeutic option. Test Performed at: [facility] [address] [place] [address] Bisi Graham Blood 06/05/2025 9:44 AM CDT 06/06/2025 2:01 AM CDT us Nanda Love MD CHEMISTRY ORDERABLES Final Res ult [facility] [phone] [facility] [place] [address] [place] [place] [address] * COMPREHENSIVE METABOLIC PANEL (06/05/2025 9:44 AM CDT) GLUCOSE 87 65 - 99 mg/dL [facility] gordy Pires Comment: Fasting reference interval BUN 10 7 - 25 mg/dL [facility] Pranay CREATININE 0.58 0.50 - 0.96 mg/dL [facility] Pr[facility] GFR 128 > OR = 60 mL/min/1. 73m2 [facility] Pr[facility]ay BUN/CREAT RATIO SEE NOTE: 6 - 22 (calc) [facility] Pr[facility] Comment: Not Reported: BUN and Creatinine are within reference range. SODIUM 137 135 - 146 mmol/L [facility] Pranay POTASSIUM 4.1 3.5 - 5.3 mmol/L [facility] Pr[facility] CHLORIDE 103 98 - 110 mmol/L [facility] Pr[facility] CO2 26 20 - 32 mmol/L [facility] Pr[facility] CALCIUM 9.2 8.6 - 10.2 mg/dL [facility] Pranay TOTAL PROTEIN 7.5 6.1 - 8.1 g/dL [facility] Pr[facility] ALBUMIN 4.3 3.6 - 5.1 g/dL [facility] GLOBULIN 3.2 1.9 - 3.7 g/dL (calc) [facility] ALBUMIN/GLOBULIN RATIO 1.3 1.0 - 2.5 (calc) [facility] Pr[facility] BILIRUBIN TOTAL 0.5 0.2 - 1.2 mg/dL [facility] ALKALINE PHOSPHATASE 83 31 - 125 U/L [facility] AST 14 10 - 30 U/L [facility] Pr[facility]ay ALT 10 6 - 29 U/L [facility] Pires Comment: Test Performed at: [facility] [address] [place] [address] Bisi Graham Blood 06/05/2025 9:44 AM CDT 06/06/2025 2:01 AM CDT Nanda Love MD CHEMISTRY ORDERABLES Final Res ult Performing Organization Address City/[facility]/ZIP Code Phone Number [facility] [phone] [place] [address] [place] [address] * GC/CHLAMYDIA, UROGENITAL (04/01/2023 12:36 PM CDT) C TRAC RNA NOT DETECTED NOT DETECTED [facility] [place] N.GONORRHOEAE RNA, TMA NOT DETECTED NOT DETECTED [facility] COMMENT INFECTIOUS DISEASE [facility] Comment: The analytical performance characteristics of this assay, when used to test SurePath(TM) specimens have been determined by [facility]. The modifications have not been cleared or approved by the FDA. This assay has been validated pursuant to the CLIA regulations and is used for clinical purposes. For additional information, please refer to https://education.Rocket Raise/faq/DFG874 (This link is being provided for information/ educational purposes only.) Test Performed at: [facility] [address] [place] [address] Bisi Graham MD 04/01/2023 12:3 6 PM CDT 04/01/2023 12:37 PM CDT Rashmi Simley CNM MICROBIOLOGY - GENERAL ORD ERABLES Final Result [facility] [phone] [facility] [address] [facility] [place] [address] from Last 3 Months or Most Recently Relevant to Health Maintenance Insurance ALLEGIANCE OPEN ACCESS RX [employer] Express ALLEGIANCE OPEN ACCESS Advance Directives For more information, please contact: [phone] * Full Code (Latest Code Status on [...]
--- OUTSIDE RECORDS SUMMARY | 2025-06-07 00:22 | XMS_ITS | Patient Health Record ---
Author Organization [facility] Address [address] [place] [address] Care Team Providers Care Airplane Navigator Name Role Phone Annabella Martin Unavailable [phone] Megan West Unavailable [phone] Allergies No Known Allergies Results Component Value Reference Range Notes UDT Reviewed date:01/10/2025 01:09:25 PM Interpretation: Performing Lab: Notes/Report: THC POS 0 - 50 ng/ml Cocaine NEG 0 - 300 ng/ml Amphetamine NEG 0 - 1000 ng/ml Buprenorphine (BUP) NEG 0 - 10 ng/ml Secobarbital (Bar) NEG 0 - 300 ng/ml Oxazepam (BZO) NEG 0 - 300 ng/ml 9-nneejiiomx-3,7-jmxyiwdn-9, 3-dipheny lpyrrolidine (EDDP) NEG 0 - 300 ng/ml Methamphetamine (MET) NEG 0 - 1000 ng/ml Methylenedioxymethamphetamine (MDMA) NEG 0 - 500 ng/ml Morphine (MOP 300/[id number]) NEG 0 - 300 ng/ml Methadone (MTD) NEG 0 - 300 ng/ml Phencyclidine (PCP) NEG 0 - 25 ng/ml Nortriptyline (TCA) NEG 0 - 1000 ng/ml Oxycodone NEG 0 - 300 ng/ml x NEG 0 - 300 ng/ml THCCOOH Reviewed date:01/13/2025 04:32:14 PM Interpretation: Performing Lab: [facility], [address] [place] [address], Director - [id number] Notes/Report: An exception occurred while processing this report and so it has incomplete data. Please contact [employer] for assistance. THCCOOH 30.4 15.0 ng/mL Not Medicated Inconsistent PDF Report CE_OUT_RAW_CO MMON_SRC_ORU Reason For Referral No Information Medications Medication [...] Status Risk Notes Problem Generalized anxiety disorder (84980251) ISSA (generalized anxiety disorder) (F41.1) Active confirmed Problem Mild recurrent major depression (77182477) MDD (major depressive disorder), recurrent episode, mild (F33.0) Active confirmed Vital Signs Heart Rate 98 /min 05/16/2025 Height-cm 154.94 cm 05/16/2025 Blood pressure diastolic 79 mm Hg 05/16/2025 Weight-kg 74.84 kg 05/16/2025 Height 61 in 05/16/2025 Blood pressure systolic 111 mm Hg 05/16/2025 Weight 165 lbs 05/16/2025 BMI 31.17 kg/m2 05/16/2025 Encounters Encounter Location Date Provider Diagnosis [facility] [address] [address] 01/10/2025 Annabella Veronica ISSA (generalized anxiety disorder) F41.1 and MDD (major depressive disorder), recurrent episode, mild F33.0 [facility] ON24 [address] [facility] [address] [place] [address] 02/14/2025 Annabella Kurilla ISSA (generalized anxiety disorder) F41.1 ; MDD (major depressive disorder), recurrent episode, mild F33.0 ; Encounter for screening for depression Z13.31 and Encounter for screening for cardiovascular disorders Z13.6 [facility] [address] [place] [address] [facility] [address] [place] [address] 02/21/2025 Megan Hemann ISSA (generalized anxiety disorder) F41.1 ; MDD (major depressive disorder), recurrent episode, mild F33.0 and Encounter for screening for depression Z13.31 [facility] [address] [place] [address] [facility] [address] [place] [address] 03/21/2025 Megan Hemann ISSA (generalized anxiety disorder) F41.1 ; MDD (major depressive disorder), recurrent episode, mild F33.0 and Encounter for screening for depression Z13.31 [facility] [address] [place] [address] [address] 04/04/2025 Megan Hemann ISSA (generalized anxiety disorder) F41.1 and MDD (major depressive disorder), recurrent episode, mild F33.0 [facility] [address] [place] [address] [address] 04/18/2025 Megan Hemann Encounter for screen ing for depression Z13.31 ; ISSA (generalized anxiety disorder) F41.1 and MDD (major depressive disorder), recurrent episode, mild F33.0 [facility] [address] [place] [address] [address] 05/02/2025 Megan Hemann ISSA (generalized anxiety disorder) F41.1 and MDD (major depressive disorder), recurrent episode, mild F33.0 [facility] [address] [place] [address] [facility] [address] [place] [address] 05/16/2025 Annabella Kurilla ISSA (generalized anxiety disorder) F41.1 ; MDD (major depressive disorder), recurrent episode, mild F33.0 ; Encounter for screening for depression Z13.31 and Encounter for screening for cardiovascular disorders Z13.6 [facility] [address] [place] [address] [facility] [address] [place] [address] 05/16/2025 Megan Hemann ISSA (generalized anxiety disorder) F41.1 and MDD (major depressive disorder), recurrent episode, mild F33.0 [facility], [facility] [address] [place] [address] 05/30/2025 Megan West ISSA (generalized anxiety disorder) F41.1 ; MDD (major depressive disorder), recurrent episode, mild F33.0 and Encounter for screening for depression Z13.31 [facility] [place] [address] [place] [address] 01/10/2025 Annabelladanielle Martin [facility], [facility] [address] [place] [address] 01/13/2025 Annabella Martin [facility], [facility] [address] [facility] [address] [place] [address] 01/13/2025 Annabelladanielle Martin [facility], [place] [address] [facility] [address] [place] [address] 01/13/2025 Annabella Martin [facility], [place] [address] [facility] [address] [place] [address] 01/17/2025 Annabella Martin [facility], [place] [address] [facility] [address] [place] [address] 01/19/2025 Annabella Martin [facility], [place] [address] [facility] [address] [place] [address] 01/26/2025 Annabelladanielle Martin [facility], [place] [address] [facility] [address] [place] [address] 01/27/2025 Annabella Martin Assessments Encounter Date Diagnosis [...] effects of psychotropic medications. -Crisis prevention hotline 298. Plan Of Treatment Next Appt Details Provider Name:Megan West, 06/13/2025 11:00:00 AM, [address], [place] [address], [place], [address], Provider Name:Megan Herreragio, 07/10/2025 09:00:00 AM, [address], [facility] [address], [place], [address], Provider Name:Megan Herreragio, 07/25/2025 11:00:00 AM, [address], [address], [address], Provider Name:Annabella marie, 08/16/2025 02:30:00 PM, [address], [address], [address], Insurance Providers Payer Name Payer Address Payer Phone Subscriber Number Group Number Insured Name Patient Relationship to Insured Coverage Start Date Coverage End Date Allegiance Benefit Plan Management [address] [facility] [place] [id number] Thao Bowling Self - patient is the [...]
--- OUTSIDE RECORDS SUMMARY | 2025-06-07 00:22 | XMS_ITS | Encounter Summary ---
Author Organization [facility] Address [address] [place] [address] Care Team Providers Care Transit Survey Worker Name Role Phone Unavailable Primary Care Provider Unavailabl e Encounter Details Date Type Department Care Team (Late st Contact Info) Description 08/18/2023 Lab Requisition [facility] Laboratory Services S [facility] [address] [place] [address] Rena Edgar, [facility] [address] [place] [address] Social History Tobacco Use Types [...] - 20 mg/dL 08/18/2023 2:23 PM CDT [facility] CREATININE, URINE 74.5 29.0 - 226.0 mg/dL 08/18/2023 2:23 PM CDT [facility] Comment:Reference Range vari es with fluid intake and diet. PROTEIN/CREAT RATIO, URINE 0.15 0.00 - 0.19 mg/mg Creatinine 08/18/2023 2:23 PM CDT [facility] Urine URINE SPECIMEN OBTAINED BY CLEAN CATCH PROCEDURE / Unknown Collection / Unknown 08/18/2023 12:00 PM CDT 08/18/2023 1:46 PM CDT Narrative [facility] - 08/18/2023 2:23 PM CDT The ACOG 2013 Guidelines recommend using a cutoff of >/= 0.30 protein/creatinine ratio for the diagnosis and management of preeclampsia. Rena COWART URINE ORDERABLES Final Result [facility] CLIA# [id number] [address] [place] [address] * URIC ACID (08/18/2023 12:00 PM CDT) URIC ACID 4.0 2.4 - 5.7 mg/dL 08/18/2023 2:17 PM CDT [facility] Blood Venipuncture / Unknown 08/18/2023 12:00 PM CDT 08/18/2023 1:46 PM CDT Rena Edgar [facility] CHEMISTRY ORDERABLES Fi nal Result [facility] CLIA# [id number] [address] [place] [address] * (ABNORMAL) COMPREHENSIVE METABOLIC PANEL (08/18/2023 12:00 PM CDT) [facility] SODIUM 137 136 - 145 mmol/L 08/18/2023 2:17 PM CDT [facility] [place] POTASSIUM 3.9 3.5 - 5.0 mmol/L 08/18/2023 2:17 PM CDT [facility] [place] CHLORIDE 102 98 - 107 mmol/L 08/18/2023 2:17 PM CDT [facility] [place] CO2 21(L) 22 - 29 mmol/L 08/18/2023 2:17 PM CDT [facility] [place] CALCIUM 8.8 8.6 - 10.2 mg/dL 08/18/2023 2:17 PM CDT [facility] [place] BUN 4(L) 6 - 20 mg/dL 08/18/2023 2:17 PM CDT [facility] [place] CREATININE 0.44(L) 0.51 - 0.95 mg/dL 08/18/2023 2:17 PM CDT [facility] [place] GLUCOSE 84 74 - 99 mg/dL 08/18/2023 2:17 PM CDT [facility] [place] TOTAL PROTEIN 6.8 6.7 - 8.6 g/dL 08/18/2023 2:17 PM CDT [facility] [place] ALBUMIN 3.6 3.5 - 5.2 g/dL 08/18/2023 2:17 PM CDT [facility] [place] BILIRUBIN TOTAL 0.6 0.3 - 1.2 mg/dL 08/18/2023 2:17 PM CDT [facility] [place] ALKALINE PHOSPHATASE 148(H) 35 - 104 U/L 08/18/2023 2:17 PM CDT [facility] [place] AST 15 <33 U/L 08/18/2023 2:17 PM CDT [facility] [place] ALT 10 <34 U/L 08/18/2023 2:17 PM CDT [facility] [place] GFR >60 >=60 mL/min/1.7 3 sq meter 08/18/2023 2:17 PM CDT [facility] Comment:eGFR calculated with 2020 CKD-EPI equation. Vegetarian diet, extremely high or low muscle mass, and may affect results. Cystatin C with Glomerular Filtration Rate is a suitable alternative for these patients. ANION GAP 14 8 - 16 mmol/L 08/18/2023 2:17 PM CDT [facility] Blood Venipuncture / Unknown 08/18/2023 12:00 PM CDT 08/18/2023 1:46 PM CDT [facility] - 08/18/2023 2:17 PM CDT Samples containing indocyanine green cause interferences on Total and/or Direct Bilirubin and must not be measured. Rena Edgar [facility] CHEMISTRY ORDERABLES Fi nal Result [facility] CLTX# [id number] [address] [place] [address] * (ABNORMAL) CBC WITH DIFFERENTIAL (08/18/2023 12:00 PM CDT) WBC 6.7 4.0 - 9.8 K/uL 08/18/2023 1:54 PM CDT [facility] RBC 4.33 3.90 - 4.90 M/uL 08/18/2023 1:54 PM CDT [facility] HEMOGLOBIN 12.2 11.8 - 14.8 g/dL 08/18/2023 1:54 PM CDT [facility] HEMATOCRIT 36.7 35.5 - 44.0 % 08/18/2023 1:54 PM CDT [facility] SERVICES [facility] MCV 84.8 82.0 - 99.0 fL 08/18/2023 1:54 PM CDT [facility] MCH 28.2 27.2 - 32.6 pg 08/18/2023 1:54 PM CDT [facility] MCHC 33.2 31.5 - 35.5 g/dL 08/18/2023 1:54 PM CDT [facility] RDW 15.8(H) 11.5 - 14.5 % 08/18/2023 1:54 PM CDT [facility] RDW-STDEV 48.3 37.1 - 48.7 fL 08/18/2023 1:54 PM CDT [facility] PLATELETS 190 140 - 350 K/uL 08/18/2023 1:54 PM CDT [facility] MPV 10.4 9.3 - 12.4 fL [...] [facility] [place] BASOPHILS 0 % 08/18/2023 1:54 PM CDT [facility] . [facility] IMMATURE GRANULOCYTES 0 % 08/18/2023 1:54 PM CDT [facility] [place] NEUTROPHIL ABSOLUTE 4.56 1.90 - 7.00 K/uL 08/18/2023 1:54 PM CDT [facility] . [facility] LYMPHOCYTE ABSOLUTE 1.53 0.70 - 4.50 K/uL 08/18/2023 1:54 PM CDT [facility] - . [facility] MONOCYTE ABSOLUTE 0.52 0.10 - 1.30 K/uL 08/18/2023 1:54 PM CDT [facility] . [place] EOSINOPHIL ABSOLUTE 0.06 0.00 - 0.70 K/uL 08/18/2023 1:54 PM CDT [facility] [place] BASOPHILS ABSOLUTE 0.02 0.00 - 0.20 K/uL 08/18/2023 1:54 PM CDT [facility] - . [facility] IMMATURE GRANULOCYTES ABSOLUTE 0.03 0.00 - 0.03 K/uL 08/18/2023 1:54 PM CDT [facility] - . [facility] Blood Venipuncture / Unknown 08/18/2023 12:00 PM CDT 08/18/2023 1:46 PM CDT us Rena COWARTM HEMATOLOGY ORDERABLES F inal Result Performing Organization Address [facility] Co de Phone Number [facility]# [id number] [address] [place] [address] documented in this encounter Visit Diagnoses Not on filedocumented in this encounter
--- OUTSIDE RECORDS SUMMARY | 2025-06-07 00:22 | XMS_ITS | Referral Summary ---
Author Organization [facility] Building B Address [address] [place] [address] Care Team Providers Care Canoe Maker Name Role Phone Unknown, Notinfile Primary Care [...] Comments Blood Pressure 132/82 11/05/2022 3:00 PM DAY CARE HOME MOTHER Pulse 84 11/05/2022 3:00 PM [facility] CARE HOME MOTHER Temperature - - Respiratory Rate - - Oxygen Saturation - - Inhaled Oxygen Concentration - - Weight 68 kg (150 lb) 11/05/2022 3:00 PM [facility] C[facility] HOME MOTHER Height 132.1 cm (4' 4) 11/05/2022 3:00 PM [facility] C[facility] HOME MOTHER Body Mass Index 39 11/05/2022 3:00 PM [facility] CARE HOME MOTHER Plan of Treatment Not on file Insurance CLARISSA ALLEGIANCE Care Teams Canoe Maker Relationship Specialty Start Date End Date Unknown, Notinfile PCP - General 09/26/22
--- OUTSIDE RECORDS SUMMARY | 2025-06-07 00:22 | XMS_ITS | Clinical Summary ---
Author Organization [facility] Address [address] [place] [address] Care Team Providers Care Computer Installer Name Role Phone Unavailable Primary Care Provider Unavailabl e Source Comments [facility],non-owned Affiliates and Associated Physician Practices is amultiple site organization consisting of ambulatory clinics and hospital sitesin [place], [place], [place] and [place]. This disclosure is being madepursuant to the Care Everywhere program and may not contain all information available regarding this patient. Last updated 18.[facility] [place] Allergies No known active allergies Medications * [...] file Legal Sex Female 2:11 PM DIRECTOR PHARMACY SERVICES Gender Identity Not on file Sexual Orientation [...]
--- OUTSIDE RECORDS SUMMARY | 2025-06-07 00:22 | XMS_ITS | Encounter Summary ---
Author Organization [facility] Address [address] [place] [address] Care Team Providers Care Engine Designer Name Role Phone Unavailable Primary Care Provider Unavailabl e Encounter Details Date Type Department Care Team (Late st Contact Info) Description 06/06/2025 Results Follow-Up [facility] [place] [address] [place] [address] Nanda Love MD [address] [place] [address] TSH, LIPID PANEL, COMPREHENSIVE METABOLIC [...]
--- OUTSIDE RECORDS SUMMARY | 2025-06-07 00:22 | XMS_ITS | Clinical Summary ---
Author Organization [facility] Building B Address [address] [place] [address] Care Team Providers Care Gas Systems Worker Name Role Phone Unknown, Notinfile Primary Care [...] Comments Blood Pressure 132/82 11/05/2022 3:00 PM CUSTOMER RELATIONS REPRESENTATIVE Pulse 84 11/05/2022 3:00 PM CUSTOMER RELATIONS REPRESENTATIVE Temperature - - Respiratory Rate - - Oxygen Saturation - - Inhaled Oxygen Concentration - - Weight 68 kg (150 lb) 11/05/2022 3:00 PM CUSTOMER RELATIONS REPRESENTATIVE Height 132.1 cm (4' 4) 11/05/2022 3:00 PM CUSTOMER RELATIONS REPRESENTATIVE Body Mass Index 39 11/05/2022 3:00 PM CUSTOMER RELATIONS REPRESENTATIVE Plan of Treatment Health Maintenance Due Date [...] this topic Insurance CLARISSA ALLEGIANCE Care Teams Gas Systems Worker Relationship Specialty Start Date End Date Unknown, Notinfile PCP - General 09/26/22
--- NOTE | 2025-06-07 00:33 | ED.FEMALEGU ---
HPI - Female Genitourinary General Chief complaint: Urogenital-Female Stated complaint: possible prolapsed uterus Time Seen by Provider: 06/06/25 23:47 History of Present Illness HPI Narrative: 25-year-old female presents emergency department with concerns for a uterine prolapse. Patient has had 2 vaginal deliveries, last being in August of 2023. Patient is reporting a sensation of heaviness and fullness in her vagina. She states today when she took a shower she looked at her vagina and thought she saw something pink and ?fleshy? sticking out. She states today she developed urinary urgency and some vaginal itxching. She denies vaginal discharge or concern for STDs. She had not started her menstrual cycle since her last delivery until May 11, 2025. She states the period was light, lasted 2 days and then went away. She then had light bleeding May 23 and then the bleeding stopped again. She had return of light vaginal bleeding today. She states she changes her tampon twice daily when the bleeding occurs. Patient does not believe she is . Denies any nausea, vomiting, vaginal pain, abdominal pain. Her OBGYN is Dr. Patiño. Related Data Allergies Allergy/AdvReac Type Severity Reaction Status Date / Time No Known Allergies Allergy Verified 06/06/25 22:35 Review of Systems Review of Systems: All systems reviewed & are unremarkable except as noted in HPI and below PMFSH Past Medical History Medical History Surveillance for Depo-Provera contraception Suppression of menses HSV-2 infection Social History Social History Smoking status: Never smoker Alcohol intake: never Substance use: never Lack of Transportation: No Lack of Food: Never True Current Housing: I Have Housing Concerned About Future Housing: No Difficulty Paying Gas/Electric Bills: No Difficulty Paying for Meds: No Currently Unemployed: No Education: High School Diploma/GED Difficulty w/ Childcare or Family Care: No Living arrangements: with family Occupation/Education: occupation Gender identity (if verbalized by the patient): Female Sexual Orientation (if Verbalized by the Patient): Straight or Heterosexual Exam Narrative: GENERAL: Well-appearing, well-nourished, and in no acute distress. HEAD: Normocephalic, atraumatic. EYES: EOMI. ENT: Nares clear, no rhinorrhea or epistaxis. Mucous membranes moist. NECK: Supple. CHEST: Clear to auscultation. No respiratory distress. HEART: Regular rate and rhythm. No murmur heard. Normal peripheral pulses. ABDOMEN: Soft, nontender, nondistended, normal active bowel sounds. No rebound, guarding or rigidity. No CVA tenderness : Chaperoned by DARYN Lund: Normal external genitalia. Mild amount of physiologic discharge in vaginal canal. Cervical os is closed. No adnexal masses or tenderness. No CMT. Cervix is low lying EXTREMITIES: Normal range of motion. No edema. SKIN: Warm, dry, no rash. NEURO: No focal deficits. Alert and oriented x3 Course Vital Signs Vital signs: Vital Signs Temperature 98.0 F 06/06/25 22:42 Pulse Rate 79 06/06/25 22:42 Respiratory Rate 18 06/06/25 22:42 Blood Pressure 147/94 H 06/06/25 22:42 Pulse Oximetry 100 06/06/25 22:42 Oxygen Delivery Room Air 06/06/25 22:42 Temperature 98.0 F 06/06/25 22:42 Pulse Rate 65 06/07/25 01:23 Respiratory Rate 18 06/07/25 01:23 Blood Pressure 123/81 06/07/25 01:23 Pulse Oximetry 100 06/07/25 01:23 Oxygen Delivery Room Air 06/07/25 00:14 MDM - Female Genitourinary MDM Narrative Medical decision making narrative: 25-year-old female presents emergency department with concerns for a uterine prolapse. Also endorsing some urinary frequency and dysuria as well as irregular light vaginal bleeding throughout the past several weeks. See HPI for further history. Vitals stable. Patient is afebrile and nontoxic appearing. Exam is notable for the above. Notably pelvic exam shows a low-lying cervix. No bleeding. There is physiologic discharge in the vaginal vault. No CMT, adnexal masses or tenderness. Lab work shows no leukocytosis or anemia. Chemistries are unremarkable. UA with trace ketones and 3-5 rbc's, no white blood cells or bacteria. There is yeast noted UA and patient is reporting vaginal itching, will start her on fluconazole. is negative. Coags are normal. Patient updated on results. Advised to follow-up closely with her OBGYN. Discussed strict ED return precautions. She is agreeable with the plan verbalized understanding. Discharged in stable condition. Lab Data 06/07/25 01:00 06/07/25 01:00 Labs: Lab Results 06/07/25 06/07/25 06/07/25 Range/Units 00:48 00:53 01:00 WBC 8.6 (4.5-10.0) K/mm3 RBC 4.26 (4.2-5.4) M/mm3 Hgb 12.1 (12.0-15.0) g/dL Hct 36.0 L (37.0-47.0) % MCV 84.5 (80-100) fl MCH 28.4 (26-34) pg MCHC 33.6 (32-36) g/dl RDW 12.8 (11.5-14.5) % Plt Count 267 (150-375) k/mm3 MPV 8.8 (7.4-10.4) fl Immature Gran % (Auto) 0.2 (0-0.5) % Neut % (Auto) 52.0 (45.5-73.1) % Lymph % (Auto) 37.6 (18.3-44.2) % [place] % (Auto) 6.5 (2.6-8.5) % Eos % (Auto) 3.2 (0-4.4) % Baso % (Auto) 0.5 (0.2-1.2) % Lymph # (Auto) 3.25 H (0.9-3.2) K/mm3 [place] # (Auto) 0.6 (0.1-0.6) K/mm3 Eos # (Auto) 0.3 (0-0.3) K/mm3 Baso # (Auto) 0.0 (0.0-0.1) K/mm3 Abs Immat Gran (auto) 0.02 (0.00-0.031) K/mm3 Absolute Neuts (auto) 4.5 (1.3-6.7) K/mm3 Absolute Nucleated RBC 0.000 (0.0-0.012) K/mm3 Nucleated RBC % 0.0 (0.0-0.2) % PT 14.2 (11.1-14.7) Seconds INR 1.1 APTT 28.1 (22.3-36.8) Seconds Sodium 139 (137-145) mmol/L Potassium 3.7 (3.4-5.0) mmol/L Chloride 106 (98-107) mmol/L Carbon Dioxide 25 (22-30) mmol/L Anion Gap 8 (4-12) mmol/L BUN 9 (7-17) mg/dL Creatinine 0.73 (0.7-1.0) mg/dL Estim Creat Clear Calc 93 ml/min Estimated GFR > 60 (59 - ) Glucose 104 (65-110) mg/dL Calcium 9.1 (8.4-10.2) mg/dL Total Bilirubin 0.6 (0.2-1.3) mg/dL AST 28 (14-36) U/L ALT 16 (6-35) U/L Alkaline Phosphatase 77 (38-126) U/L Total Protein 7.7 (6.3-8.2) g/dL Albumin 4.2 (3.5-5.1) g/dL Urine Color Yellow (Yellow) Urine Appearance Cloudy H (Clear) Urine pH 5.5 (5.0-9.0) Ur Specific [place] 1.027 (1.001-1.035) Urine Protein Trace (Negative) mg/dL Urine Glucose (UA) Negative (Negative) mg/dL Urine Ketones Trace H (Negative) mg/dL Ur Blood (Man) Trace (Negative) Urine Nitrate Negative (Negative) Urine Bilirubin Negative (Negative) Urine Urobilinogen 1.0 (<2.0) mg/dL Add Ur Microanalysis Reviewed Leukocyte Esterase Rfl Negative (Negative) SRPING/UL Urine RBC 3-5 H (0-2) /hpf Urine WBC 0-5 (0-3) /hpf Ur Squamous Epith Cells None seen (Few) /hpf Calcium Oxalate Crystal Present (None) /hpf Urine Bacteria None seen /hpf Urine Casts 0-2 Urine Yeast (Budding) Present H (None) /hpf POC Urine HCG, Qual Negative (Negative) Discharge Plan Discharge Clinical Impression: Yeast vaginitis, Abnormal uterine bleeding Patient Disposition: Home Condition: Stable Instructions: Antibiotic Form, Yeast Infection (ED) Additional Instructions: Your evaluated in the emergency department with concerns for uterine prolapse. Your exam shows a possible slight uterine prolapse as discussed. Your urine test shows no evidence of infection but does showed yeast. Please repeat the dose of fluconazole in 3 days if you continue to have vaginal itchiness. Please follow-up closely with your OBGYN. Return to the emergency department if you develop abdominal pain, fever, your bleeding through 1 pad or tampon an hour, or other concerning symptoms. Patient Language: [place]ian Prescriptions: New fluconazole 150 mg tablet 150 mg PO ONCE Qty: 1 0RF Rx Instructions: as a single dose No Action norgestimate-ethinyl estradiol [Sprintec (28)] 0.25-35 mg-mcg tablet 1 tablet PO DAILY Qty: 84 3RF Follow-up/Referrals: PHYSICIAN,OBIEE [employer]IA [employer]CH[employer] [Primary Care Provider] - Mega Patiño MD [Physician] -
[2025-06-07 00:56] LABS: BEDSIDEPREGUCG Negative (Negative)
[2025-06-07 01:07] LABS: Hematocrit 36.0 % (37.0-47.0); Hemoglobin 12.1 g/dL (12.0-15.0); Immature Granulocyte Percent A 0.2 % (0-0.5); Lymphocytes Absolute Auto 3.25 K/mm3 (0.9-3.2); Mean Corpuscular HGB Conc 33.6 g/dl (32-36); Mean Corpuscular Hemoglobin 28.4 pg (26-34); Mean Corpuscular Volume 84.5 fl (80-100); Nucleated Red Blood Cells Absolute Auto 0.000 K/mm3 (0.0-0.012); Nucleated Red Blood Cells Perc 0.0 % (0.0-0.2); Platelet Count Result 267 k/mm3 (150-375); Red Blood Count 4.26 M/mm3 (4.2-5.4); White Blood Count 8.6 K/mm3 (4.5-10.0)
[2025-06-07 01:18] LABS: INR 1.1; Prothrombin Time 14.2 Seconds (11.1-14.7)
[2025-06-07 01:19] LABS: Partial Thromboplastin Time 28.1 Seconds (22.3-36.8)
[2025-06-07 01:23] VITALS: BP 123/81; PULSE 65; RESP 18; O2SAT 100
[2025-06-07 01:23] LABS: Add Urine Microscopic? YES; Appearance Urine Cloudy (Clear); Budding Yeast Urine Present /hpf; Glucose Urine UA Negative (Negative); Leukocyte Esterase Ur Negative LEU/UL (Negative); Need Manual Microscopic Reviewed; Nitrate Urine Negative (Negative); Non Pathogenic Casts 0-2; Specific Grav Ur 1.027 (1.001-1.035)
[2025-06-07 01:28] LABS: Alanine Aminotransferase 16 U/L (6-35); Albumin Level 4.2 g/dL (3.5-5.1); Alkaline Phosphatase 77 U/L (38-126); Anion Gap 8 mmol/L (4-12); Aspartate Amino Transferase 28 U/L (14-36); Bilirubin,Total 0.6 mg/dL (0.2-1.3); Blood Urea Nitrogen 9 mg/dL (7-17); Calcium 9.1 mg/dL (8.4-10.2); Carbon Dioxide 25 mmol/L (22-30); Chloride 106 mmol/L (98-107); Estimated CRCL calculation 93 ml/min; Estimated Glomerular Filt Rate > 60; Glucose 104 mg/dL (65-110); Potassium 3.7 mmol/L (3.4-5.0); Sodium 139 mmol/L (137-145); Total Protein 7.7 g/dL (6.3-8.2)
[2025-06-07] MEDS: FLUCONAZOLE 150 MG TABLET PO (01:50)
[2025-06-07 02:05] VITALS: BP 135/83; PULSE 64; RESP 18; O2SAT 100
== END 2025-06-07 02:06 | disposition home or self-care (01) ==
PROVIDERS: Emergency Provider Physician Assistant
DX: B37.31 Acute candidiasis of vulva and vagina (principal); N93.9 Abnormal uterine and vaginal bleeding, unspecified
CPT/HCPCS: 36415; 80053; 81001; 81025; 85025; 85610; 85730; 99283; A9270